=== PATIENT | female | born 1975 | race Two or more races ===

== ENCOUNTER 2020-04-17 10:38 | Outpatient (REF) | payer OTHER, SELFPAY ==
--- NOTE | ~2020-04-17 | XR_ITS ---
EXAMINATION: XR KNEE, LEFT CLINICAL INFORMATION: Left knee pain. COMPARISON: None TECHNIQUE: Four views of the left knee. FINDINGS: Mild medial femoral-tibial and patellofemoral degenerative joint changes are seen. There is no acute fracture, dislocation or joint effusion. The soft tissues are unremarkable. XR/XR knee LT 4V IMPRESSION: Mild osteoarthritis. No acute fracture.
== END 2020-04-17 10:39 | disposition home or self-care (01) ==
LOC: HO.HMGCX 10:38
PROVIDERS: Absent Provider Nurse Practitioner Family; PCP Nurse Practitioner Family; Visit Provider Nurse Practitioner Family
DX: M25.562 Pain in left knee (principal)
CPT/HCPCS: 73564

== ENCOUNTER 2020-06-08 09:00 | Outpatient (RCR) | payer OTHER, SELFPAY ==
--- NOTE | 2020-04-29 15:33 | MHC.PT.EP ---
[facility] [place] Office [place] Office [place] Office [address] [phone] F: [phone] F: [phone] F: [phone] F: [phone] Physical Therapy Plan of Care Date of Evaluation: 04/29/20 Date of Surgery: Diagnosis: L knee pain, L knee OA. Assessment: Pt is a 44 y/o female referred to PT for eval and treat of L knee pain who presents with signs and sx consistent with L knee dysfunction resulting in decreased tolerance and ability to perform ambulatory and standing tasks for duration, performing squatting activities and heavy HH chores secondary to decreased B hip and L knee strength, decreased L knee ROM as well as decreased LE posture, increased tissue tension, gait abnormality and pain. Pt is deemed an appropriate candidate to receive skilled PT in order to address her physical limitations to improve her functional ability. Frequency and Duration: The patient will be seen 2 x / wk x 5 wks. Short Term Goals: In 1 week: initiate HEP with evidence of compliance. In 3 weeks: improve baseline pain to < 6/10, initial 10/10 with activity. In 3 weeks:improve L knee flexion ROM to > 114 degrees; initial 100. Alf Goals: In 5 weeks: Pt will report able to walk 2 blocks with at most a little bit of difficulty; initial: quite a bit of difficulty (LEFI) In 5 weeks: Pt will achieve > 4+/5 L knee extension MMT: initial: 4-/5. Treatment Plan: Modalities to reduce pain, spasms and effusion. Manual therapy to restore motion and function. Therapeutic exercise to improve strength and flexibility. Neuromuscular re-education for posture and balance. Therapeutic activities to return to functional activities of daily living. Electronically signed by: Khris Ceballos PT. Please sign and return to therapist. Thank you for your referral.
--- NOTE | 2020-06-08 16:32 | MHC.PT.DC ---
[facility] [place] Office [place] Office [place] Office [address] [phone] F: [phone] F: [phone] F: [phone] F: [phone] Physical Therapy Discharge Report Diagnosis: L knee pain, L knee OA. Date of Surgery: Date of Evaluation: 04/29/20 Date of Discharge: Treatments to Date: 10 Cancellations to Date: 0 No Shows to Date: 0 Discharge Status: Achieved Goals Improved Function Independent with HEP Discharge Summary: Nimisha has been and active, and motivated participant in her therapy in and out of the clinic having improved her knee pain and function and met her realistic goals within the POC timeline. Pt continues to have pain with walking long distances and stairs are still a challenge though Pt is improved and is I with her home program and is motivated to continue on her own. Electronically signed by: Khris Ceballos PT. Please sign and return to therapist. Thank you for your referral.
== END 2020-06-08 16:33 | disposition home or self-care (01) ==
LOC: HO.PTCHIC 09:00
PROVIDERS: PCP Nurse Practitioner Family; Visit Provider Nurse Practitioner Family
DX: M25.562 Pain in left knee (principal)
CPT/HCPCS: 97110; 97162

== ENCOUNTER → 2020-06-16 12:13 | Outpatient (BNVA) | payer OTHER, SELFPAY | PROVIDERS: PCP Nurse Practitioner Family; Visit Provider Surgery | DX: Z01.818 Encounter for other preprocedural examination (principal); E66.01 Morbid (severe) obesity due to excess calories; R06.02 Shortness of breath; Z68.43 Body mass index [BMI] 50.0-59.9, adult | CPT/HCPCS: 99202 ==

== ENCOUNTER → 2020-07-03 08:13 | Outpatient (BNVA) | payer OTHER, SELFPAY | PROVIDERS: PCP Nurse Practitioner Family; Visit Provider Surgery | DX: E66.01 Morbid (severe) obesity due to excess calories (principal); Z68.43 Body mass index [BMI] 50.0-59.9, adult | CPT/HCPCS: 99212 ==

== ENCOUNTER → 2020-07-17 08:40 | Outpatient (BNVA) | payer OTHER, SELFPAY | PROVIDERS: PCP Nurse Practitioner Family; Visit Provider Dietitian, Registered | DX: E66.9 Obesity, unspecified (principal); Z68.43 Body mass index [BMI] 50.0-59.9, adult | CPT/HCPCS: 97802 ==

== ENCOUNTER 2020-08-04 13:52 | Outpatient (REF) | payer OTHER, SELFPAY ==
[2020-08-05 14:22] LABS: H Pylori Breath Test NOT DETECTED (NOT DETECTED)
== END 2020-08-04 13:53 | disposition home or self-care (01) ==
LOC: HO.LNP 13:52
PROVIDERS: PCP Nurse Practitioner Family; Referring Provider Nurse Practitioner Family; Visit Provider Physician Assistant
DX: Z01.818 Encounter for other preprocedural examination (principal); E66.01 Morbid (severe) obesity due to excess calories; E78.5 Hyperlipidemia, unspecified; E11.9 Type 2 diabetes mellitus without complications; K21.9 Gastro-esophageal reflux disease without esophagitis; F32.9 Major depressive disorder, single episode, unspecified; F41.8 Other specified anxiety disorders; F17.200 Nicotine dependence, unspecified, uncomplicated; Z68.43 Body mass index [BMI] 50.0-59.9, adult; Z88.8 Allergy status to other drugs, medicaments and biological substances; Z11.0 Encounter for screening for intestinal infectious diseases; Z71.3 Dietary counseling and surveillance
CPT/HCPCS: 83013; 99211; 99212

== ENCOUNTER 2020-08-11 08:16 | Outpatient (REF) | payer OTHER, SELFPAY ==
--- NOTE | ~2020-08-11 | XR_ITS ---
EXAMINATION: CHEST. Lumbar spine. CLINICAL INFORMATION: Redness of breath. Low back pain. COMPARISON: None TECHNIQUE: Chest 2 views. Lumbar spine 3 views. FINDINGS: Chest: The lungs are well-expanded and clear. The heart size and pulmonary vascularity is normal. No gross bony abnormality seen. Lumbar spine: There is normal lumbar lordosis. The vertebral heights, alignment and disc heights are normal. There is no visible acute fracture, dislocation or subluxation seen. Incidental finding of an IUD in the pelvis. XR/XR lumbar spine 2-3V IMPRESSION: Unremarkable chest exam. Unremarkable lumbar spine exam.
--- NOTE | ~2020-08-11 | XR_ITS ---
EXAMINATION: CHEST. Lumbar spine. CLINICAL INFORMATION: Redness of breath. Low back pain. COMPARISON: None TECHNIQUE: Chest 2 views. Lumbar spine 3 views. FINDINGS: Chest: The lungs are well-expanded and clear. The heart size and pulmonary vascularity is normal. No gross bony abnormality seen. Lumbar spine: There is normal lumbar lordosis. The vertebral heights, alignment and disc heights are normal. There is no visible acute fracture, dislocation or subluxation seen. Incidental finding of an IUD in the pelvis. XR/XR chest 2V IMPRESSION: Unremarkable chest exam. Unremarkable lumbar spine exam.
--- NOTE | 2020-08-11 13:13 | ECG_ITS ---
Test Reason : SOB Blood Pressure : / mmHG Vent. Rate : 082 BPM Atrial Rate : 082 BPM P-R Int : 156 ms QRS Dur : 090 ms QT Int : 376 ms P-R-T Axes : 060 022 049 degrees QTc Int : 439 ms Normal sinus rhythm Normal ECG When compared with ECG of 22-AUG-2017 11:19, No significant change was found Referred By: Danielle Rincon Electronically Signed By:Juancarlos Lr
[2020-08-11 14:50] LABS: Alanine Aminotransferase 18 U/L (0-31); Albumin Level 4.1 g/dL (3.5-5.0); Alkaline Phosphatase 89 U/L (39-117); Anion Gap 13 (12-20); Aspartate Amino Transferase 13 U/L (5-31); B Type Natriuretic Peptide < 10 pg/mL (<100); Bilirubin Total 0.6 mg/dL (0.0-1.0); Blood Urea Nitrogen 14 mg/dL (9-16); Calcium 9.7 mg/dL (8.4-10.2); Carbon Dioxide 28 mmol/L (22-29); Chloride 105 mmol/L (96-108); Estimated Glomerular Filt Rate > 60; Glucose Random 70 mg/dL (60-115); Potassium 3.9 mmol/L (3.3-5.1); Sodium 142 mmol/L (135-145); Total Protein 7.3 g/dL (6.5-8.0)
[2020-08-11 15:05] LABS: TSH reflex Free T4 3.13 uIU/mL (0.32-4.0)
== END 2020-08-11 08:17 | disposition home or self-care (01) ==
LOC: HO.XRAY 08:16
PROVIDERS: Absent Provider Surgery; PCP Nurse Practitioner Family; Referring Provider Nurse Practitioner Family; Visit Provider Physician Assistant
DX: M54.5 Low back pain (principal); R06.02 Shortness of breath; M79.89 Other specified soft tissue disorders; E66.01 Morbid (severe) obesity due to excess calories
CPT/HCPCS: 36415; 71046; 72100; 80053; 83880; 84443; 93005; Q3014

== ENCOUNTER 2020-08-18 14:02 | Outpatient (REF) | payer OTHER, SELFPAY ==
--- NOTE | ~2020-08-18 | MM_ITS ---
EXAMINATION: MM SCREENING DIGITAL BREAST TOMOSYNTHESIS, BILATERAL CLINICAL INFORMATION: Screening. Asymptomatic. The lifetime risk of breast cancer based on the Tyrer-Cuzick Model is 7%. COMPARISON: Mammography: 11/08/2018 TECHNIQUE: Digital breast tomosynthesis is performed in both the craniocaudal and mediolateral oblique views along with computer-aided detection (CAD). Synthesized 2D images are generated from the tomosynthesis. Additional views are provided: Right cleavage, bilateral MLO. FINDINGS: There are scattered areas of fibroglandular density (ACR BI-RADS breast composition Category b). Breast tissue composition borders on predominantly fatty. Background stromal and fibroglandular markings are stable. There is no developing density or interval mass or architectural abnormality. No abnormal calcifications. Skin contours are smooth. MM/MM tomosynthesis screening BI IMPRESSION: No mammographic evidence of malignancy. ASSESSMENT: BI-RADS 1: Negative RECOMMENDATION: Routine annual mammography screening. This patient's information was entered into a reminder system with a target due date for their next mammogram.
== END 2020-08-18 14:03 | disposition home or self-care (01) ==
LOC: HO.MAMMO 14:02
PROVIDERS: Visit Provider Nurse Practitioner Family
DX: Z12.31 Encounter for screening mammogram for malignant neoplasm of breast (principal)
CPT/HCPCS: 77063; 77067

== ENCOUNTER → 2020-08-19 14:06 | Outpatient (BNVA) | payer OTHER, SELFPAY | PROVIDERS: PCP Nurse Practitioner Family; Visit Provider Surgery | DX: E66.01 Morbid (severe) obesity due to excess calories (principal); Z68.44 Body mass index [BMI] 60.0-69.9, adult | CPT/HCPCS: 99212 ==

== ENCOUNTER 2020-08-21 08:33 | Outpatient (REF) | payer OTHER, SELFPAY ==
[2020-08-21 10:00] LABS: MANUAL DIFF FLAG NO
[2020-08-21 10:07] LABS: Basophils Percent Auto 0.2 % (0-2); Eosinophils Absolute Auto 0.3 X10*3/uL (0.0-0.4); Eosinophils Percent Auto 3.7 % (0-4); Hematocrit 34.9 % (37-47); Hemoglobin 11.4 g/dl (12.0-16.0); Imm Gran Abs Auto 0.04 X10*3/uL (0.00-0.03); Imm Gran Pct Auto 0.5 % (0.0-0.4); Lymphocytes Absolute Auto 3.4 X10*3/uL (1.2-4.9); Lymphocytes Percent Auto 37.8 % (20-40); Mean Corpuscular HGB Conc 32.7 g/dl (31.0-35.0); Mean Corpuscular Hemoglobin 29.9 pg (27.0-33.0); Mean Corpuscular Volume 91.6 fL (80-98); Mean Platelet Volume 10.7 fL (9.4-12.3); Monocytes Absolute Auto 0.6 X10*3/uL (0.1-1.2); Monocytes Percent Auto 6.9 % (2-11); Neutrophils Absolute Auto 4.5 X10*3/uL (2.0-8.3); Neutrophils Percent Auto 50.9 % (45-73); Platelet Count 241 X10*3/uL (160-400); Red Blood Count 3.81 X10*6/uL (4.20-5.50); Red Cell Distribution Width 13.9 % (11.0-16.0); White Blood Count 8.9 X10*3/uL (4.8-10.8)
[2020-08-21 10:27] LABS: Alanine Aminotransferase 14 U/L (0-31); Alkaline Phosphatase 86 U/L (39-117); Anion Gap 13 (12-20); Aspartate Amino Transferase 13 U/L (5-31); Bilirubin Total 0.5 mg/dL (0.0-1.0); Blood Urea Nitrogen 15 mg/dL (9-16); C Reactive Protein 0.36 mg/dL (< or = 0.50); Carbon Dioxide 26 mmol/L (22-29); Chloride 108 mmol/L (96-108); Cholesterol 124 mg/dL; Estimated Glomerular Filt Rate > 60; Glucose Fasting 107 mg/dL (60-99); HDL Cholesterol 41 mg/dL; Iron 64 mcg/dL (30-160); LDL Cholesterol Calculated 72 mg/dl; Percent Iron Saturation 21 % (15-50); Sodium 143 mmol/L (135-145); Total Iron Binding Capacity 301 mcg/dL (228-428); Total Protein 7.1 g/dL (6.5-8.0); Triglycerides 55 mg/dL; Unsaturated Iron Binding 237 ug/dL
[2020-08-21 10:39] LABS: Vitamin B12 221 pg/mL (200-900)
[2020-08-21 10:41] LABS: Estimated Average Glucose 183 mg/dL
[2020-08-21 10:49] LABS: Thyroid Stimulating Hormone 5.67 uIU/mL (0.32-4.0); Vitamin D 25-OH Total 30.1 ng/mL (>30)
[2020-08-25 02:46] LABS: Zinc 62 mcg/dL (60-130)
[2020-08-25 10:02] LABS: Calcium (PTHI) 9.4 mg/dL (8.6-10.2); PTHI 27 pg/mL (14-64)
[2020-08-26 16:22] LABS: Vitamin B1 9 nmol/L (8-30)
[2020-08-26 20:27] LABS: Vitamin A 50 mcg/dL (38-98)
== END 2020-08-21 08:34 | disposition home or self-care (01) ==
LOC: HO.LAB 08:33
PROVIDERS: PCP Nurse Practitioner Family; Visit Provider Surgery
DX: Z01.818 Encounter for other preprocedural examination (principal); K91.2 Postsurgical malabsorption, not elsewhere classified; Z90.3 Acquired absence of stomach [part of]
CPT/HCPCS: 36415; 80053; 80061; 82306; 82607; 83036; 83540; 83970; 84425; 84443; 84590; 84630; 85025; 86140

== ENCOUNTER → 2020-08-26 09:37 | Outpatient (BNVA) | payer OTHER, SELFPAY | PROVIDERS: PCP Nurse Practitioner Family; Visit Provider Obstetrics & Gynecology ==

== ENCOUNTER → 2020-09-07 11:15 | Outpatient (BNVA) | payer OTHER, SELFPAY | PROVIDERS: Visit Provider Obstetrics & Gynecology | CPT/HCPCS: Q3014 ==

== ENCOUNTER → 2020-09-08 14:29 | Outpatient (BNVA) | payer OTHER, SELFPAY | PROVIDERS: PCP Nurse Practitioner Family; Visit Provider Physician Assistant | DX: E66.01 Morbid (severe) obesity due to excess calories (principal); Z68.43 Body mass index [BMI] 50.0-59.9, adult | CPT/HCPCS: 99212 ==

== ENCOUNTER 2020-09-16 12:50 | Outpatient (REF) | payer OTHER, SELFPAY ==
[2020-09-16 14:30] LABS: Free T4 (Free Thyroxine) 0.85 ng/dL (0.71-1.85); HCG Quantitative < 2 mIU/mL
[2020-09-17 14:07] LABS: Triiodothyronine T3 Free 2.7 pg/mL (2.3-4.2)
[2020-09-17 17:47] LABS: Prolactin 45.4 ng/mL
== END 2020-09-16 12:51 | disposition home or self-care (01) ==
LOC: HO.LAB 12:50
PROVIDERS: PCP Nurse Practitioner Family; Visit Provider Obstetrics & Gynecology
DX: N91.2 Amenorrhea, unspecified (principal)
CPT/HCPCS: 36415; 84146; 84439; 84481; 84702

== ENCOUNTER 2020-09-18 13:36 | Outpatient (REF) | payer OTHER, SELFPAY ==
[2020-09-19 10:16] LABS: Prolactin 42.3 ng/mL
== END 2020-09-18 13:37 | disposition home or self-care (01) ==
LOC: HO.LAB 13:36
PROVIDERS: PCP Nurse Practitioner Family; Visit Provider Obstetrics & Gynecology
DX: N91.2 Amenorrhea, unspecified (principal)
CPT/HCPCS: 36415; 84146

== ENCOUNTER → 2020-09-22 15:00 | Outpatient (BNVA) | payer OTHER, SELFPAY | PROVIDERS: PCP Nurse Practitioner Family; Referring Provider Nurse Practitioner Family; Visit Provider Surgery | DX: E66.01 Morbid (severe) obesity due to excess calories (principal); Z68.43 Body mass index [BMI] 50.0-59.9, adult | CPT/HCPCS: 99212 ==

== ENCOUNTER 2020-09-24 13:27 | Outpatient (REF) | payer OTHER, SELFPAY ==
--- NOTE | ~2020-09-24 | US_ITS ---
EXAMINATION: ULTRASOUND PELVIS AND TRANSVAGINAL CLINICAL INFORMATION: Amenorrhea. COMPARISON: None TECHNIQUE: Transabdominal and transvaginal imaging of pelvis is performed. The exam is limited secondary to patient's body habitus. FINDINGS: The uterus is anteverted and anteflexed measuring 6.5 cm wide. The length could not be obtained. The endometrial thickness is not well visualized. The uterus is homogeneous otherwise. Both ovaries are not seen. There is no free fluid in the cul-de-sac. US/US pelvic and transvaginal IMPRESSION: Limited exam secondary to patient's body habitus. Unremarkable uterus. The ovaries are not seen. No free fluid in the cul-de-sac.
== END 2020-09-24 13:28 | disposition home or self-care (01) ==
LOC: HO.US 13:27
PROVIDERS: Visit Provider Obstetrics & Gynecology
DX: N91.2 Amenorrhea, unspecified (principal)
CPT/HCPCS: 76830; 76856

== ENCOUNTER → 2020-09-29 07:57 | Outpatient (BNVA) | payer OTHER, SELFPAY | PROVIDERS: Visit Provider Obstetrics & Gynecology | DX: Z30.432 Encounter for removal of intrauterine contraceptive device (principal); E22.1 Hyperprolactinemia | CPT/HCPCS: 58301; 99212 ==

== ENCOUNTER → 2020-10-20 13:12 | Outpatient (BNVA) | payer OTHER, SELFPAY | PROVIDERS: Visit Provider Surgery | DX: E66.01 Morbid (severe) obesity due to excess calories (principal); E78.5 Hyperlipidemia, unspecified; K21.9 Gastro-esophageal reflux disease without esophagitis; E11.65 Type 2 diabetes mellitus with hyperglycemia; I10 Essential (primary) hypertension; F17.200 Nicotine dependence, unspecified, uncomplicated; Z68.44 Body mass index [BMI] 60.0-69.9, adult; Z88.1 Allergy status to other antibiotic agents; Z88.8 Allergy status to other drugs, medicaments and biological substances; Z79.899 Other long term (current) drug therapy | CPT/HCPCS: 99212 ==

== ENCOUNTER → 2020-12-07 09:28 | Outpatient (REF) | payer OTHER, SELFPAY ==
--- NOTE | 2020-12-07 09:32 | CA_ITS ---
Transthoracic Echocardiogram Patient (Last, First, Middle): Nimisha Schultz C Gender: Female Date of : 1975 Age: 45 Procedure Date: 12/07/2020 Procedure Type: Transthoracic Echocardiogram Location: OP Height: 152.4 cm Weight: 136.08 kg BSA: 2.22 m2 Heart Rate: bpm BP: 130 / 70 mmHg Energy Management Specialist: VALERIE Referring MD: Nile Pruett OPHTHALMIC TECHNICIAN- Symptoms: M79.89 - Other specified soft tissue disorders Study Quality: Fair/Refused contrast ECG Rhythm: Sinus Conclusions: - The left ventricular systolic function is normal. The visually estimated ejection fraction is between 55-60%. - No obvious valvular pathology seen on this study. Findings Procedure Information The patient declines contrast. Left Ventricle Normal left ventricular cavity size. There is mildly increased left ventricular wall thickness. The left ventricular systolic function is normal. The visually estimated ejection fraction is between 55-60%. There is no evidence of regional wall motion abnormalities. Diastolic function is normal for age. Right Ventricle Normal right ventricular cavity size. There is low normal right ventricular systolic function. TAPSE 1.8cm. Atria Both atria are normal in size. Aortic Valve There is a normal trileaflet aortic valve. There is no aortic valve stenosis. The mean gradient is 7 mmHg. There is no aortic valve regurgitation. Mitral Valve There is mild mitral annular calcification. There is no mitral valve regurgitation. There is no mitral valve stenosis. Pulmonic Valve The pulmonic valve was not well visualized. Tricuspid Valve Normal tricuspid valve structure. There is trace tricuspid valve regurgitation. The pulmonary artery systolic pressure is normal. Great Vessels The asc aorta and aortic arch are normal in size. Venous The inferior vena cava is normal in size and collapses greater than 50% with inspiration. Pericardium/Pleural There is no evidence of pericardial effusion. Prior Study Comparison No prior study available for comparison. Recommendations, Care & Conclusions No obvious valvular pathology seen on this study. Measurements 2D Linear Measurements IVSd: 1.08 0.6-0.9/0.6-1.0 cm LVIDd: 5.40 3.9-5.3/4.2-5.9 cm LVIDd Index: 2.43 2.4-3.2/2.2-3.1 cm/m2 LVIDs: 3.93 2.0-3.6 cm LVPWd: 1.04 0.7-1.1 cm Ao Root: 2.50 2.1-3.5 cm LA Diam: 3.80 2.7-3.8/3.0-4.0 cm LAIDs Index: 1.71 1.5-2.3 cm/m2 LV Mass: 278.51 67-162/88-224 g LV Mass Index: 125.45 43-95/49-115 g/m2 LVOT Diam: 2.10 3.0+(-)1.3 cm Mitral Valve MV Pk E: 0.93 MV PK A: 0.76 MV Decel Time: 214.00 E/A: 1.20 E'Lateral: 6.42 E'Medial: 6.20 E/E' Med: 15.10 E/E' Lat: 14.50 PHT: 63.00 MVA PHT: 3.49 Decel [place]: 4.36 Aortic Valve AoV Pk Pedro: 1.89 AoV Mn Pedro: 1.29 AoV VTI: 0.41 AoV Pk Grad: 14.00 Aov Mn Grad: 7.00 DENNYS Cont.VTI: 1.69 LVOT LVOT Pk Pedro: 0.87 LVOT Mn Pedro: 0.60 LVOT VTI: 0.20 LVOT Pk Grad: 3.00 LVOT Mn Grad: 2.00 LVOT Diam: 2.10 LVOT Area: 3.46 Diastolic Function MV Pk E: 0.93 MV Pk A: 0.76 E/A: 1.20 E'Medial: 6.20 E/E' Med: 15.10 E' Laterial: 6.42 E/E' Lat: 14.50 Right Ventricle TAPSE (mm): 1.80 TVS' Pedro: 12.10 Tricuspid Valve TR Pk Pedro: 1.51 TR Pk Grad: 9.00 RA Press: 3.00 RVSP: 12.00 Great Vessels Aorta Ao Root-2D: 2.50 2.0-3.7 cm Ao Asc: 3.00 2.1-3.4 cm Ao Arch: 2.70 Updated in Other Vendor System with Status of Final Frankie Fountain MD electronically signed on 12/07/2020 3:38:12 PM with status of Final
== END ==
LOC: HO.CARD 09:28
PROVIDERS: PCP Nurse Practitioner Family; Visit Provider Nurse Practitioner Family
DX: R60.0 Localized edema (principal); M79.89 Other specified soft tissue disorders
CPT/HCPCS: 93306

== ENCOUNTER → 2020-12-08 14:01 | Outpatient (BNVA) | payer OTHER, SELFPAY | PROVIDERS: Referring Provider Nurse Practitioner Family; Visit Provider Surgery | DX: E66.01 Morbid (severe) obesity due to excess calories (principal); Z68.43 Body mass index [BMI] 50.0-59.9, adult | CPT/HCPCS: 99212 ==

== ENCOUNTER → 2020-12-31 12:58 | Outpatient (BNVA) | payer OTHER, SELFPAY | PROVIDERS: PCP Nurse Practitioner Family; Visit Provider Physician Assistant Surgical | DX: E66.01 Morbid (severe) obesity due to excess calories (principal); Z68.43 Body mass index [BMI] 50.0-59.9, adult | CPT/HCPCS: 99212 ==

== ENCOUNTER → 2021-02-01 14:48 | Outpatient (BNVA) | payer OTHER, SELFPAY | PROVIDERS: PCP Nurse Practitioner Family; Referring Provider Nurse Practitioner Family; Visit Provider Physician Assistant Surgical | DX: E66.01 Morbid (severe) obesity due to excess calories (principal); Z68.43 Body mass index [BMI] 50.0-59.9, adult | CPT/HCPCS: 99212 ==

== ENCOUNTER → 2021-02-17 08:05 | Outpatient (BNVA) | payer OTHER, SELFPAY | PROVIDERS: PCP Nurse Practitioner Family; Visit Provider Dietitian, Registered | DX: E66.01 Morbid (severe) obesity due to excess calories (principal); Z68.43 Body mass index [BMI] 50.0-59.9, adult | CPT/HCPCS: 97803 ==

== ENCOUNTER → 2021-03-19 08:08 | Outpatient (BNVA) | payer OTHER, SELFPAY | PROVIDERS: PCP Nurse Practitioner Family; Referring Provider Surgery; Visit Provider Dietitian, Registered | DX: E66.01 Morbid (severe) obesity due to excess calories (principal); Z68.43 Body mass index [BMI] 50.0-59.9, adult | CPT/HCPCS: 97803 ==

== ENCOUNTER → 2021-04-20 15:27 | Outpatient (BNVA) | payer OTHER, SELFPAY | PROVIDERS: PCP Nurse Practitioner Family; Referring Provider Nurse Practitioner Family; Visit Provider Physician Assistant Surgical | DX: E66.01 Morbid (severe) obesity due to excess calories (principal); Z68.43 Body mass index [BMI] 50.0-59.9, adult | CPT/HCPCS: 99212 ==

== ENCOUNTER → 2021-06-25 14:27 | Outpatient (BNVA) | payer OTHER, SELFPAY | PROVIDERS: PCP Nurse Practitioner Family; Referring Provider Nurse Practitioner Family; Visit Provider Physician Assistant Surgical | DX: E66.01 Morbid (severe) obesity due to excess calories (principal); Z68.43 Body mass index [BMI] 50.0-59.9, adult | CPT/HCPCS: 99212 ==

== ENCOUNTER 2021-07-19 13:15 | Emergency (ER) | payer OTHER, SELFPAY ==
[2021-07-19 13:35] VITALS: BP 124/48; PULSE 95; RESP 16; TEMP 36.1; O2SAT 98; BMI 58.6
[2021-07-19 13:58] LABS: MANUAL DIFF FLAG NO
[2021-07-19 14:04] LABS: Basophils Percent Auto 0.3 % (0-2); Eosinophils Absolute Auto 0.1 X10*3/uL (0.0-0.4); Eosinophils Percent Auto 1.1 % (0-4); Hematocrit 30.4 % (37.0-47.0); Hemoglobin 10.1 g/dl (12.0-16.0); Imm Gran Abs Auto 0.05 X10*3/uL (0.00-0.03); Imm Gran Pct Auto 0.5 % (0.0-0.4); Lymphocytes Absolute Auto 3.1 X10*3/uL (1.2-4.9); Lymphocytes Percent Auto 33.3 % (20-40); Mean Corpuscular HGB Conc 33.2 g/dl (31.0-35.0); Mean Corpuscular Hemoglobin 30.5 pg (27.0-33.0); Mean Corpuscular Volume 91.8 fL (80.0-98.0); Mean Platelet Volume 11.4 fL (9.4-12.3); Monocytes Absolute Auto 0.7 X10*3/uL (0.1-1.2); NRBC Pct Auto 0.2 /100WBC (0.0-0.2); Neutrophils Absolute Auto 5.4 x10*3/uL (2.0-8.3); Neutrophils Percent Auto 57.8 % (45-73); Platelet Count 246 X10*3/uL (160-400); Red Blood Count 3.31 X10*6/uL (4.20-5.50); Red Cell Distribution Width 13.3 % (11.0-16.0); White Blood Count 9.3 X10*3/uL (4.8-10.8)
[2021-07-19 14:15] LABS: Glucose, Whole Blood 585 mg/dL (60-115)
[2021-07-19 14:21] LABS: Anion Gap 21 (12-20); Blood Urea Nitrogen 56 mg/dL (9-16); Calcium 9.6 mg/dL (8.4-10.2); Carbon Dioxide 20 mmol/L (22-29); Chloride 91 mmol/L (96-108); Creatinine Clr Calc Pharmacy 26.9; Estimated Glomerular Filt Rate 15; Glucose Random 664 mg/dL (60-115); Potassium 5.7 mmol/L (3.3-5.1); Sodium 126 mmol/L (135-145)
[2021-07-19 14:44] VITALS: BP 111/50; PULSE 88; TEMP 36.9; O2SAT 97
--- NOTE | 2021-07-19 14:52 | ED.GENADULT ---
HPI - General Adult General Chief complaint: Recheck/Abnormal Lab/Rx Stated complaint: High blood sugar 500+ Time Seen by Provider: 07/19/21 14:42 Source: patient and family Mode of arrival: ambulatory Limitations: no limitations History of Present Illness MD complaint: elevated BS, weakness Onset (ago): week(s) (2) Severity: moderate Quality: constant Relieving factors: rest Exacerbating factors: movement Associated symptoms: loss of appetite, malaise, nausea/vomiting, syncope (near), weakness and other (elevated BS, depressed not taking her insulin the way she should but reports she is not suicidal ) Treatments prior to arrival: none Related Data Home Medications Medication Instructions Recorded Confirmed alprazolam 1 mg tablet 1 mg PO TID PRN 06/16/20 06/25/21 benztropine 0.5 mg tablet 0.5 mg PO BID 06/16/20 06/25/21 blood sugar diagnostic #10 ea 06/16/20 06/25/21 buspirone 30 mg tablet 30 mg PO BID 06/16/20 06/25/21 escitalopram oxalate 20 mg tablet 20 mg PO DAILY 06/16/20 06/25/21 insulin regular hum U-500 conc 125 unit SUBCUT TID ml 06/16/20 06/25/21 lancets 28 gauge #100 ea 06/16/20 06/25/21 mirtazapine 15 mg tablet 15 mg PO BEDTIME 06/16/20 06/25/21 pen needle, diabetic 31 gauge x #1200 ea 06/16/20 06/25/21 5/16 risperidone 3 mg tablet 3 mg PO BEDTIME 06/16/20 06/25/21 dulaglutide 3 mg/0.5 mL 1.5 mg SUBCUT QWEEK ml 04/20/21 06/25/21 subcutaneous pen injector (Trulicity) Previous Rx's Medication Instructions Recorded gabapentin 600 mg tablet 600 mg PO BID 90 Days #180 tab 02/02/21 lisinopril 40 mg tablet 40 mg PO DAILY 90 Days #90 tab 03/08/21 cholecalciferol (vitamin D3) 50 50 mcg PO DAILY 90 Days #90 cap 04/14/21 mcg (2,000 unit) capsule atorvastatin 40 mg tablet 40 mg PO DAILY #90 tab 06/09/21 pantoprazole 40 mg tablet,delayed 40 mg PO BID 90 Days #180 tab 06/09/21 release metoprolol succinate 25 mg 12.5 mg PO DAILY 30 Days #15 tab 06/22/21 tablet,extended release 24 hr furosemide 20 mg tablet 20 mg PO DAILY #30 tab 07/05/21 Allergies Allergy/AdvReac Type Severity Reaction Status Date / Time azithromycin Allergy Unknown (states Verified 07/17/21 12:56 she can take a Zpack) otherwise, throat closes erythromycin base Allergy Unknown THROAT Verified 07/17/21 12:56 [ERYTHROMYCIN BASE] CLOSES UP lamotrigine [From LAMICTAL] Allergy Unknown ANAPHYLAXIS Verified 07/17/21 12:56 Erythromycin Allergy Unknown anaphylaxis Uncoded 07/17/21 12:56 Review of Systems Review of Systems: Constitutional : No Weight loss, No Fever, No Chills, pos Fatigue, pos Malaise ENT/Mouth : No sore throat, No Rhinorrhea Eyes: No Eye Pain, No Swelling, No Redness Cardiovascular : No Chest Pain, No SOB, No Dyspnea on Exertion, No Orthopnea, No Edema, No Palpitations Respiratory : No Cough, No Sputum, No Wheezing Gastrointestinal : pos Nausea, No Vomiting, No Diarrhea, No Constipation, No abdominal Pain, No Hematochezia, No Melena Genitourinary : No Dysuria, No Urinary Frequency, No Hematuria, Musculoskeletal : No joint pain, No Myalgias, No Joint Swelling Skin : No Skin Lesions, No rash Neuro : pos Weakness, No Numbness, No Dizziness, No Headache Psych : No Anxiety/Panic, pos Depression Heme/Lymph: No Bruising, No Bleeding,No Lymphadenopathy Endocrine : pos Polyuria, pos Polydipsia All other systems reviewed and are negative ON LICENSE OF [facility] Past Medical History Attestation statement: The following information was validated with the patient. Medical History Anxiety Asthma Bipolar 1 disorder Dyslipidemia GERD (gastroesophageal reflux disease) HTN (hypertension) Insomnia Severe depression Uncontrolled diabetes mellitus Surgical History History of Hx of tubal ligation S/P cholecystectomy Family History Family History Father Hypertension Diabetes Mother No problems noted. Sister No problems noted. Son No problems noted. Son No problems noted. Daughter No problems noted. Social History Social History Housing: Apartment Alcohol intake: never Patient Tobacco Use Status: Former Tobacco user Quit Date: 09/13/2020 Years Smoked: quit 09/13/2020 e-Cigarette/Vaping Use: Never Used Second Hand Smoke Exposure: Yes service: No Current occupational status: disabled Physical Exam ED Vital Signs: Vital Signs - 24 hr 07/19/21 13:35 07/19/21 14:44 Temperature 97.0 F 98.5 F Pulse Rate 95 88 Respiratory Rate 16 Blood Pressure 124/48 L 111/50 L Pulse Oximetry 98 97 BMI result Body Mass Index 58.6 Appearance: Alert. Oriented X3. No acute distress. Anxious Eyes: Pupils equal, round and reactive to light. ENT: Pharynx very dry MM Neck: Normal inspection. Neck supple. CVS: Normal heart rate and rhythm. Pulses normal. Respiratory: No respiratory distress. Breath sounds normal. Abdomen: Soft and nontender. Skin: Skin warm and dry. Normal skin color. poor skin turgor. Extremities: No lower extremity edema. No calf ttp Neuro: Oriented X 3. No motor deficit. No sensory deficit. Medical Decision Making MDM Narrative Medical decision making narrative: 45 yo female with IDDM, HTN, obesity, bipolar disorder, reports she has not taken her insulin well in 2 weeks and has been feeling sick almost like she is passing out. At this time the patient was told she will need IVF, insulin, imaging, UA and likely admission to the hospital. When she heard this she stated she had to bring her teenage daughter home and will return. She is alert and oriented x 3. I spoke to the on the phone but he states they have no other way to get the child home. The patient was told this was life threatening and that she could but she still states that she needs to leave. Patient instructed to come back PATRICIO. She is leaving against medical advice at this time Lab Data Result diagrams: 07/19/21 13:53 07/19/21 13:53 Labs: Lab Results 07/19/21 07/19/21 07/19/21 Range/Units 13:37 13:53 13:53 WBC 9.3 (4.8-10.8) X10*3/uL RBC 3.31 L (4.20-5.50) X10*6/uL Hgb 10.1 L (12.0-16.0) g/dl Hct 30.4 L (37.0-47.0) % MCV 91.8 (80.0-98.0) fL MCH 30.5 (27.0-33.0) pg MCHC 33.2 (31.0-35.0) g/dl RDW 13.3 (11.0-16.0) % Plt Count 246 (160-400) X10*3/uL MPV 11.4 (9.4-12.3) fL Immature Gran % (Auto) 0.5 H (0.0-0.4) % Neut % (Auto) 57.8 (45-73) % Lymph % (Auto) 33.3 (20-40) % Bartholomew % (Auto) 7.0 (2-11) % Eos % (Auto) 1.1 (0-4) % Baso % (Auto) 0.3 (0-2) % Lymph # (Auto) 3.1 (1.2-4.9) X10*3/uL Bartholomew # (Auto) 0.7 (0.1-1.2) X10*3/uL Eos # (Auto) 0.1 (0.0-0.4) X10*3/uL Baso # (Auto) 0.0 (0.0-0.2) X10*3/uL Abs Immat Gran (auto) 0.05 H (0.00-0.03) X10*3/uL Absolute Neuts (auto) 5.4 (2.0-8.3) x10*3/uL Absolute Nucleated RBC 0.020 H (0.0-0.012) X10*3/uL Nucleated RBC % (auto) 0.2 (0.0-0.2) /100WBC Sodium 126 L (135-145) mmol/L Potassium 5.7 H D (3.3-5.1) mmol/L Chloride 91 L (96-108) mmol/L Carbon Dioxide 20 L (22-29) mmol/L Anion Gap 21 H (12-20) BUN 56 H (9-16) mg/dL Creatinine 3.32 H (0.5-1.4) mg/dL Estim Creat Clear Calc 26.9 Estimated GFR 15 POC Glucose 585 H* (60-115) mg/dL Random Glucose 664 H* D (60-115) mg/dL Calcium 9.6 D (8.4-10.2) mg/dL Discharge Plan Discharge Clinical Impression: Acute hyperglycemia Acute renal failure Qualifiers: Acute renal failure type: unspecified Qualified Code(s): N17.9 - Acute kidney failure, unspecified Patient Disposition: Left Against Medical Advice Additional Instructions: please come back to the emergency department. we do not advise you leaving. this is dangerous to your health. you will require significant workup in the ED including fluids, insulin, imaging of your kidneys Prescriptions: No Action gabapentin 600 mg tablet 600 mg PO BID 90 Days Qty: 180 1RF lisinopril 40 mg tablet 40 mg PO DAILY 90 Days Qty: 90 1RF cholecalciferol (vitamin D3) 50 mcg (2,000 unit) capsule 50 mcg PO DAILY 90 Days Qty: 90 1RF atorvastatin 40 mg tablet 40 mg PO DAILY Qty: 90 0RF pantoprazole 40 mg tablet,delayed release (DR/EC) 40 mg PO BID 90 Days Qty: 180 0RF metoprolol succinate 25 mg tablet extended release 24 hr 12.5 mg PO DAILY 30 Days Qty: 15 3RF furosemide 20 mg tablet 20 mg PO DAILY Qty: 30 3RF Trulicity 3 mg/0.5 mL pen injector 1.5 mg subcut QWEEK 0RF alprazolam 1 mg tablet 1 mg PO TID PRN0RF (DME) FreeStyle Lite Strips Strip See Rx Instructions strip Not Applicable TID Qty: 10 0RF Rx Instructions: As directed buspirone 30 mg tablet 30 mg PO BID 0RF escitalopram oxalate 20 mg tablet 20 mg PO DAILY 0RF mirtazapine 15 mg tablet 15 mg PO BEDTIME 0RF risperidone 3 mg tablet 3 mg PO BEDTIME 0RF benztropine 0.5 mg tablet 0.5 mg PO BID 0RF (DME) pen needle, diabetic 31 gauge x 5/16 needle See Rx Instructions ea subcut QID Qty: 1200 0RF Rx Instructions: As directed (DME) lancets 28 gauge misc See Rx Instructions ea topical TID Qty: 100 0RF Rx Instructions: As directed insulin regular hum U-500 conc 500 unit/mL (3 mL) insulin pen 125 unit subcut TID 0RF Interventions: ED Discharge Assessment Last Done: 07/19/21 14:54
== END 2021-07-19 15:20 | disposition left against medical advice (07) ==
LOC: HO.ED 15:09
PROVIDERS: Emergency Provider Emergency Medicine; PCP Nurse Practitioner Family
DX: E11.65 Type 2 diabetes mellitus with hyperglycemia (principal); N17.9 Acute kidney failure, unspecified; I10 Essential (primary) hypertension; J45.909 Unspecified asthma, uncomplicated; Z91.14 Patient's other noncompliance with medication regimen
CPT/HCPCS: 36415; 80048; 82947; 85025; 99283; 99284

== ENCOUNTER 2021-07-19 15:54 | Inpatient (IN) | payer OTHER, SELFPAY ==
[2021-07-19] VITALS (7 sets, daily range): BP systolic 96–124; BP diastolic 42–56; PULSE 75–92; RESP 16–18; TEMP 36.6–36.9; O2SAT 97–99; BMI 58.6
--- NOTE | ~2021-07-19 | US_ITS ---
EXAMINATION: US RETROPERITONEAL LIMITED (RENAL ONLY) CLINICAL INFORMATION: Acute renal failure. COMPARISON: Abdominal ultrasound on 09/27/2017 TECHNIQUE: Real-time imaging of the kidneys. FINDINGS: RIGHT KIDNEY: 10.5 x 4.7 x 4.8 cm (SAG x AP x TRV). The kidney is normal in size, contour, and echogenicity. Renal cortical thickness is normal. No calculi or focal parenchymal lesions. No hydronephrosis. LEFT KIDNEY: 11.4 x 4.1 x 6.0 cm (SAG x AP x TRV). The kidney is normal in size, contour, and echogenicity. Renal cortical thickness is normal. No calculi or focal parenchymal lesions. No hydronephrosis. US/US renal BI IMPRESSION: Unremarkable renal ultrasound.
--- NOTE | 2021-07-19 16:06 | ECG_ITS ---
Test Reason : HYPERGLYCIMA Blood Pressure : / mmHG Vent. Rate : 086 BPM Atrial Rate : 086 BPM P-R Int : 154 ms QRS Dur : 104 ms QT Int : 368 ms P-R-T Axes : 063 022 027 degrees QTc Int : 440 ms Normal sinus rhythm Nonspecific T wave abnormality Abnormal ECG When compared with ECG of 11-AUG-2020 13:28, No significant change was found Referred By: Marjorie Charles Electronically Signed By:SERGO CORONADO MD
--- NOTE | 2021-07-19 16:15 | ED_ITS ---
HPI - General Adult General Chief complaint: General Medical Stated complaint: Abnormal labs Time Seen by Provider: 07/19/21 16:05 Source: patient and old records reviewed Mode of arrival: ambulatory Limitations: no limitations History of Present Illness MD complaint: hyperglycemia not taking meds, depressed, dizziness Onset (ago): week(s) (2) Severity: moderate Quality: dull and constant Relieving factors: rest Exacerbating factors: eating and movement Associated symptoms: headaches, loss of appetite, malaise, nausea/vomiting and weakness Related Data Home Medications Medication Instructions Recorded Confirmed alprazolam 1 mg tablet 1 mg PO TID PRN 06/16/20 07/19/21 benztropine 0.5 mg tablet 0.5 mg PO BID 06/16/20 07/19/21 blood sugar diagnostic #10 ea 06/16/20 06/25/21 buspirone 30 mg tablet 30 mg PO BID 06/16/20 07/19/21 escitalopram oxalate 20 mg tablet 20 mg PO DAILY 06/16/20 07/19/21 insulin regular hum U-500 conc 150 - 190 unit SUBCUT TID ml 06/16/20 07/19/21 lancets 28 gauge #100 ea 06/16/20 06/25/21 mirtazapine 15 mg tablet 15 mg PO BEDTIME 06/16/20 07/19/21 pen needle, diabetic 31 gauge x #1200 ea 06/16/20 06/25/2107/26 risperidone 3 mg tablet 3 mg PO BEDTIME 06/16/20 07/19/21 atorvastatin 40 mg tablet 40 mg PO BEDTIME 07/19/21 07/19/21 dulaglutide 1.5 mg/0.5 mL 1.5 mg SUBCUT BALLARD 07/19/21 07/19/21 subcutaneous pen injector (Trulicity) ibuprofen 600 mg tablet 1 tab PO TID PRN 07/19/21 07/19/21 multivitamin 1 tab PO DAILY 07/19/21 07/19/21 Previous Rx's Medication Instructions Recorded gabapentin 600 mg tablet 600 mg PO BID 90 Days #180 tab 02/02/21 lisinopril 40 mg tablet 40 mg PO DAILY 90 Days #90 tab 03/08/21 cholecalciferol (vitamin D3) 50 50 mcg PO DAILY 90 Days #90 cap 04/14/21 mcg (2,000 unit) capsule pantoprazole 40 mg tablet,delayed 40 mg PO BID 90 Days #180 tab 06/09/21 release metoprolol succinate 25 mg 12.5 mg PO DAILY 30 Days #15 tab 06/22/21 tablet,extended release 24 hr furosemide 20 mg tablet 20 mg PO DAILY #30 tab 07/05/21 Allergies Allergy/AdvReac Type Severity Reaction Status Date / Time azithromycin Allergy Unknown (states Verified 07/17/21 12:56 she can take a Zpack) otherwise, throat closes erythromycin base Allergy Unknown THROAT Verified 07/17/21 12:56 [ERYTHROMYCIN BASE] CLOSES UP lamotrigine [From LAMICTAL] Allergy Unknown ANAPHYLAXIS Verified 07/17/21 12:56 Erythromycin Allergy Unknown anaphylaxis Uncoded 07/17/21 12:56 Review of Systems Review of Systems: Constitutional : No Weight loss, No Fever, No Chills, pos Fatigue, pos Malaise ENT/Mouth : No sore throat, No Rhinorrhea Eyes: No Eye Pain, No Swelling, No Redness Cardiovascular : No Chest Pain, No SOB, No Dyspnea on Exertion, No Orthopnea, No Edema, No Palpitations Respiratory : No Cough, No Sputum, No Wheezing Gastrointestinal : pos Nausea, No Vomiting, No Diarrhea, No Constipation, No abdominal Pain, No Hematochezia, No Melena Genitourinary : No Dysuria, No Urinary Frequency, No Hematuria, Musculoskeletal : No joint pain, No Myalgias, No Joint Swelling Skin : No Skin Lesions, No rash Neuro : pos Weakness, No Numbness, pos Dizziness, No Headache Psych : No Anxiety/Panic, pos Depression Heme/Lymph: No Bruising, No Bleeding,No Lymphadenopathy Endocrine : pos Polyuria, pos Polydipsia All other systems reviewed and are negative [facility] Past Medical History Attestation statement: The following information was validated with the patient. Source: old records reviewed Medical History Anxiety Asthma Bipolar 1 disorder Dyslipidemia GERD (gastroesophageal reflux disease) HTN (hypertension) Insomnia Severe depression Uncontrolled diabetes mellitus Surgical History History of Hx of tubal ligation S/P cholecystectomy Family History Family History Father Hypertension Diabetes Mother No problems noted. Sister No problems noted. Son No problems noted. Son No problems noted. Daughter No problems noted. Social History Social History Housing: Apartment Alcohol intake: never Patient Tobacco Use Status: Former Tobacco user Quit Date: 09/13/2020 Years Smoked: quit 09/13/2020 e-Cigarette/Vaping Use: Never Used Second Hand Smoke Exposure: Yes Advance Directives: No Advance Directives Information Provided: No Patient : No service: No Current occupational status: disabled Physical Exam ED Vital Signs: Vital Signs - 24 hr 07/19/21 16:02 07/19/21 16:56 07/19/21 18:00 Temperature 98.5 F 98.4 F 98.4 F Pulse Rate 92 86 80 Respiratory Rate 18 16 16 Blood Pressure 100/49 L 102/42 L 96/44 L Pulse Oximetry 97 97 99 07/19/21 18:45 Temperature Pulse Rate Respiratory Rate Blood Pressure 104/44 L Pulse Oximetry BMI result Body Mass Index 58.6 Appearance: Alert. Oriented X3. Mild acute distress. Eyes: Pupils equal, round and reactive to light. ENT: Pharynx dry MM Neck: Normal inspection. Neck supple. CVS: Normal heart rate and rhythm. Pulses normal. Respiratory: No respiratory distress. Breath sounds normal. Abdomen: Soft and non-tender. Skin: Skin warm and dry. pale skin color. poor skin turgor. Extremities: No lower extremity edema. No calf ttp Neuro: Oriented X 3. No motor deficit. No sensory deficit. Course Course Course Narrative: patient is obese IBW is 45kg based off her height IVF bolus for lactic acidosis would be 1350 fluids - 3L NS were ordered lactic acidosis likely due to dehydration and not infection or severe sepsis HCO3 normal and no AG no DKA at this time - negative acetone lactic acid clearing Medical Decision Making MDM Narrative Medical decision making narrative: 45 yo female with hx of obesity, HTN, bipolar disorder here with c/o feeling depressed and not taking care of herself. She admits to occasionally taking her insulin, feeling very thirsty, she feels like she might pass out at times. Was seen earlier and had to leave due to childcare issues - at this time will need IVF x 2L, IV insulin, UA, renal US, merrill or strict I/Os if the patient can get up to the commode. Alfred admit. Lab Data Result diagrams: 07/19/21 16:51 07/19/21 16:51 Labs: Lab Results 07/19/21 07/19/21 07/19/21 Range/Units 16:25 16:31 16:35 WBC (4.8-10.8) X10*3/uL RBC (4.20-5.50) X10*6/uL Hgb (12.0-16.0) g/dl Hct (37.0-47.0) % MCV (80.0-98.0) fL MCH (27.0-33.0) pg MCHC (31.0-35.0) g/dl RDW (11.0-16.0) % Plt Count (160-400) X10*3/uL MPV (9.4-12.3) fL Immature Gran % (Auto) (0.0-0.4) % Neut % (Auto) (45-73) % Lymph % (Auto) (20-40) % [place] % (Auto) (2-11) % Eos % (Auto) (0-4) % Baso % (Auto) (0-2) % Lymph # (Auto) (1.2-4.9) X10*3/uL [place] # (Auto) (0.1-1.2) X10*3/uL Eos # (Auto) (0.0-0.4) X10*3/uL Baso # (Auto) (0.0-0.2) X10*3/uL Abs Immat Gran (auto) (0.00-0.03) X10*3/uL Absolute Neuts (auto) (2.0-8.3) x10*3/uL Absolute Nucleated RBC (0.0-0.012) X10*3/uL Nucleated RBC % (auto) (0.0-0.2) /100WBC PT (9.9-13.0) SEC INR (0.9-1.1) APTT (24.1-38.0) SEC VBG pH (7.32-7.43) VBG pCO2 mmHg VBG pO2 mmHg VBG HCO3 (22-26) mmol/L VBG O2 Saturation % VBG Base Excess mmol/L Sodium (135-145) mmol/L Potassium (3.3-5.1) mmol/L Chloride (96-108) mmol/L Carbon Dioxide (22-29) mmol/L Anion Gap (12-20) BUN (9-16) mg/dL Creatinine (0.5-1.4) mg/dL Estim Creat Clear Calc Estimated GFR POC Glucose > 600 H* > 600 H* (60-115) mg/dL Random Glucose (60-115) mg/dL Lactic Acid (0.5-2.0) mmol/L Lactic Acid F/U @ 2Hr (0.5-2.0) mmol/L Calcium (8.4-10.2) mg/dL Magnesium (1.6-2.6) mg/dL Total Bilirubin (0.0-1.0) mg/dL Direct Bilirubin (0.0-0.5) mg/dL AST (5-31) U/L ALT (0-31) U/L Alkaline Phosphatase (39-117) U/L Total Creatine Kinase (26-140) U/L Troponin I High Sens (<3.5-17.0) ng/L Total Protein (6.5-8.0) g/dL Albumin (3.5-5.0) g/dL Lipase (8-78) U/L Acetone, Qual (Negative) COVID-19 (NUZHAT) Negative (Negative) COVID-19 Clin Com See Note 07/19/21 07/19/21 07/19/21 Range/Units 16:51 16:51 16:51 WBC 9.3 (4.8-10.8) X10*3/uL RBC 3.15 L (4.20-5.50) X10*6/uL Hgb 9.3 L (12.0-16.0) g/dl Hct 29.2 L (37.0-47.0) % MCV 92.7 (80.0-98.0) fL MCH 29.5 (27.0-33.0) pg MCHC 31.8 (31.0-35.0) g/dl RDW 13.4 (11.0-16.0) % Plt Count 234 (160-400) X10*3/uL MPV 11.2 (9.4-12.3) fL Immature Gran % (Auto) 0.4 (0.0-0.4) % Neut % (Auto) 52.3 (45-73) % Lymph % (Auto) 38.9 (20-40) % [place] % (Auto) 7.2 (2-11) % Eos % (Auto) 1.0 (0-4) % Baso % (Auto) 0.2 (0-2) % Lymph # (Auto) 3.6 (1.2-4.9) X10*3/uL [place] # (Auto) 0.7 (0.1-1.2) X10*3/uL Eos # (Auto) 0.1 (0.0-0.4) X10*3/uL Baso # (Auto) 0.0 (0.0-0.2) X10*3/uL Abs Immat Gran (auto) 0.04 H (0.00-0.03) X10*3/uL Absolute Neuts (auto) 4.9 (2.0-8.3) x10*3/uL Absolute Nucleated RBC 0.000 (0.0-0.012) X10*3/uL Nucleated RBC % (auto) 0.0 (0.0-0.2) /100WBC PT (9.9-13.0) SEC INR (0.9-1.1) APTT (24.1-38.0) SEC VBG pH (7.32-7.43) VBG pCO2 mmHg VBG pO2 mmHg VBG HCO3 (22-26) mmol/L VBG O2 Saturation % VBG Base Excess mmol/L Sodium 127 L (135-145) mmol/L Potassium 5.8 H (3.3-5.1) mmol/L Chloride 90 L (96-108) mmol/L Carbon Dioxide 23 (22-29) mmol/L Anion Gap 20 (12-20) BUN 52 H (9-16) mg/dL Creatinine 3.03 H (0.5-1.4) mg/dL Estim Creat Clear Calc 29.6 Estimated GFR 17 POC Glucose (60-115) mg/dL Random Glucose 672 H* (60-115) mg/dL Lactic Acid 4.5 H* (0.5-2.0) mmol/L Lactic Acid F/U @ 2Hr (0.5-2.0) mmol/L Calcium 9.4 (8.4-10.2) mg/dL Magnesium 2.2 (1.6-2.6) mg/dL Total Bilirubin 0.6 (0.0-1.0) mg/dL Direct Bilirubin 0.3 (0.0-0.5) mg/dL AST 20 D (5-31) U/L ALT 17 (0-31) U/L Alkaline Phosphatase 110 D (39-117) U/L Total Creatine Kinase 764 H (26-140) U/L Troponin I High Sens (<3.5-17.0) ng/L Total Protein 7.4 (6.5-8.0) g/dL Albumin 3.6 (3.5-5.0) g/dL Lipase 42 (8-78) U/L Acetone, Qual Negative (Negative) COVID-19 (NUZHAT) (Negative) COVID-19 Clin Com 07/19/21 07/19/21 07/19/21 Range/Units 16:51 16:51 18:13 WBC (4.8-10.8) X10*3/uL RBC (4.20-5.50) X10*6/uL Hgb (12.0-16.0) g/dl Hct (37.0-47.0) % MCV (80.0-98.0) fL MCH (27.0-33.0) pg MCHC (31.0-35.0) g/dl RDW (11.0-16.0) % Plt Count (160-400) X10*3/uL MPV (9.4-12.3) fL Immature Gran % (Auto) (0.0-0.4) % Neut % (Auto) (45-73) % Lymph % (Auto) (20-40) % [place] % (Auto) (2-11) % Eos % (Auto) (0-4) % Baso % (Auto) (0-2) % Lymph # (Auto) (1.2-4.9) X10*3/uL [place] # (Auto) (0.1-1.2) X10*3/uL Eos # (Auto) (0.0-0.4) X10*3/uL Baso # (Auto) (0.0-0.2) X10*3/uL Abs Immat Gran (auto) (0.00-0.03) X10*3/uL Absolute Neuts (auto) (2.0-8.3) x10*3/uL Absolute Nucleated RBC (0.0-0.012) X10*3/uL Nucleated RBC % (auto) (0.0-0.2) /100WBC PT (9.9-13.0) SEC INR (0.9-1.1) APTT (24.1-38.0) SEC VBG pH 7.33 (7.32-7.43) VBG pCO2 36 mmHg VBG pO2 50 mmHg VBG HCO3 19 L (22-26) mmol/L VBG O2 Saturation 77.0 % VBG Base Excess -5.3 mmol/L Sodium (135-145) mmol/L Potassium (3.3-5.1) mmol/L Chloride (96-108) mmol/L Carbon Dioxide (22-29) mmol/L Anion Gap (12-20) BUN (9-16) mg/dL Creatinine (0.5-1.4) mg/dL Estim Creat Clear Calc Estimated GFR POC Glucose > 600 H* (60-115) mg/dL Random Glucose (60-115) mg/dL Lactic Acid (0.5-2.0) mmol/L Lactic Acid F/U @ 2Hr (0.5-2.0) mmol/L Calcium (8.4-10.2) mg/dL Magnesium (1.6-2.6) mg/dL Total Bilirubin (0.0-1.0) mg/dL Direct Bilirubin (0.0-0.5) mg/dL AST (5-31) U/L ALT (0-31) U/L Alkaline Phosphatase (39-117) U/L Total Creatine Kinase (26-140) U/L Troponin I High Sens < 3.5 (<3.5-17.0) ng/L Total Protein (6.5-8.0) g/dL Albumin (3.5-5.0) g/dL Lipase (8-78) U/L Acetone, Qual (Negative) COVID-19 (NUZHAT) (Negative) COVID-19 Clin Com 07/19/21 07/19/21 07/19/21 Range/Units 18:17 18:21 19:06 WBC (4.8-10.8) X10*3/uL RBC (4.20-5.50) X10*6/uL Hgb (12.0-16.0) g/dl Hct (37.0-47.0) % MCV (80.0-98.0) fL MCH (27.0-33.0) pg MCHC (31.0-35.0) g/dl RDW (11.0-16.0) % Plt Count (160-400) X10*3/uL MPV (9.4-12.3) fL Immature Gran % (Auto) (0.0-0.4) % Neut % (Auto) (45-73) % Lymph % (Auto) (20-40) % [place] % (Auto) (2-11) % Eos % (Auto) (0-4) % Baso % (Auto) (0-2) % Lymph # (Auto) (1.2-4.9) X10*3/uL [place] # (Auto) (0.1-1.2) X10*3/uL Eos # (Auto) (0.0-0.4) X10*3/uL Baso # (Auto) (0.0-0.2) X10*3/uL Abs Immat Gran (auto) (0.00-0.03) X10*3/uL Absolute Neuts (auto) (2.0-8.3) x10*3/uL Absolute Nucleated RBC (0.0-0.012) X10*3/uL Nucleated RBC % (auto) (0.0-0.2) /100WBC PT 11.9 (9.9-13.0) SEC INR 1.0 (0.9-1.1) APTT 34.6 (24.1-38.0) SEC VBG pH (7.32-7.43) VBG pCO2 mmHg VBG pO2 mmHg VBG HCO3 (22-26) mmol/L VBG O2 Saturation % VBG Base Excess mmol/L Sodium (135-145) mmol/L Potassium (3.3-5.1) mmol/L Chloride (96-108) mmol/L Carbon Dioxide (22-29) mmol/L Anion Gap (12-20) BUN (9-16) mg/dL Creatinine (0.5-1.4) mg/dL Estim Creat Clear Calc Estimated GFR POC Glucose 499 H* 472 H* (60-115) mg/dL Random Glucose (60-115) mg/dL Lactic Acid (0.5-2.0) mmol/L Lactic Acid F/U @ 2Hr (0.5-2.0) mmol/L Calcium (8.4-10.2) mg/dL Magnesium (1.6-2.6) mg/dL Total Bilirubin (0.0-1.0) mg/dL Direct Bilirubin (0.0-0.5) mg/dL AST (5-31) U/L ALT (0-31) U/L Alkaline Phosphatase (39-117) U/L Total Creatine Kinase (26-140) U/L Troponin I High Sens (<3.5-17.0) ng/L Total Protein (6.5-8.0) g/dL Albumin (3.5-5.0) g/dL Lipase (8-78) U/L Acetone, Qual (Negative) COVID-19 (NUZHAT) (Negative) COVID-19 Clin Com 07/19/21 Range/Units 19:20 WBC (4.8-10.8) X10*3/uL RBC (4.20-5.50) X10*6/uL Hgb (12.0-16.0) g/dl Hct (37.0-47.0) % MCV (80.0-98.0) fL MCH (27.0-33.0) pg MCHC (31.0-35.0) g/dl RDW (11.0-16.0) % Plt Count (160-400) X10*3/uL MPV (9.4-12.3) fL Immature Gran % (Auto) (0.0-0.4) % Neut % (Auto) (45-73) % Lymph % (Auto) (20-40) % [place] % (Auto) (2-11) % Eos % (Auto) (0-4) % Baso % (Auto) (0-2) % Lymph # (Auto) (1.2-4.9) X10*3/uL [place] # (Auto) (0.1-1.2) X10*3/uL Eos # (Auto) (0.0-0.4) X10*3/uL Baso # (Auto) (0.0-0.2) X10*3/uL Abs Immat Gran (auto) (0.00-0.03) X10*3/uL Absolute Neuts (auto) (2.0-8.3) x10*3/uL Absolute Nucleated RBC (0.0-0.012) X10*3/uL Nucleated RBC % (auto) (0.0-0.2) /100WBC PT (9.9-13.0) SEC INR (0.9-1.1) APTT (24.1-38.0) SEC VBG pH (7.32-7.43) VBG pCO2 mmHg VBG pO2 mmHg VBG HCO3 (22-26) mmol/L VBG O2 Saturation % VBG Base Excess mmol/L Sodium (135-145) mmol/L Potassium (3.3-5.1) mmol/L Chloride (96-108) mmol/L Carbon Dioxide (22-29) mmol/L Anion Gap (12-20) BUN (9-16) mg/dL Creatinine (0.5-1.4) mg/dL Estim Creat Clear Calc Estimated GFR POC Glucose (60-115) mg/dL Random Glucose (60-115) mg/dL Lactic Acid (0.5-2.0) mmol/L Lactic Acid F/U @ 2Hr 2.7 H* (0.5-2.0) mmol/L Calcium (8.4-10.2) mg/dL Magnesium (1.6-2.6) mg/dL Total Bilirubin (0.0-1.0) mg/dL Direct Bilirubin (0.0-0.5) mg/dL AST (5-31) U/L ALT (0-31) U/L Alkaline Phosphatase (39-117) U/L Total Creatine Kinase (26-140) U/L Troponin I High Sens (<3.5-17.0) ng/L Total Protein (6.5-8.0) g/dL Albumin (3.5-5.0) g/dL Lipase (8-78) U/L Acetone, Qual (Negative) COVID-19 (NUZHAT) (Negative) COVID-19 Clin Com ECG Data Attestation: I personally reviewed and interpreted this ECG as follows: Interpretation: Rate: 86 Rhythm: NSR [place]: mpr,a; Normal P waves. Normal CHAPITO. Normal QRS complex. ST T wave : no IGNACIO nonspecific qTC: normal prior studies: no acute ischemia The study has been interpreted contemporaneously by me. . Critical Care Time Critical Care Time Critical Care Time: Yes Total Critical Care Time: 45 Attestation: repeat IV insulin, IVF x 3L NS, repeat blood tests I attest to this time spent taking care of the patient Discharge Plan Discharge Clinical Impression: Acute hyperglycemia, Acidosis, lactic Acute renal failure Qualifiers: Acute renal failure type: unspecified Qualified Code(s): N17.9 - Acute kidney failure, unspecified Patient Disposition: Admitted As Inpatient
[2021-07-19 16:43] LABS: Glucose, Whole Blood > 600 mg/dL (60-115)
[2021-07-19 16:43] LABS: Glucose, Whole Blood > 600 mg/dL (60-115)
[2021-07-19] MEDS: Insulin Regular, Human 100 UNIT/ML 3 ML VIAL 10 UNIT IVPUSH (16:49)
[2021-07-19] MEDS: 0.9 % Sodium Chloride 1,000 ML 999 ML IV (16:50)
[2021-07-19] MEDS: 0.9 % Sodium Chloride 1,000 ML 999 ML IVCONT ×2 (16:50→19:51)
[2021-07-19 16:58] LABS: MANUAL DIFF FLAG NO
[2021-07-19 16:59] LABS: Venous Blood Gas Refer to POC result
[2021-07-19 17:00] LABS: Basophils Percent Auto 0.2 % (0-2); Eosinophils Absolute Auto 0.1 X10*3/uL (0.0-0.4); Hematocrit 29.2 % (37.0-47.0); Hemoglobin 9.3 g/dl (12.0-16.0); Imm Gran Abs Auto 0.04 X10*3/uL (0.00-0.03); Imm Gran Pct Auto 0.4 % (0.0-0.4); Lymphocytes Absolute Auto 3.6 X10*3/uL (1.2-4.9); Lymphocytes Percent Auto 38.9 % (20-40); Mean Corpuscular HGB Conc 31.8 g/dl (31.0-35.0); Mean Corpuscular Hemoglobin 29.5 pg (27.0-33.0); Mean Corpuscular Volume 92.7 fL (80.0-98.0); Mean Platelet Volume 11.2 fL (9.4-12.3); Monocytes Absolute Auto 0.7 X10*3/uL (0.1-1.2); Monocytes Percent Auto 7.2 % (2-11); Neutrophils Absolute Auto 4.9 x10*3/uL (2.0-8.3); Neutrophils Percent Auto 52.3 % (45-73); Platelet Count 234 X10*3/uL (160-400); Red Blood Count 3.15 X10*6/uL (4.20-5.50); Red Cell Distribution Width 13.4 % (11.0-16.0); VBG Base Excess -5.3 mmol/L; VBG HCO3 19 mmol/L (22-26); VBG pCO2 36 mmHg; VBG pH 7.33 (7.32-7.43); VBG pO2 50 mmHg; White Blood Count 9.3 X10*3/uL (4.8-10.8)
[2021-07-19 17:15] LABS: COVID-19 Test Negative (Negative); IDNOW Serial# 16C4AD1C
[2021-07-19 17:30] LABS: Troponin-I High Sensitivity < 3.5 ng/L (<3.5-17.0)
[2021-07-19 18:01] LABS: Alanine Aminotransferase 17 U/L (0-31); Albumin Level 3.6 g/dL (3.5-5.0); Alkaline Phosphatase 110 U/L (39-117); Anion Gap 20 (12-20); Aspartate Amino Transferase 20 U/L (5-31); Bilirubin Direct 0.3 mg/dL (0.0-0.5); Bilirubin Total 0.6 mg/dL (0.0-1.0); Blood Urea Nitrogen 52 mg/dL (9-16); Calcium 9.4 mg/dL (8.4-10.2); Carbon Dioxide 23 mmol/L (22-29); Chloride 90 mmol/L (96-108); Creatinine Clr Calc Pharmacy 29.6; Estimated Glomerular Filt Rate 17; Glucose Random 672 mg/dL (60-115); Lipase 42 U/L (8-78); Magnesium 2.2 mg/dL (1.6-2.6); Potassium 5.8 mmol/L (3.3-5.1); Sodium 127 mmol/L (135-145); Total Protein 7.4 g/dL (6.5-8.0)
[2021-07-19 18:02] LABS: Lactic Acid 4.5 mmol/L (0.5-2.0)
[2021-07-19 18:06] LABS: Acetone, serum QL Negative (Negative)
[2021-07-19 18:20] LABS: Glucose, Whole Blood > 600 mg/dL (60-115)
[2021-07-19 18:20] LABS: Glucose, Whole Blood 499 mg/dL (60-115)
--- NOTE | 2021-07-19 18:25 | PHA.MEDREC ---
Pharmacy Consult ? Medication Reconciliation Pharmacy has completed the medication reconciliation. No remarkable issues.
[2021-07-19] MEDS: Insulin Regular, Human 100 UNIT/ML 3 ML VIAL IVPUSH ×2 (18:29→19:47)
[2021-07-19 18:47] LABS: Partial Thromboplastin Time 34.6 SEC (24.1-38.0)
[2021-07-19 18:55] LABS: Reflex Lactate? Lactic Acid Added
[2021-07-19 18:57] LABS: Prothrombin Time 11.9 SEC (9.9-13.0)
[2021-07-19 19:10] LABS: Glucose, Whole Blood 472 mg/dL (60-115)
[2021-07-19 19:45] LABS: ~Lactic Acid-LAB USE ONLY 2.7 mmol/L (0.5-2.0)
--- NOTE | 2021-07-19 20:36 | PC.NURSE ---
PATIENT WAS ASSISTED TO BED SIDE COMMODE BY THIS PCT .
[2021-07-19 20:38] LABS: Appearance Urine CLEAR; Color Urine STRAW; Glucose Urine UA >=1000 MG/DL (NEG); Leukocyte Esterase Urine 1+ (NEG); Nitrite Urine NEG (NEG); PH 5.5 (5.0-8.0); Specific Gravity - Urine <= 1.005 (1.005-1.025); UACC Culture Trigger YES; Urine Blood NEG (NEG); Urine Ketones NEG (NEG); Urine Protein NEG (NEG-TRACE)
[2021-07-19 20:49] LABS: RBC Urine 0 /HPF (0); Squamous Epithelial Cell Urine 2+ /LPF
[2021-07-19 20:50] LABS: Bacteria Urine 1+ /LPF
[2021-07-19 20:54] LABS: Amphetamine Screen Urine Not Detected (Not Detect); Barbiturates, Urine Not Detected (Not Detect); Benzodiazepines Screen Urine POSITIVE (Not Detect); Cannabinoid Screen Urine Not Detected (Not Detect); Cocaine Screen Urine Not Detected (Not Detect); Fentanyl, urine Not Detected (Not Detect); Opiate Screen Urine Not Detected (Not Detect); Phencyclidine Screen Urine Not Detected (Not Detect)
[2021-07-19 20:58] LABS: Anion Gap 16 (12-20); Blood Urea Nitrogen 48 mg/dL (9-16); Calcium 9.2 mg/dL (8.4-10.2); Carbon Dioxide 25 mmol/L (22-29); Chloride 97 mmol/L (96-108); Creatinine Clr Calc Pharmacy 35.1; Estimated Glomerular Filt Rate 20; Glucose Random 425 mg/dL (60-115); Potassium 4.6 mmol/L (3.3-5.1); Sodium 133 mmol/L (135-145)
--- NOTE | 2021-07-19 20:59 | PC.NURSE ---
critical labs reported to ALFRED Ashford
--- NOTE | 2021-07-19 21:19 | PC.NURSE ---
Patient refusing merrill catheter, using bedside commode instead. aware.
[2021-07-19 21:23] LABS: Reflex Lactate? 2 Y
[2021-07-19 22:45] LABS: ~Lactic Acid-LAB USE ONLY 0.9 mmol/L (0.5-2.0)
[2021-07-19 23:04] LABS: Glucose, Whole Blood 330 mg/dL (60-115)
--- NOTE | 2021-07-19 23:40 | P.HPHOSP_ITS ---
History of Present Illness Date of Service: 07/19/21 Chief Complaint: Gen weakness; polyuria 45-year-old female with a past medical history of hypertension, hyperlipidemia, anxiety, depression, diabetes, GERD, obesity, insomnia, asthma presented to the hospital with a chief complaint of hyperglycemia. Patient reports that over the past 2 weeks has been feeling depressed; has not been complaint with her home insulin. Patient reports that she takes U 500 insulin 3 times a day; Mentions that she has been complaint with rest of her home medications. She has been not feeling well and generalized weakness; also has polyuria; presented to the ER few days ago has waited for 8 hours and left home; went to the urgent care couple days ago and was noted to have hyperglycemia; patient was recommended to follow-up with the PCP. Patient mentioned that over the past 2 days she tried to start taking her insulins again. But still not feeling well; and decided to come to the ER for further evaluation. Denies any fever chills cough. Denies any abdominal pain. Denies any chest pain or palpitations. Review of all other systems is negative except mentioned above ER course: Per ER team patient noted to have severe hypoglycemia with fingerstick glucose greater than 600; not in DKA; patient was given regular insulin IV push, IV fluids; also noted to have EMANUEL. Admitted to the hospital for further management. [facility], [facility] Medical History Anxiety Asthma Bipolar 1 disorder Dyslipidemia GERD (gastroesophageal reflux disease) HTN (hypertension) Insomnia Severe depression Uncontrolled diabetes mellitus Family History Father Hypertension Diabetes Mother No problems noted. Sister No problems noted. Son No problems noted. Son No problems noted. Daughter No problems noted. Surgical History History of Hx of tubal ligation S/P cholecystectomy Social History Housing: Apartment Alcohol intake: never Patient Tobacco Use Status: Former Tobacco user Quit Date: 09/13/2020 Years Smoked: quit 09/13/2020 e-Cigarette/Vaping Use: Never Used Second Hand Smoke Exposure: Yes Advance Directives: No Advance Directives Information Provided: No Patient : No service: No Current occupational status: disabled Meds Allergies Allergy/AdvReac Type Severity Reaction Status Date / Time azithromycin Allergy Unknown (states Verified 07/17/21 12:56 she can take a Zpack) otherwise, throat closes erythromycin base Allergy Unknown THROAT Verified 07/17/21 12:56 [ERYTHROMYCIN BASE] CLOSES UP lamotrigine [From LAMICTAL] Allergy Unknown ANAPHYLAXIS Verified 07/17/21 12:56 Erythromycin Allergy Unknown anaphylaxis Uncoded 07/17/21 12:56 Active Medications: Current Medications Acetaminophen (Acetaminophen 325 Mg Tablet) 650 mg PO Q6H PRN PRN Reason: Pain, Mild (Pain Scale 1-3) Heparin Sodium (Porcine) (Heparin Sodium,Porcine 5,000 Unit/Ml Vial) 5,000 unit SUBCUT Q8H [facility] Melatonin (Melatonin 3 Mg Tablet) 6 mg PO BEDTIME PRN PRN Reason: Insomnia Pharmacy Consult (Consult Rx Perform Med Rec) 1 each MISCELLANE ONCE PRN PRN Reason: Consult order Senna (Sennosides 8.6 Mg Tablet) 17.2 mg PO BEDTIME PRN PRN Reason: Constipation Sodium Chloride (0.9 % Sodium Chloride Flush 3 Ml Syringe) 3 ml IVFLUSH QSHIFT [facility] Home Medications Medication Instructions Recorded Confirmed Last Taken Type alprazolam 1 mg tablet 1 mg PO TID PRN 06/16/20 07/19/21 Unknown History benztropine 0.5 mg tablet 0.5 mg PO BID 06/16/20 07/19/21 07/19/21 History blood sugar diagnostic #10 ea 06/16/20 06/25/21 Unknown History buspirone 30 mg tablet 30 mg PO BID 06/16/20 07/19/21 07/19/21 History escitalopram oxalate 20 mg tablet 20 mg PO DAILY 06/16/20 07/19/21 07/19/21 H istory insulin regular hum U-500 conc 150 - 190 unit SUBCUT TID ml 06/16/20 07/19/21 07/19/21 History lancets 28 gauge #100 ea 06/16/20 06/25/21 Unknown History mirtazapine 15 mg tablet 15 mg PO BEDTIME 06/16/20 07/19/21 07/18/21 History pen needle, diabetic 31 gauge x #1200 ea 06/16/20 06/25/21 Unknown History 5/16 risperidone 3 mg tablet 3 mg PO BEDTIME 06/16/20 07/19/21 07/18/21 History atorvastatin 40 mg tablet 40 mg PO BEDTIME 07/19/21 07/19/21 07/18/21 History dulaglutide 1.5 mg/0.5 mL 1.5 mg SUBCUT BALLARD 07/19/21 07/19/21 07/11/21 History subcutaneous pen injector (Trulicity) ibuprofen 600 mg tablet 1 tab PO TID PRN 07/19/21 07/19/21 Unknown History multivitamin 1 tab PO DAILY 07/19/21 07/19/21 07/19/21 History Physical Exam Vital Signs and Narrative: Vital Signs: Last Vital Signs Temp 98.4 F 07/19/21 22:29 Pulse 76 07/19/21 22:29 Resp 16 07/19/21 22:29 BP 124/56 L 07/19/21 22:29 Pulse Ox 97 07/19/21 22:29 BMI result Body Mass Index 58.6 Gen: Appears be in no acute distress ; obese HEENT: NCAT, Moist mucosa. Pulmonary: Vesicular breath sounds, fair air entry CVS: Normal S1-S2 Abdomen: BS+, Soft, Nontender Extremities: Warm well perfused Neuro: Alert and awake. Results Labs CBC and Chem 7: 07/20/21 04:48 07/20/21 04:48 Labs: Laboratory Results - last 24 hr 07/19/21 07/19/21 07/19/21 16:25 16:31 16:35 MCV MCH MCHC RDW Plt Count MPV Immature Gran % (Auto) Neut % (Auto) Lymph % (Auto) [place] % (Auto) Eos % (Auto) Baso % (Auto) Lymph # (Auto) [place] # (Auto) Eos # (Auto) Baso # (Auto) Abs Immat Gran (auto) Absolute Neuts (auto) Absolute Nucleated RBC Nucleated RBC % (auto) PT INR APTT VBG pH VBG pCO2 VBG pO2 VBG HCO3 VBG O2 Saturation VBG Base Excess Anion Gap Estim Creat Clear Calc Estimated GFR POC Glucose > 600 H* > 600 H* Random Glucose Lactic Acid Lactic Acid F/U @ 2Hr Lactic Acid F/U @ 4Hr Calcium Magnesium Total Bilirubin Direct Bilirubin AST ALT Alkaline Phosphatase Total Creatine Kinase Troponin I High Sens Total Protein Albumin Lipase Urine Color Urine Appearance Urine pH Ur Specific [place] Urine Protein Urine Glucose (UA) Urine Ketones Urine Blood Urine Nitrite Ur Leukocyte Esterase Urine RBC Urine WBC Ur Squamous Epith Cells Urine Bacteria Urine Opiates Screen Urine Fentanyl Screen Ur Barbiturates Screen Ur Phencyclidine Scrn Ur Amphetamines Screen U Benzodiazepines Scrn Urine Cocaine Screen U Marijuana (THC) Screen Acetone, Qual COVID-19 (NUZHAT) Negative COVID-19 Clin Com See Note 07/19/21 07/19/21 07/19/21 16:51 16:51 16:51 MCV 92.7 MCH 29.5 MCHC 31.8 RDW 13.4 Plt Count 234 MPV 11.2 Immature Gran % (Auto) 0.4 Neut % (Auto) 52.3 Lymph % (Auto) 38.9 [place] % (Auto) 7.2 Eos % (Auto) 1.0 Baso % (Auto) 0.2 Lymph # (Auto) 3.6 [place] # (Auto) 0.7 Eos # (Auto) 0.1 Baso # (Auto) 0.0 Abs Immat Gran (auto) 0.04 H Absolute Neuts (auto) 4.9 Absolute Nucleated RBC 0.000 Nucleated RBC % (auto) 0.0 PT INR APTT VBG pH VBG pCO2 VBG pO2 VBG HCO3 VBG O2 Saturation VBG Base Excess Anion Gap 20 Estim Creat Clear Calc 29.6 Estimated GFR 17 POC Glucose Random Glucose 672 H* Lactic Acid 4.5 H* Lactic Acid F/U @ 2Hr Lactic Acid F/U @ 4Hr Calcium 9.4 Magnesium 2.2 Total Bilirubin 0.6 Direct Bilirubin 0.3 AST 20 D ALT 17 Alkaline Phosphatase 110 D Total Creatine Kinase 764 H Troponin I High Sens Total Protein 7.4 Albumin 3.6 Lipase 42 Urine Color Urine Appearance Urine pH Ur Specific [place] Urine Protein Urine Glucose (UA) Urine Ketones Urine Blood Urine Nitrite Ur Leukocyte Esterase Urine RBC Urine WBC Ur Squamous Epith Cells Urine Bacteria Urine Opiates Screen Urine Fentanyl Screen Ur Barbiturates Screen Ur Phencyclidine Scrn Ur Amphetamines Screen U Benzodiazepines Scrn Urine Cocaine Screen U Marijuana (THC) Screen Acetone, Qual Negative COVID-19 (NUZHAT) COVID-19 Clin Com 07/19/21 07/19/21 07/19/21 16:51 16:51 18:13 MCV MCH MCHC RDW Plt Count MPV Immature Gran % (Auto) Neut % (Auto) Lymph % (Auto) [place] % (Auto) Eos % (Auto) Baso % (Auto) Lymph # (Auto) [place] # (Auto) Eos # (Auto) Baso # (Auto) Abs Immat Gran (auto) Absolute Neuts (auto) Absolute Nucleated RBC Nucleated RBC % (auto) PT INR APTT VBG pH 7.33 VBG pCO2 36 VBG pO2 50 VBG HCO3 19 L VBG O2 Saturation 77.0 VBG Base Excess -5.3 Anion Gap Estim Creat Clear Calc Estimated GFR POC Glucose > 600 H* Random Glucose Lactic Acid Lactic Acid F/U @ 2Hr Lactic Acid F/U @ 4Hr Calcium Magnesium Total Bilirubin Direct Bilirubin AST ALT Alkaline Phosphatase Total Creatine Kinase Troponin I High Sens < 3.5 Total Protein Albumin Lipase Urine Color Urine Appearance Urine pH Ur Specific [place] Urine Protein Urine Glucose (UA) Urine Ketones Urine Blood Urine Nitrite Ur Leukocyte Esterase Urine RBC Urine WBC Ur Squamous Epith Cells Urine Bacteria Urine Opiates Screen Urine Fentanyl Screen Ur Barbiturates Screen Ur Phencyclidine Scrn Ur Amphetamines Screen U Benzodiazepines Scrn Urine Cocaine Screen U Marijuana (THC) Screen Acetone, Qual COVID-19 (NUZHAT) COVID-19 Clin Com 07/19/21 07/19/21 07/19/21 18:17 18:21 19:06 MCV MCH MCHC RDW Plt Count MPV Immature Gran % (Auto) Neut % (Auto) Lymph % (Auto) [place] % (Auto) Eos % (Auto) Baso % (Auto) Lymph # (Auto) [place] # (Auto) Eos # (Auto) Baso # (Auto) Abs Immat Gran (auto) Absolute Neuts (auto) Absolute Nucleated RBC Nucleated RBC % (auto) PT 11.9 INR 1.0 APTT 34.6 VBG pH VBG pCO2 VBG pO2 VBG HCO3 VBG O2 Saturation VBG Base Excess Anion Gap Estim Creat Clear Calc Estimated GFR POC Glucose 499 H* 472 H* Random Glucose Lactic Acid Lactic Acid F/U @ 2Hr Lactic Acid F/U @ 4Hr Calcium Magnesium Total Bilirubin Direct Bilirubin AST ALT Alkaline Phosphatase Total Creatine Kinase Troponin I High Sens Total Protein Albumin Lipase Urine Color Urine Appearance Urine pH Ur Specific [place] Urine Protein Urine Glucose (UA) Urine Ketones Urine Blood Urine Nitrite Ur Leukocyte Esterase Urine RBC Urine WBC Ur Squamous Epith Cells Urine Bacteria Urine Opiates Screen Urine Fentanyl Screen Ur Barbiturates Screen Ur Phencyclidine Scrn Ur Amphetamines Screen U Benzodiazepines Scrn Urine Cocaine Screen U Marijuana (THC) Screen Acetone, Qual COVID-19 (NUZHAT) COVID-19 [employer] 07/19/21 07/19/21 07/19/21 19:20 20:32 20:32 MCV MCH MCHC RDW Plt Count MPV Immature Gran % (Auto) Neut % (Auto) Lymph % (Auto) [place] % (Auto) Eos % (Auto) Baso % (Auto) Lymph # (Auto) [place] # (Auto) Eos # (Auto) Baso # (Auto) Abs Immat Gran (auto) Absolute Neuts (auto) Absolute Nucleated RBC Nucleated RBC % (auto) PT INR APTT VBG pH VBG pCO2 VBG pO2 VBG HCO3 VBG O2 Saturation VBG Base Excess Anion Gap Estim Creat Clear Calc Estimated GFR POC Glucose Random Glucose Lactic Acid Lactic Acid F/U @ 2Hr 2.7 H* Lactic Acid F/U @ 4Hr Calcium Magnesium Total Bilirubin Direct Bilirubin AST ALT Alkaline Phosphatase Total Creatine Kinase Troponin I High Sens Total Protein Albumin Lipase Urine Color STRAW Urine Appearance CLEAR Urine pH 5.5 Ur Specific [place] <= 1.005 Urine Protein NEG Urine Glucose (UA) >=1000 H Urine Ketones NEG Urine Blood NEG Urine Nitrite NEG Ur Leukocyte Esterase 1+ H Urine RBC 0 Urine WBC 15-29 H Ur Squamous Epith Cells 2+ Urine Bacteria 1+ Urine Opiates Screen Not Detected Urine Fentanyl Screen Not Detected Ur Barbiturates Screen Not Detected Ur Phencyclidine Scrn Not Detected Ur Amphetamines Screen Not Detected U Benzodiazepines Scrn POSITIVE H Urine Cocaine Screen Not Detected U Marijuana (THC) Screen Not Detected Acetone, Qual COVID-19 (NUZHAT) COVID-[employer] 07/19/21 07/19/21 07/19/21 20:32 22:27 22:59 MCV MCH MCHC RDW Plt Count MPV Immature Gran % (Auto) Neut % (Auto) Lymph % (Auto) [place] % (Auto) Eos % (Auto) Baso % (Auto) Lymph # (Auto) [place] # (Auto) Eos # (Auto) Baso # (Auto) Abs Immat Gran (auto) Absolute Neuts (auto) Absolute Nucleated RBC Nucleated RBC % (auto) PT INR APTT VBG pH VBG pCO2 VBG pO2 VBG HCO3 VBG O2 Saturation VBG Base Excess Anion Gap 16 Estim Creat Clear Calc 35.1 Estimated GFR 20 POC Glucose 330 H Random Glucose 425 H* Lactic Acid Lactic Acid F/U @ 2Hr Lactic Acid F/U @ 4Hr 0.9 Calcium 9.2 Magnesium Total Bilirubin Direct Bilirubin AST ALT Alkaline Phosphatase Total Creatine Kinase Troponin I High Sens Total Protein Albumin Lipase Urine Color Urine Appearance Urine pH Ur Specific [place] Urine Protein Urine Glucose (UA) Urine Ketones Urine Blood Urine Nitrite Ur Leukocyte Esterase Urine RBC Urine WBC Ur Squamous Epith Cells Urine Bacteria Urine Opiates Screen Urine Fentanyl Screen Ur Barbiturates Screen Ur Phencyclidine Scrn Ur Amphetamines Screen U Benzodiazepines Scrn Urine Cocaine Screen U Marijuana (THC) Screen Acetone, Qual COVID-19 (NUZHAT) COVID-19 Clin Com Imaging Radiologist's Impressions: Impressions Renal Ultrasound 07/19/21 17:02 IMPRESSION: Unremarkable renal ultrasound. Assessment and Plan (1) Acute hyperglycemia: Status: Inactive (2) Acute renal failure: Qualifiers: Acute renal failure type: unspecified Qualified Code(s): N17.9 - Acute kidney failure, unspecified Status: Inactive Plan 45-year-old female with a past medical history of hypertension, hyperlipidemia, anxiety, depression, diabetes, GERD, obesity, insomnia, asthma presented to the hospital with a chief complaint of hyperglycemia. Diabetes/hyperglycemia: Not in DKA Patient received 3 L of IV fluids; regular insulin IV push 20 units-fingerstick glucose improving. Will give the patient on Lantus 40 units and insulin sliding scale Hold home insulin regimen for now. Monitor fingerstick glucose and adjust as needed. EMANUEL: Likely prerenal. Avoid nephrotoxins. Hold home ILSA inhibitors and Lasix. Baseline creatinine 0.8. Creatinine on presentation was 3.3. Improved to 2.5 after 3 L of IV fluids. Gentle IV fluids Nephrology consult Renal ultrasound-unremarkable. Hyponatremia: Likely pseudo hyponatremia in setting of hyperglycemia. Improving with improvement in glucose levels. For All other chronic conditions, home medications will be continued history of anxiety / depression: Continue home escitalopram, mirtazapine, r isperidone, alprazolam. DVT prophylaxis: Subcu heparin Code status: Full code Quality Stroke Does the patient have a stroke diagnosis?: No VTE Prior VTE?: No VTE Risk Level:: Medical - moderate - high VTE Device Contraindication: Treatment Not Indicated VTE Drug Contraindication: N/A - Med Ordered
[2021-07-20] VITALS (8 sets, daily range): BP systolic 103–126; BP diastolic 42–63; PULSE 75–89; RESP 16–20; TEMP 35.9–36.8; O2SAT 95–99
[2021-07-20] MEDS: Heparin Sodium,Porcine 5,000 UNIT/ML VIAL 5000 UNIT SUBCUT ×3 (00:48→18:40)
[2021-07-20] MEDS: ALPRAZolam 0.5 MG TABLET 1 MG PO (00:49)
[2021-07-20] MEDS: 0.9 % Sodium Chloride Flush 3 ML SYRINGE IVFLUSH ×3 (00:54→18:41)
[2021-07-20 01:04] LABS: Glucose, Whole Blood 328 mg/dL (60-115)
[2021-07-20 02:59] LABS: Glucose, Whole Blood 341 mg/dL (60-115)
[2021-07-20 05:05] LABS: Glucose, Whole Blood 359 mg/dL (60-115)
[2021-07-20 05:06] LABS: MANUAL DIFF FLAG NO
[2021-07-20 05:07] LABS: Basophils Percent Auto 0.4 % (0-2); Eosinophils Absolute Auto 0.1 X10*3/uL (0.0-0.4); Eosinophils Percent Auto 1.7 % (0-4); Hematocrit 28.8 % (37.0-47.0); Hemoglobin 9.3 g/dl (12.0-16.0); Imm Gran Abs Auto 0.05 X10*3/uL (0.00-0.03); Imm Gran Pct Auto 0.6 % (0.0-0.4); Lymphocytes Absolute Auto 4.1 X10*3/uL (1.2-4.9); Lymphocytes Percent Auto 51.1 % (20-40); Mean Corpuscular HGB Conc 32.3 g/dl (31.0-35.0); Mean Corpuscular Hemoglobin 29.7 pg (27.0-33.0); Mean Platelet Volume 11.2 fL (9.4-12.3); Monocytes Absolute Auto 0.5 X10*3/uL (0.1-1.2); Monocytes Percent Auto 5.9 % (2-11); Neutrophils Absolute Auto 3.2 x10*3/uL (2.0-8.3); Neutrophils Percent Auto 40.3 % (45-73); Platelet Count 242 X10*3/uL (160-400); Red Blood Count 3.13 X10*6/uL (4.20-5.50); Red Cell Distribution Width 13.3 % (11.0-16.0)
[2021-07-20 05:32] LABS: Magnesium 2.1 mg/dL (1.6-2.6)
[2021-07-20 05:33] LABS: Anion Gap 15 (12-20); Blood Urea Nitrogen 41 mg/dL (9-16); Calcium 9.3 mg/dL (8.4-10.2); Carbon Dioxide 22 mmol/L (22-29); Chloride 101 mmol/L (96-108); Creatinine Clr Calc Pharmacy 47.4; Estimated Glomerular Filt Rate 29; Glucose Random 375 mg/dL (60-115); Potassium 5.2 mmol/L (3.3-5.1); Sodium 133 mmol/L (135-145)
[2021-07-20] MEDS: Insulin Lispro 100 UNIT/ML 3 ML VIAL SUBCUT ×6 (05:59→21:14)
--- NOTE | 2021-07-20 06:00 | PC.NURSE ---
POC 375 and then 359 this am, Dr Hurtado notified and verbal order to given morning dose of sliding scale insulin now. 10 units given per MD order, see MAR. Patient resting, NAD noted. Will monitor closely.
[2021-07-20 07:09] LABS: Glucose, Whole Blood 303 mg/dL (60-115)
[2021-07-20] MEDS: busPIRone HCl 10 MG TABLET 30 MG PO ×2 (08:32→21:17)
[2021-07-20] MEDS: Gabapentin 600 MG TABLET 300 MG PO ×2 (08:33→21:17)
[2021-07-20] MEDS: Cholecalciferol (Vitamin D3) 25 MCG TABLET 50 MCG PO (08:33)
[2021-07-20] MEDS: Omeprazole 20 MG CAPSULE.DR PO ×2 (08:33→21:18)
[2021-07-20] MEDS: Multivitamin TABLET 1 TAB PO (08:33)
[2021-07-20] MEDS: Metoprolol Succinate ER 12.5 MG HALFTAB.ER.24H PO (08:34)
[2021-07-20] MEDS: Escitalopram Oxalate 20 MG TABLET PO (08:34)
[2021-07-20] MEDS: Benztropine Mesylate 0.5 MG TABLET PO ×2 (08:34→21:17)
--- NOTE | 2021-07-20 10:46 | MHC.CM.PN ---
Met with patient in regards to discharge planning. Patient lives with her , children and mother in law. Patient uses a cane for mobility and had no services prior to coming to the hospital. PCP verified. Patient received 3 Pfizer vaccines. Patient denies having a HCP. Information provided. Patient not interested in completing one at this time. IMM explained and signed. Patient's will transport her home when medically stable. Noticed patient has significant tremor in right hand. Patient states this is new. May need PT/OT eval for home safety prior to d/c. Continue to monitor for d/c needs.
[2021-07-20 11:32] LABS: Glucose, Whole Blood 306 mg/dL (60-115)
--- NOTE | 2021-07-20 12:02 | P.PNIM_ITS ---
Subjective Subjective Date of Service: 07/21/21 Interval History: f ollow-up on hyperglycemia/ uncontrolled diabetes, EMANUEL. Interval history: She is feeling better today. , she tells me that she has not been taking her diabetes medication as recommended Or does not take it at all Review of Systems no polyuria or polydipsia, no fever or chill, no shortness of breath no c Physical Exam Vital Signs: Vital Signs: Last Vital Signs Temp 97.7 F 07/20/21 10:47 Pulse 81 07/20/21 10:47 Resp 18 07/20/21 10:47 BP 104/50 L 07/20/21 10:47 Pulse Ox 96 07/20/21 10:47 BMI result Body Mass Index 58.6 Const: Other: General: AO X 3, no acute distress, obesse Resp: CTA bilateral CVS: S1,S2,RRR GI: +BS, NT, no distention Skin: No rash Neuro: motor grossly intact Psych: appropriate affect Objective Data Active Medications Acetaminophen (Acetaminophen 325 Mg Tablet) 650 mg PO Q6H PRN PRN Reason: Pain, Mild (Pain Scale 1-3) Alprazolam (Alprazolam 0.5 Mg Tablet) 1 mg PO TID PRN PRN Reason: Anxiety Last Admin: 07/20/21 00:49 Dose: 1 mg Documented by: JATIN Atorvastatin Calcium (Atorvastatin Calcium 40 Mg Tablet) 40 mg PO BEDTIME [facility] Benztropine Mesylate (Benztropine Mesylate 0.5 Mg Tablet) 0.5 mg PO BID [facility] Last Admin: 07/20/21 08:34 Dose: 0.5 mg Documented by: HILDA Buspirone HCl (Buspirone Hcl 10 Mg Tablet) 30 mg PO BID [facility] Last Admin: 07/20/21 08:32 Dose: 30 mg Documented by: HILDA Dextrose (Dextrose 50 % 25 Gm/50 Ml Syringe) 25 gm IVPUSH Q15M PRN; Protocol PRN Reason: per Hypoglycemia Standing Ord. Escitalopram Oxalate (Escitalopram Oxalate 20 Mg Tablet) 20 mg PO DAILY [facility] Last Admin: 07/20/21 08:34 Dose: 20 mg Documented by: HILDA Gabapentin (Gabapentin 600 Mg Tablet) 300 mg PO BID [facility] Last Admin: 07/20/21 08:33 Dose: 300 mg Documented by: HILDA Glucose (Glucose Gel 15 Gm Gel..Gram.) 15 gm PO Q15M PRN; Protocol PRN Reason: per Hypoglycemia Standing Ord. Heparin Sodium (Porcine) (Heparin Sodium,Porcine 5,000 Unit/Ml Vial) 5,000 unit SUBCUT Q8H [facility] Last Admin: 07/20/21 08:32 Dose: 5,000 unit Documented by: HILDA Insulin Glargine (Insulin Glargine,Hum.Rec.Anlog 100 Unit/Ml 10 Ml Vial) 40 unit SUBCUT BEDTIME [facility] Insulin Human Lispro (Insulin Lispro 100 Unit/Ml 3 Ml Vial) 0 unit SUBCUT QIDACHS [facility]; Protocol Last Admin: 07/20/21 05:59 Dose: 10 unit Documented by: JATIN Comments: Given per Dr Hurtado Melatonin (Melatonin 3 Mg Tablet) 6 mg PO BEDTIME PRN PRN Reason: Insomnia Metoprolol Succinate (Metoprolol Succinate Er 12.5 Mg Halftab.Er.24h) 12.5 mg PO DAILY [facility]; Protocol Last Admin: 07/20/21 08:34 Dose: 12.5 mg Documented by: HILDA Mirtazapine (Mirtazapine 15 Mg Tablet) 15 mg PO BEDTIME [facility] Multivitamins/Vitamin C (Multivitamin Tablet) 1 tab PO DAILY [facility] Last Admin: 07/20/21 08:33 Dose: 1 tab Documented by: HILDA Omeprazole (Omeprazole 20 Mg Capsule.) 20 mg PO BID [facility] Last Admin: 07/20/21 08:33 Dose: 20 mg Documented by: HILDA Pharmacy Consult (Consult Rx Perform Med Rec) 1 each MISCELLANE ONCE PRN PRN Reason: Consult order Risperidone (Risperidone 3 Mg Tablet) 3 mg PO BEDTIME [facility] Senna (Sennosides 8.6 Mg Tablet) 17.2 mg PO BEDTIME PRN PRN Reason: Constipation Sodium Chloride (0.9 % Sodium Chloride Flush 3 Ml Syringe) 3 ml IVFLUSH QSHIFT [facility] Last Admin: 07/20/21 09:22 Dose: 3 ml Documented by: HILDA Vitamin D (Cholecalciferol (Vitamin D3) 25 Mcg Tablet) 50 mcg PO DAILY [facility] Last Admin: 07/20/21 08:33 Dose: 50 mcg Documented by: HILDA Labs CBC & Chem 7: 07/20/21 04:48 07/21/21 07:26 Labs: Laboratory Results - last 24 hr 07/19/21 07/19/21 07/19/21 16:25 16:31 16:35 MCV MCH MCHC RDW Plt Count MPV Immature Gran % (Auto) Neut % (Auto) Lymph % (Auto) [place] % (Auto) Eos % (Auto) Baso % (Auto) Lymph # (Auto) [place] # (Auto) Eos # (Auto) Baso # (Auto) Abs Immat Gran (auto) Absolute Neuts (auto) Absolute Nucleated RBC Nucleated RBC % (auto) PT INR APTT VBG pH VBG pCO2 VBG pO2 VBG HCO3 VBG O2 Saturation VBG Base Excess Anion Gap Estim Creat Clear Calc Estimated GFR POC Glucose > 600 H* > 600 H* Random Glucose Lactic Acid Lactic Acid F/U @ 2Hr Lactic Acid F/U @ 4Hr Calcium Magnesium Total Bilirubin Direct Bilirubin AST ALT Alkaline Phosphatase Total Creatine Kinase Troponin I High Sens Total Protein Albumin Lipase Urine Color Urine Appearance Urine pH Ur Specific [place] Urine Protein Urine Glucose (UA) Urine Ketones Urine Blood Urine Nitrite Ur Leukocyte Esterase Urine RBC Urine WBC Ur Squamous Epith Cells Urine Bacteria Urine Opiates Screen Urine Fentanyl Screen Ur Barbiturates Screen Ur Phencyclidine Scrn Ur Amphetamines Screen U Benzodiazepines Scrn Urine Cocaine Screen U Marijuana (THC) Screen Acetone, Qual COVID-19 (NUZHAT) Negative COVID-19 Clin Com See Note 07/19/21 07/19/21 07/19/21 16:51 16:51 16:51 MCV 92.7 MCH 29.5 MCHC 31.8 RDW 13.4 Plt Count 234 MPV 11.2 Immature Gran % (Auto) 0.4 Neut % (Auto) 52.3 Lymph % (Auto) 38.9 [place] % (Auto) 7.2 Eos % (Auto) 1.0 Baso % (Auto) 0.2 Lymph # (Auto) 3.6 [place] # (Auto) 0.7 Eos # (Auto) 0.1 Baso # (Auto) 0.0 Abs Immat Gran (auto) 0.04 H Absolute Neuts (auto) 4.9 Absolute Nucleated RBC 0.000 Nucleated RBC % (auto) 0.0 PT INR APTT VBG pH VBG pCO2 VBG pO2 VBG HCO3 VBG O2 Saturation VBG Base Excess Anion Gap 20 Estim Creat Clear Calc 29.6 Estimated GFR 17 POC Glucose Random Glucose 672 H* Lactic Acid 4.5 H* Lactic Acid F/U @ 2Hr Lactic Acid F/U @ 4Hr Calcium 9.4 Magnesium 2.2 Total Bilirubin 0.6 Direct Bilirubin 0.3 AST 20 D ALT 17 Alkaline Phosphatase 110 D Total Creatine Kinase 764 H Troponin I High Sens Total Protein 7.4 Albumin 3.6 Lipase 42 Urine Color Urine Appearance Urine pH Ur Specific [place] Urine Protein Urine Glucose (UA) Urine Ketones Urine Blood Urine Nitrite Ur Leukocyte Esterase Urine RBC Urine WBC Ur Squamous Epith Cells Urine Bacteria Urine Opiates Screen Urine Fentanyl Screen Ur Barbiturates Screen Ur Phencyclidine Scrn Ur Amphetamines Screen U Benzodiazepines Scrn Urine Cocaine Screen U Marijuana (THC) Screen Acetone, Qual Negative COVID-19 (NUZHAT) COVIDOriense 07/19/21 07/19/21 07/19/21 16:51 16:51 18:13 MCV MCH MCHC RDW Plt Count MPV Immature Gran % (Auto) Neut % (Auto) Lymph % (Auto) [place] % (Auto) Eos % (Auto) Baso % (Auto) Lymph # (Auto) [place] # (Auto) Eos # (Auto) Baso # (Auto) Abs Immat Gran (auto) Absolute Neuts (auto) Absolute Nucleated RBC Nucleated RBC % (auto) PT INR APTT VBG pH 7.33 VBG pCO2 36 VBG pO2 50 VBG HCO3 19 L VBG O2 Saturation 77.0 VBG Base Excess -5.3 Anion Gap Estim Creat Clear Calc Estimated GFR POC Glucose > 600 H* Random Glucose Lactic Acid Lactic Acid F/U @ 2Hr Lactic Acid F/U @ 4Hr Calcium Magnesium Total Bilirubin Direct Bilirubin AST ALT Alkaline Phosphatase Total Creatine Kinase Troponin I High Sens < 3.5 Total Protein Albumin Lipase Urine Color Urine Appearance Urine pH Ur Specific [place] Urine Protein Urine Glucose (UA) Urine Ketones Urine Blood Urine Nitrite Ur Leukocyte Esterase Urine RBC Urine WBC Ur Squamous Epith Cells Urine Bacteria Urine Opiates Screen Urine Fentanyl Screen Ur Barbiturates Screen Ur Phencyclidine Scrn Ur Amphetamines Screen U Benzodiazepines Scrn Urine Cocaine Screen U Marijuana (THC) Screen Acetone, Qual COVID-19 (NUZHAT) COVIDOriense 07/19/21 07/19/21 07/19/21 18:17 18:21 19:06 MCV MCH MCHC RDW Plt Count MPV Immature Gran % (Auto) Neut % (Auto) Lymph % (Auto) [place] % (Auto) Eos % (Auto) Baso % (Auto) Lymph # (Auto) [place] # (Auto) Eos # (Auto) Baso # (Auto) Abs Immat Gran (auto) Absolute Neuts (auto) Absolute Nucleated RBC Nucleated RBC % (auto) PT 11.9 INR 1.0 APTT 34.6 VBG pH VBG pCO2 VBG pO2 VBG HCO3 VBG O2 Saturation VBG Base Excess Anion Gap Estim Creat Clear Calc Estimated GFR POC Glucose 499 H* 472 H* Random Glucose Lactic Acid Lactic Acid F/U @ 2Hr Lactic Acid F/U @ 4Hr Calcium Magnesium Total Bilirubin Direct Bilirubin AST ALT Alkaline Phosphatase Total Creatine Kinase Troponin I High Sens Total Protein Albumin Lipase Urine Color Urine Appearance Urine pH Ur Specific [place] Urine Protein Urine Glucose (UA) Urine Ketones Urine Blood Urine Nitrite Ur Leukocyte Esterase Urine RBC Urine WBC Ur Squamous Epith Cells Urine Bacteria Urine Opiates Screen Urine Fentanyl Screen Ur Barbiturates Screen Ur Phencyclidine Scrn Ur Amphetamines Screen U Benzodiazepines Scrn Urine Cocaine Screen U Marijuana (THC) Screen Acetone, Qual COVID-19 (NUZHAT) COVID-19 Clin Com 07/19/21 07/19/21 07/19/21 19:20 20:32 20:32 MCV MCH MCHC RDW Plt Count MPV Immature Gran % (Auto) Neut % (Auto) Lymph % (Auto) [place] % (Auto) Eos % (Auto) Baso % (Auto) Lymph # (Auto) [place] # (Auto) Eos # (Auto) Baso # (Auto) Abs Immat Gran (auto) Absolute Neuts (auto) Absolute Nucleated RBC Nucleated RBC % (auto) PT INR APTT VBG pH VBG pCO2 VBG pO2 VBG HCO3 VBG O2 Saturation VBG Base Excess Anion Gap Estim Creat Clear Calc Estimated GFR POC Glucose Random Glucose Lactic Acid Lactic Acid F/U @ 2Hr 2.7 H* Lactic Acid F/U @ 4Hr Calcium Magnesium Total Bilirubin Direct Bilirubin AST ALT Alkaline Phosphatase Total Creatine Kinase Troponin I High Sens Total Protein Albumin Lipase Urine Color STRAW Urine Appearance CLEAR Urine pH 5.5 Ur Specific [place] <= 1.005 Urine Protein NEG Urine Glucose (UA) >=1000 H Urine Ketones NEG Urine Blood NEG Urine Nitrite NEG Ur Leukocyte Esterase 1+ H Urine RBC 0 Urine WBC 15-29 H Ur Squamous Epith Cells 2+ Urine Bacteria 1+ Urine Opiates Screen Not Detected Urine Fentanyl Screen Not Detected Ur Barbiturates Screen Not Detected Ur Phencyclidine Scrn Not Detected Ur Amphetamines Screen Not Detected U Benzodiazepines Scrn POSITIVE H Urine Cocaine Screen Not Detected U Marijuana (THC) Screen Not Detected Acetone, Qual COVID-19 (NUZHAT) COVID-19 [facility] 07/19/21 07/19/21 07/19/21 20:32 22:27 22:59 MCV MCH MCHC RDW Plt Count MPV Immature Gran % (Auto) Neut % (Auto) Lymph % (Auto) [place] % (Auto) Eos % (Auto) Baso % (Auto) Lymph # (Auto) [place] # (Auto) Eos # (Auto) Baso # (Auto) Abs Immat Gran (auto) Absolute Neuts (auto) Absolute Nucleated RBC Nucleated RBC % (auto) PT INR APTT VBG pH VBG pCO2 VBG pO2 VBG HCO3 VBG O2 Saturation VBG Base Excess Anion Gap 16 Estim Creat Clear Calc 35.1 Estimated GFR 20 POC Glucose 330 H Random Glucose 425 H* Lactic Acid Lactic Acid F/U @ 2Hr Lactic Acid F/U @ 4Hr 0.9 Calcium 9.2 Magnesium Total Bilirubin Direct Bilirubin AST ALT Alkaline Phosphatase Total Creatine Kinase Troponin I High Sens Total Protein Albumin Lipase Urine Color Urine Appearance Urine pH Ur Specific [place] Urine Protein Urine Glucose (UA) Urine Ketones Urine Blood Urine Nitrite Ur Leukocyte Esterase Urine RBC Urine WBC Ur Squamous Epith Cells Urine Bacteria Urine Opiates Screen Urine Fentanyl Screen Ur Barbiturates Screen Ur Phencyclidine Scrn Ur Amphetamines Screen U Benzodiazepines Scrn Urine Cocaine Screen U Marijuana (THC) Screen Acetone, Qual COVID-19 (NUZHAT) COVID-19 [facility] 07/20/21 07/20/21 07/20/21 01:00 02:55 04:48 MCV 92.0 MCH 29.7 MCHC 32.3 RDW 13.3 Plt Count 242 MPV 11.2 Immature Gran % (Auto) 0.6 H Neut % (Auto) 40.3 L Lymph % (Auto) 51.1 H [place] % (Auto) 5.9 Eos % (Auto) 1.7 Baso % (Auto) 0.4 Lymph # (Auto) 4.1 [place] # (Auto) 0.5 Eos # (Auto) 0.1 Baso # (Auto) 0.0 Abs Immat Gran (auto) 0.05 H Absolute Neuts (auto) 3.2 Absolute Nucleated RBC 0.000 Nucleated RBC % (auto) 0.0 PT INR APTT VBG pH VBG pCO2 VBG pO2 VBG HCO3 VBG O2 Saturation VBG Base Excess Anion Gap Estim Creat Clear Calc Estimated GFR POC Glucose 328 H 341 H Random Glucose Lactic Acid Lactic Acid F/U @ 2Hr Lactic Acid F/U @ 4Hr Calcium Magnesium Total Bilirubin Direct Bilirubin AST ALT Alkaline Phosphatase Total Creatine Kinase Troponin I High Sens Total Protein Albumin Lipase Urine Color Urine Appearance Urine pH Ur Specific [place] Urine Protein Urine Glucose (UA) Urine Ketones Urine Blood Urine Nitrite Ur Leukocyte Esterase Urine RBC Urine WBC Ur Squamous Epith Cells Urine Bacteria Urine Opiates Screen Urine Fentanyl Screen Ur Barbiturates Screen Ur Phencyclidine Scrn Ur Amphetamines Screen U Benzodiazepines Scrn Urine Cocaine Screen U Marijuana (THC) Screen Acetone, Qual COVID-19 (NUZHAT) COVID-19 Clin Com 07/20/21 07/20/21 07/20/21 04:48 04:48 05:00 MCV MCH MCHC RDW Plt Count MPV Immature Gran % (Auto) Neut % (Auto) Lymph % (Auto) [place] % (Auto) Eos % (Auto) Baso % (Auto) Lymph # (Auto) [place] # (Auto) Eos # (Auto) Baso # (Auto) Abs Immat Gran (auto) Absolute Neuts (auto) Absolute Nucleated RBC Nucleated RBC % (auto) PT INR APTT VBG pH VBG pCO2 VBG pO2 VBG HCO3 VBG O2 Saturation VBG Base Excess Anion Gap 15 Estim Creat Clear Calc 47.4 Estimated GFR 29 POC Glucose 359 H* Random Glucose 375 H* Lactic Acid Lactic Acid F/U @ 2Hr Lactic Acid F/U @ 4Hr Calcium 9.3 Magnesium 2.1 Total Bilirubin Direct Bilirubin AST ALT Alkaline Phosphatase Total Creatine Kinase Troponin I High Sens Total Protein Albumin Lipase Urine Color Urine Appearance Urine pH Ur Specific [place] Urine Protein Urine Glucose (UA) Urine Ketones Urine Blood Urine Nitrite Ur Leukocyte Esterase Urine RBC Urine WBC Ur Squamous Epith Cells Urine Bacteria Urine Opiates Screen Urine Fentanyl Screen Ur Barbiturates Screen Ur Phencyclidine Scrn Ur Amphetamines Screen U Benzodiazepines Scrn Urine Cocaine Screen U Marijuana (THC) Screen Acetone, Qual COVID-19 (NUZHAT) COVID-19 Spotzer 07/20/21 07/20/21 06:55 11:24 MCV MCH MCHC RDW Plt Count MPV Immature Gran % (Auto) Neut % (Auto) Lymph % (Auto) [place] % (Auto) Eos % (Auto) Baso % (Auto) Lymph # (Auto) [place] # (Auto) Eos # (Auto) Baso # (Auto) Abs Immat Gran (auto) Absolute Neuts (auto) Absolute Nucleated RBC Nucleated RBC % (auto) PT INR APTT VBG pH VBG pCO2 VBG pO2 VBG HCO3 VBG O2 Saturation VBG Base Excess Anion Gap Estim Creat Clear Calc Estimated GFR POC Glucose 303 H 306 H Random Glucose Lactic Acid Lactic Acid F/U @ 2Hr Lactic Acid F/U @ 4Hr Calcium Magnesium Total Bilirubin Direct Bilirubin AST ALT Alkaline Phosphatase Total Creatine Kinase Troponin I High Sens Total Protein Albumin Lipase Urine Color Urine Appearance Urine pH Ur Specific [place] Urine Protein Urine Glucose (UA) Urine Ketones Urine Blood Urine Nitrite Ur Leukocyte Esterase Urine RBC Urine WBC Ur Squamous Epith Cells Urine Bacteria Urine Opiates Screen Urine Fentanyl Screen Ur Barbiturates Screen Ur Phencyclidine Scrn Ur Amphetamines Screen U Benzodiazepines Scrn Urine Cocaine Screen U Marijuana (THC) Screen Acetone, Qual COVID-19 (NUZHAT) COVID-19 Spot[facility] Assessment and Plan (1) Acute renal failure: Status: Acute (2) Acute hyperglycemia: Status: Acute Plan 45-year-old female with a past medical history of hypertension, hyperlipidemia, anxiety, depression, diabetes, GERD, obesity, insomnia, asthma presented to the hospital with a chief complaint of hyperglycemia. Diabetes/hyperglycemia, no DKA or HONK, she is non compliant with meds -IVF -Blood sugars still high but better -continue Lantus, SSI, and pre meal insulin, check A1C EMANUEL:d/t pre renal azotemia and improving with IVF. Hold ILSA Hyponatremia: Likely pseudo hyponatremia in setting of hyperglycemia.? Improving with improvement in glucose levels. HTN--BP on lowe side, hold lisinopril Morbid obesity: weight loss adivsie, aware of health risks and aware of her opt ion including watching diet and bariatric surgery as last resort ?For? All other chronic conditions, home medications will be continued ?history of anxiety / depression:? Continue home escitalopram, mirtazapine, risperidone, alprazolam. Inpatient need; due to EMANUEL that need IVF and closer monitiong of Cre, hyperglycemia that is requiring IVF and frequent sugar check and med adjstment Quality Stroke Does the patient have a stroke diagnosis?: No VTE Prior VTE?: No VTE Risk Level:: Medical - moderate - high VTE Device Contraindication: Treatment Not Indicated VTE Drug Contraindication: N/A - Med Ordered
[2021-07-20 12:49] LABS: Hemoglobin A1c % > 14.0 %
--- NOTE | 2021-07-20 13:02 | P.CONNP_ITS ---
History of Present Illness Reason for Consult Consult date: 07/20/21 Reason for consult: EMANUEL Chief Complaint Chief complaint: EMANUEL History of Present Illness Narrative: 45-year-old female with past medical history of hypertension, hyperlipidemia, anxiety, BPD I, depression, diabetes, GERD, obesity, insomnia, asthma presented to the hospital with a chief complaint of generalized weakness and polyuria. She has not been compliant with home insulin. In ED, she was noted to have severe hyperglycemia with fingerstick glucose greater than 600; not in DKA; patient was given regular insulin IV push, IV fluids; also noted to have EMANUEL with S-Cr = 3.32 mg/dL with no prior history of CKD. Repeat renal panel today reveals improvement in S-Cr to 1.89 mg/dL. UA from 07/19 showed extensive glucosuria with urine glucose > 1000. GIven her EMANUEL, renal US was performed but was unremarkable with no evidence of calculi or hydr onephrosis. renal cortical thickness was normal with no evidence of medical renal disease. ROS otherwise negative. Review of Systems Review of Systems Yes all other systems are reviewed and are negative [facility] Past Medical History Medical History Anxiety Asthma Bipolar 1 disorder Dyslipidemia GERD (gastroesophageal reflux disease) HTN (hypertension) Insomnia Severe depression Uncontrolled diabetes mellitus Family History Family History Father Hypertension Diabetes Mother No problems noted. Sister No problems noted. Son No problems noted. Son No problems noted. Daughter No problems noted. Surgical History Surgical History History of Hx of tubal ligation S/P cholecystectomy Social History Social History Housing: Apartment Alcohol intake: never Patient Tobacco Use Status: Former Tobacco user Quit Date: 09/13/2020 Years Smoked: quit 09/13/2020 e-Cigarette/Vaping Use: Never Used Second Hand Smoke Exposure: Yes Advance Directives: No Advance Directives Information Provided: No Patient : No service: No Current occupational status: disabled Meds Allergies Allergy/AdvReac Type Severity Reaction Status Date / Time azithromycin Allergy Unknown (states Verified 07/17/21 12:56 she can take a Zpack) otherwise, throat closes erythromycin base Allergy Unknown THROAT Verified 07/17/21 12:56 [ERYTHROMYCIN BASE] CLOSES UP lamotrigine [From LAMICTAL] Allergy Unknown ANAPHYLAXIS Verified 07/17/21 12:56 Erythromycin Allergy Unknown anaphylaxis Uncoded 07/17/21 12:56 Active Medications: Current Medications Acetaminophen (Acetaminophen 325 Mg Tablet) 650 mg PO Q6H PRN PRN Reason: Pain, Mild (Pain Scale 1-3) Alprazolam (Alprazolam 0.5 Mg Tablet) 1 mg PO TID PRN PRN Reason: Anxiety Last Admin: 07/20/21 00:49 Dose: 1 mg Documented by: Atorvastatin Calcium (Atorvastatin Calcium 40 Mg Tablet) 40 mg PO BEDTIME [facility] Benztropine Mesylate (Benztropine Mesylate 0.5 Mg Tablet) 0.5 mg PO BID [facility] Last Admin: 07/20/21 08:34 Dose: 0.5 mg Documented by: Buspirone HCl (Buspirone Hcl 10 Mg Tablet) 30 mg PO BID [facility] Last Admin: 07/20/21 08:32 Dose: 30 mg Documented by: Dextrose (Dextrose 50 % 25 Gm/50 Ml Syringe) 25 gm IVPUSH Q15M PRN; Protocol PRN Reason: per Hypoglycemia Standing Ord. Escitalopram Oxalate (Escitalopram Oxalate 20 Mg Tablet) 20 mg PO DAILY [facility] Last Admin: 07/20/21 08:34 Dose: 20 mg Documented by: Gabapentin (Gabapentin 600 Mg Tablet) 300 mg PO BID [facility] Last Admin: 07/20/21 08:33 Dose: 300 mg Documented by: Glucose (Glucose Gel 15 Gm Gel..Gram.) 15 gm PO Q15M PRN; Protocol PRN Reason: per Hypoglycemia Standing Ord. Heparin Sodium (Porcine) (Heparin Sodium,Porcine 5,000 Unit/Ml Vial) 5,000 unit SUBCUT Q8H [facility] Last Admin: 07/20/21 08:32 Dose: 5,000 unit Documented by: Insulin Glargine (Insulin Glargine,Hum.Rec.Anlog 100 Unit/Ml 10 Ml Vial) 40 unit SUBCUT BEDTIME [facility] Insulin Human Lispro (Insulin Lispro 100 Unit/Ml 3 Ml Vial) 0 unit SUBCUT QIDACHS [facility]; Protocol Last Admin: 07/20/21 05:59 Dose: 10 unit Documented by: Insulin Human Lispro (Insulin Lispro 100 Unit/Ml 3 Ml Vial) 5 unit SUBCUT QI [facility] Melatonin (Melatonin 3 Mg Tablet) 6 mg PO BEDTIME PRN PRN Reason: Insomnia Metoprolol Succinate (Metoprolol Succinate Er 12.5 Mg Halftab.Er.24h) 12.5 mg PO DAILY [facility]; Protocol Last Admin: 07/20/21 08:34 Dose: 12.5 mg Documented by: Mirtazapine (Mirtazapine 15 Mg Tablet) 15 mg PO BEDTIME [facility] Multivitamins/Vitamin C (Multivitamin Tablet) 1 tab PO DAILY [facility] Last Admin: 07/20/21 08:33 Dose: 1 tab Documented by: Omeprazole (Omeprazole 20 Mg Capsule.Dr) 20 mg PO BID [facility] Last Admin: 07/20/21 08:33 Dose: 20 mg Documented by: Pharmacy Consult (Consult Rx Perform Med Rec) 1 each MISCELLANE ONCE PRN PRN Reason: Consult order Risperidone (Risperidone 3 Mg Tablet) 3 mg PO BEDTIME [facility] Senna (Sennosides 8.6 Mg Tablet) 17.2 mg PO BEDTIME PRN PRN Reason: Constipation Sodium Chloride (0.9 % Sodium Chloride Flush 3 Ml Syringe) 3 ml IVFLUSH QSHIFT [facility] Last Admin: 07/20/21 09:22 Dose: 3 ml Documented by: Vitamin D (Cholecalciferol (Vitamin D3) 25 Mcg Tablet) 50 mcg PO DAILY [facility] Last Admin: 07/20/21 08:33 Dose: 50 mcg Documented by: Home Medications Medication Instructions Recorded Confirmed Last Taken Type alprazolam 1 mg tablet 1 mg PO TID PRN 06/16/20 07/19/21 Unknown History benztropine 0.5 mg tablet 0.5 mg PO BID 06/16/20 07/19/21 07/19/21 History blood sugar diagnostic #10 ea 06/16/20 06/25/21 Unknown History buspirone 30 mg tablet 30 mg PO BID 06/16/20 07/19/21 07/19/21 History escitalopram oxalate 20 mg tablet 20 mg PO DAILY 06/16/20 07/19/21 07/19/21 History insulin regular hum U-500 conc 150 - 190 unit SUBCUT TID ml 06/16/20 07/19/21 07/19/21 History lancets 28 gauge #100 ea 06/16/20 06/25/21 Unknown History mirtazapine 15 mg tablet 15 mg PO BEDTIME 06/16/20 07/19/21 07/18/21 History pen needle, diabetic 31 gauge x #1200 ea 06/16/20 06/25/21 Unknown History 5/16 risperidone 3 mg tablet 3 mg PO BEDTIME 06/16/20 07/19/21 07/18/21 History atorvastatin 40 mg tablet 40 mg PO BEDTIME 07/19/21 07/19/21 07/18/21 History dulaglutide 1.5 mg/0.5 mL 1.5 mg SUBCUT BALLARD 07/19/21 07/19/21 07/11/21 History subcutaneous pen injector (Trulicity) ibuprofen 600 mg tablet 1 tab PO TID PRN 07/19/21 07/19/21 Unknown History multivitamin 1 tab PO DAILY 07/19/21 07/19/21 07/19/21 History Physical Exam Vital Signs: Last Vital Signs Temp 97.7 F 07/20/21 10:47 Pulse 81 07/20/21 10:47 Resp 18 07/20/21 10:47 BP 104/50 L 07/20/21 10:47 Pulse Ox 96 07/20/21 10:47 BMI result Body Mass Index 58.6 Const General: cooperative, comfortable and no acute distress Orientation/consciousness: patient oriented x3 HEENT Head: Yes normocephalic and Yes atraumatic Neck Neck: Yes no JVD Resp Auscultation: clear to auscultation bilaterally Cardio Jugular venous distension: no JVD Rate: regular rate Rhythm: regular rhythm Heart sounds: S1 normal heart sound present and S2 normal heart sound present GI Auscultation: normal bowel sounds Neuro General: patient oriented x3 and no focal motor deficits Extrem General: Yes no clubbing, cyanosis or edema Results Lab Results Result Diagrams: 07/20/21 04:48 07/20/21 04:48 Lab results: Chemistry 07/19/21 07/19/21 07/20/21 16:51 20:32 04:48 Sodium 127 L 133 L 133 L Potassium 5.8 H 4.6 D 5.2 H Carbon Dioxide 23 25 22 BUN 52 H 48 H 41 H Creatinine 3.03 H 2.55 H 1.89 H Calcium 9.4 9.2 9.3 Hematology 07/19/21 07/20/21 16:51 04:48 WBC 9.3 8.0 Hgb 9.3 L 9.3 L Plt Count 234 242 Urinalysis 07/19/21 20:32 Urine Color STRAW Urine Appearance CLEAR Urine pH 5.5 Ur Specific [place] <= 1.005 Urine Protein NEG Urine Glucose (UA) >=1000 H Urine Ketones NEG Urine Blood NEG Urine Nitrite NEG Ur Leukocyte Esterase 1+ H Urine RBC 0 Urine WBC 15-29 H Ur Squamous Epith Cells 2+ Assessment and Plan (1) Acute renal failure: Qualifiers: Acute renal failure type: unspecified Qualified Code(s): N17.9 - Acute kidney failure, unspecified Status: Acute Plan #) EMANUEL, non-oliguric No underlying CKD noted The patient presents with hyperglycemia and glucosuria > 1000 on UA from 07/19. Her EMANUEL is consistent with pre-renal inury from volume depletion induced by osmotic diuresis from poorly controlled BS's MOnitor I/O's Continue maintenance IVF's with daily assessment of Mg, K, Phos for replacement. Sterile pyuria noted on UA as well. will hold on further workup and monitor S-Cr trend. glucose control per primary team. #Hyperkalemia: Continues to have elevated K. - consistent with volume depletion. continue with NS ivf's for distal delivery of Na. lokelma 10 G daily prn K> 5.0 #)Anemia: noted anemia check iron panel, b12, folate for am. Procedures Date of Service Date of Service: 07/20/21
[2021-07-20 17:05] LABS: Glucose, Whole Blood 346 mg/dL (60-115)
[2021-07-20 19:43] LABS: Glucose, Whole Blood 364 mg/dL (60-115)
[2021-07-20] MEDS: Insulin Glargine,Hum.rec.anlog 100 UNIT/ML 10 ML VIAL 40 UNIT SUBCUT (21:16)
[2021-07-20] MEDS: risperiDONE 3 MG TABLET PO (21:18)
[2021-07-20] MEDS: Mirtazapine 15 MG TABLET PO (21:19)
[2021-07-20] MEDS: Atorvastatin Calcium 40 MG TABLET PO (21:19)
[2021-07-20 21:24] LABS: Glucose, Whole Blood 396 mg/dL (60-115)
[2021-07-20 22:42] LABS: Glucose, Whole Blood 326 mg/dL (60-115)
[2021-07-21] MEDS: Heparin Sodium,Porcine 5,000 UNIT/ML VIAL 5000 UNIT SUBCUT ×2 (00:48→07:39)
[2021-07-21] MEDS: 0.9 % Sodium Chloride Flush 3 ML SYRINGE IVFLUSH ×2 (00:48→07:38)
[2021-07-21 03:40] VITALS: BP 129/68; PULSE 74; RESP 16; TEMP 36.8; O2SAT 96
[2021-07-21 07:15] LABS: Glucose, Whole Blood 291 mg/dL (60-115)
[2021-07-21] MEDS: Benztropine Mesylate 0.5 MG TABLET PO (07:36)
[2021-07-21] MEDS: Multivitamin TABLET 1 TAB PO (07:36)
[2021-07-21] MEDS: Insulin Lispro 100 UNIT/ML 3 ML VIAL SUBCUT ×4 (07:36→13:37)
[2021-07-21] MEDS: Gabapentin 600 MG TABLET 300 MG PO (07:36)
[2021-07-21] MEDS: Omeprazole 20 MG CAPSULE.DR PO (07:37)
[2021-07-21] MEDS: Metoprolol Succinate ER 12.5 MG HALFTAB.ER.24H PO (07:37)
[2021-07-21] MEDS: Escitalopram Oxalate 20 MG TABLET PO (07:37)
[2021-07-21] MEDS: Cholecalciferol (Vitamin D3) 25 MCG TABLET 50 MCG PO (07:37)
[2021-07-21 07:40] VITALS: BP 106/52; PULSE 82; RESP 15; TEMP 36.8; O2SAT 97
[2021-07-21 08:02] LABS: Anion Gap 14 (12-20); Blood Urea Nitrogen 22 mg/dL (9-16); Calcium 9.9 mg/dL (8.4-10.2); Carbon Dioxide 26 mmol/L (22-29); Chloride 103 mmol/L (96-108); Creatinine Clr Calc Pharmacy 71.1; Estimated Glomerular Filt Rate 46; Glucose Random 312 mg/dL (60-115); Potassium 4.9 mmol/L (3.3-5.1); Sodium 138 mmol/L (135-145)
[2021-07-21] MEDS: busPIRone HCl 10 MG TABLET 30 MG PO (09:12)
--- NOTE | 2021-07-21 09:52 | PC.NURSE ---
Patient alert and oriented x3, VSS. Patient denies pain dizziness, nausea. POC this AM 291, given insulin per EMAR. Lung sounds clear throughout, +bowel sounds. OOB to bathroom independely. All needs met at this time.
[2021-07-21 11:24] VITALS: BP 91/52; PULSE 77; RESP 18; TEMP 36.4; O2SAT 98
[2021-07-21 11:44] LABS: Glucose, Whole Blood 276 mg/dL (60-115)
--- NOTE | 2021-07-21 12:21 | PM.DS ---
DS: Providers Provider Date of Service: 07/21/21 Date of admission: 07/19/21 23:37 Primary care physician: DAT Ansari Consults: 07/19/21 23:42 Consult to Nephrology Routine Consulting Provider: Domenic Krishnamurthy Reason for consultation: emanuel DS: Diagnosis Discharge Diagnosis (1) Acute renal failure: Status: Resolved (2) Acute hyperglycemia: Status: Resolved DS: Summary Hospital Course Hospital Course: Chief Complaint: Gen weakness; polyuria ?45-year-old female with a past medical history of hypertension, hyperlipidemia, anxiety, depression, diabetes, GERD, obesity, insomnia, asthma presented to the hospital with a chief complaint of hyperglycemia. Patient reports that over the past 2 weeks has been feeling depressed; has not been complaint with her home insulin.? Patient reports that she takes U 500 insulin 3 times a day; Mentions that she has been complaint with rest of her home medications.? She has been not feeling well and generalized weakness; also has polyuria; presented to the ER few days ago has waited for 8 hours and left home; went to the urgent care couple days ago and was noted to have hyperglycemia; patient was recommended to follow-up with the PCP.? Patient mentioned that over the past 2 days she tried to start taking her insulins again.? But still not feeling well; and decided to come to the ER for further evaluation.? Denies any fever chills cough.? Denies any abdominal pain.? Denies any chest pain or palpitations.? Review of all other systems is negative except mentioned above ER course: Per ER team patient noted to have severe hypoglycemia with fingerstick glucose greater than 600; not in DKA; patient was given regular insulin IV push, IV fluids; also noted to have EMANUEL.? Admitted to the hospital for further management. Hospital course Diabetes/hyperglycemia, no DKA or HONK, she is admit to non compliant with meds. Management consisted of IVF, insulin and close monitoring of her sugars. She knows that is very important to take her insulin and other medication EMANUEL:resolved with IVF and holding of ILSA Hyponatremia: Likely pseudo hyponatremia due to hyperglycemia, sodium is normal now HTN--BP on lowe side, hold lisinopril Morbid obesity: weight loss adivsie, aware of health risks and aware of her option including watching diet and bariatric surgery as last resort ?For? All other chronic conditions, home medications will be continued ?history of anxiety / depression:? Continue home escitalopram, mirtazapine, risperidone, alprazolam. I Time Spent with Patient Time attestation: Total time spent providing and/or coordinating discharge services: Discharge coordination time: Greater than 30 minutes Quality: Safe Use of Opioids Does Pt have an Active Cancer Diagnosis on the Problem List?: No Quality: Stroke Does the patient have a stroke diagnosis?: No Physical Exam Vital Signs: Vital Signs: Last Vital Signs Temp 97.6 F 07/21/21 11:24 Pulse 77 07/21/21 11:24 Resp 18 07/21/21 11:24 BP 91/52 L 07/21/21 11:24 Pulse Ox 98 07/21/21 11:24 BMI result Body Mass Index 58.6 DS: Data Data Completed and Pending Labs on day of discharge: Laboratory Results - last 24 hr 07/20/21 07/20/21 07/20/21 04:48 17:01 19:40 Sodium Potassium Chloride Carbon Dioxide Anion Gap BUN Creatinine Estim Creat Clear Calc Estimated GFR POC Glucose 346 H 364 H* Random Glucose Estimat Average Glucose TNP Hemoglobin A1c % > 14.0 Calcium 07/20/21 07/20/21 07/21/21 21:12 22:38 07:11 Sodium Potassium Chloride Carbon Dioxide Anion Gap BUN Creatinine Estim Creat Clear Calc Estimated GFR POC Glucose 396 H* 326 H 291 H Random Glucose Estimat Average Glucose Hemoglobin A1c % Calcium 07/21/21 07/21/21 07:26 11:20 Sodium 138 Potassium 4.9 Chloride 103 Carbon Dioxide 26 Anion Gap 14 BUN 22 H Creatinine 1.26 Estim Creat Clear Calc 71.1 Estimated GFR 46 POC Glucose 276 H Random Glucose 312 H Estimat Average Glucose Hemoglobin A1c % Calcium 9.9 D Preliminary micro results at discharge 07/19/21 16:51 Blood Culture - Preliminary Blood - Venous No growth after 24 hours. 07/19/21 16:31 Blood Culture - Preliminary Blood - Venous No growth after 24 hours. Discharge Plan Discharge Anticipated Discharge Date/Time: 07/21/21 14:44 Patient Disposition: Home, Self-Care Discharge Diagnosis: Hyperglycemia Referrals: Nile Pruett, [facility] [Primary Care Provider] - 1 Week Discharge Medications: Continued gabapentin 600 mg tablet 600 mg PO BID 90 Days Qty: 180 1RF cholecalciferol (vitamin D3) 50 mcg (2,000 unit) capsule 50 mcg PO DAILY 90 Days Qty: 90 1RF pantoprazole 40 mg tablet,delayed release (DR/EC) 40 mg PO BID 90 Days Qty: 180 0RF metoprolol succinate 25 mg tablet extended release 24 hr 12.5 mg PO DAILY 30 Days Qty: 15 3RF Trulicity 1.5 mg/0.5 mL pen injector 1.5 mg subcut BALLARD multivitamin Tablet 1 tab PO DAILY atorvastatin 40 mg tablet 40 mg PO BEDTIME alprazolam 1 mg tablet 1 mg PO TID PRN (Reason: Anxiety) (DME) blood sugar diagnostic Strip See Rx Instructions Not Applicable TID Qty: 10 Rx Instructions: As directed buspirone 30 mg tablet 30 mg PO BID escitalopram oxalate 20 mg tablet 20 mg PO DAILY mirtazapine 15 mg tablet 15 mg PO BEDTIME risperidone 3 mg tablet 3 mg PO BEDTIME benztropine 0.5 mg tablet 0.5 mg PO BID (DME) pen needle, diabetic 31 gauge x 5/16 needle See Rx Instructions subcut QID Qty: 1200 Rx Instructions: As directed (DME) lancets 28 gauge misc See Rx Instructions topical TID Qty: 100 Rx Instructions: As directed insulin regular hum U-500 conc 500 unit/mL (3 mL) insulin pen 150 - 190 unit subcut TID Rx Instructions: sliding scale Discontinued lisinopril 40 mg tablet 40 mg PO DAILY 90 Days Qty: 90 1RF furosemide 20 mg tablet 20 mg PO DAILY Qty: 30 3RF ibuprofen 600 mg tablet 1 tab PO TID PRN (Reason: pain) No Action (DME) blood pressure test kit-large Kit See Rx Instructions .Route Qty: 1 0RF Rx Instructions: for HTN, daily Discharge Orders: Discharge Order (Routine); Ordered 07/21/21 Ordered By: Deshawn Rutledge Activity on Discharge: As tolerated Stand Alone Forms: Patient Portal Discharge page Care Plan Goals: prevent rehospitalization for hyperglycemia Health Concerns: Uncontrolled diabetes, non compliance Plan of Treatment: Take your insulin and all other medication as before, follow up with your Doctor in a week Do no take Motring, stop Lisinopril and Lasix and follow up with your Doctor in a week, call for appointment Assessment: As above Discharge Date/Time: 07/22/21 17:00
[2021-07-21 13:05] VITALS: BP 130/72
[2021-07-21 13:31] LABS: Glucose, Whole Blood 279 mg/dL (60-115)
== END 2021-07-22 17:00 | disposition home or self-care (01) | DRG 638 ==
LOC: HO.ED 18:12 → HO.EDOVER 23:41
PROVIDERS: Admitting Provider Hospitalist; Emergency Provider Emergency Medicine; PCP Nurse Practitioner Family; Visit Provider Internal Medicine
DX: E11.65 Type 2 diabetes mellitus with hyperglycemia (principal); N17.9 Acute kidney failure, unspecified; E87.2 Acidosis; Z68.43 Body mass index [BMI] 50.0-59.9, adult; T38.3X6A Underdosing of insulin and oral hypoglycemic [antidiabetic] drugs, initial encounter; K21.9 Gastro-esophageal reflux disease without esophagitis; E86.0 Dehydration; F31.9 Bipolar disorder, unspecified; E78.5 Hyperlipidemia, unspecified; F41.9 Anxiety disorder, unspecified; I10 Essential (primary) hypertension; D64.9 Anemia, unspecified; E66.01 Morbid (severe) obesity due to excess calories; Z20.822 Contact with and (suspected) exposure to COVID-19; Z98.51 Tubal ligation status; Z90.49 Acquired absence of other specified parts of digestive tract; Z87.891 Personal history of nicotine dependence; Z88.1 Allergy status to other antibiotic agents; Z79.4 Long term (current) use of insulin; Z79.899 Other long term (current) drug therapy
CPT/HCPCS: 36415; 76775; 80048; 80076; 80307; 81001; 82009; 82550; 82803; 82947; 83036; 83605; 83690; 83735; 84484; 85025; 85610; 85730; 87040; 87086; 87147; 87635; 93005; 96361; 96376; 99285; 99291

== ENCOUNTER → 2021-07-30 07:58 | Outpatient (BNVA) | payer OTHER, SELFPAY | PROVIDERS: PCP Nurse Practitioner Family; Visit Provider Dietitian, Registered | DX: E66.01 Morbid (severe) obesity due to excess calories (principal); Z68.43 Body mass index [BMI] 50.0-59.9, adult | CPT/HCPCS: 97803 ==

== ENCOUNTER 2021-08-20 15:19 | Outpatient (REF) | payer OTHER, SELFPAY ==
[2021-08-20 15:37] LABS: MANUAL DIFF FLAG NO
[2021-08-20 15:42] LABS: Basophils Percent Auto 0.3 % (0-2); Eosinophils Absolute Auto 0.1 X10*3/uL (0.0-0.4); Eosinophils Percent Auto 1.5 % (0-4); Hematocrit 34.4 % (37.0-47.0); Hemoglobin 11.2 g/dl (12.0-16.0); Imm Gran Abs Auto 0.02 X10*3/uL (0.00-0.03); Imm Gran Pct Auto 0.2 % (0.0-0.4); Lymphocytes Absolute Auto 4.1 X10*3/uL (1.2-4.9); Lymphocytes Percent Auto 46.4 % (20-40); Mean Corpuscular HGB Conc 32.6 g/dl (31.0-35.0); Mean Corpuscular Hemoglobin 29.7 pg (27.0-33.0); Mean Corpuscular Volume 91.2 fL (80.0-98.0); Mean Platelet Volume 10.4 fL (9.4-12.3); Monocytes Absolute Auto 0.4 X10*3/uL (0.1-1.2); Neutrophils Absolute Auto 4.1 x10*3/uL (2.0-8.3); Neutrophils Percent Auto 46.6 % (45-73); Platelet Count 264 X10*3/uL (160-400); Red Blood Count 3.77 X10*6/uL (4.20-5.50); Red Cell Distribution Width 13.2 % (11.0-16.0); White Blood Count 8.9 X10*3/uL (4.8-10.8)
[2021-08-20 15:58] LABS: Anion Gap 18 (12-20); Blood Urea Nitrogen 11 mg/dL (9-16); Calcium 9.4 mg/dL (8.4-10.2); Carbon Dioxide 22 mmol/L (22-29); Chloride 104 mmol/L (96-108); Estimated Glomerular Filt Rate 50; Iron 97 mcg/dL (30-160); Percent Iron Saturation 35 % (15-50); Potassium 4.7 mmol/L (3.3-5.1); Sodium 139 mmol/L (135-145); Total Iron Binding Capacity 275 mcg/dL (228-428); Unsaturated Iron Binding 178 ug/dL
[2021-08-20 16:07] LABS: Appearance Urine CLOUDY; Color Urine YELLOW; Glucose Urine UA NEG (NEG); Leukocyte Esterase Urine 2+ (NEG); Nitrite Urine NEG (NEG); PH 5.5 (5.0-8.0); Specific Gravity - Urine 1.025 (1.005-1.025); Urine Blood 2+ (NEG); Urine Ketones NEG (NEG); Urine Protein NEG (NEG-TRACE)
[2021-08-20 16:10] LABS: UACC Culture Trigger YES
[2021-08-20 16:20] LABS: Ferritin 325 ng/mL (10-250)
[2021-08-20 16:24] LABS: Bacteria Urine 3+ /LPF; Mucus Urine 2+ /LPF; Squamous Epithelial Cell Urine 3+ /LPF
[2021-08-20 16:30] LABS: Creatinine Urine 88.08 mg/dL; Microalbum/Creatinine Ratio Ur 14.7 ug/mg cr; Total Protein Urine Random < 7 mg/dL (<12)
== END 2021-08-20 15:20 | disposition home or self-care (01) ==
LOC: HO.LAB 15:19
PROVIDERS: PCP Nurse Practitioner Family; Visit Provider Internal Medicine Nephrology
DX: R80.9 Proteinuria, unspecified (principal); N18.31 Chronic kidney disease, stage 3a; E11.22 Type 2 diabetes mellitus with diabetic chronic kidney disease
CPT/HCPCS: 36415; 80051; 81001; 82043; 82310; 82565; 82728; 83540; 84156; 84520; 85025; 87086

== ENCOUNTER → 2021-08-23 11:00 | Outpatient (BNVA) | payer OTHER, SELFPAY | PROVIDERS: PCP Nurse Practitioner Family; Visit Provider Counselor Mental Health | DX: F31.9 Bipolar disorder, unspecified (principal) | CPT/HCPCS: 90791 ==

== ENCOUNTER 2021-09-02 15:05 | Outpatient (REF) | payer OTHER, SELFPAY ==
[2021-09-02 16:41] LABS: MANUAL DIFF FLAG NO
[2021-09-02 16:46] LABS: Appearance Urine CLEAR; Color Urine YELLOW; Glucose Urine UA 250 MG/DL (NEG); Leukocyte Esterase Urine NEG (NEG); Nitrite Urine NEG (NEG); PH 5.5 (5.0-8.0); Specific Gravity - Urine >= 1.030 (1.005-1.025); Urine Blood NEG (NEG); Urine Ketones NEG (NEG); Urine Protein NEG (NEG-TRACE)
[2021-09-02 16:50] LABS: Basophils Percent Auto 0.3 % (0-2); Eosinophils Absolute Auto 0.1 X10*3/uL (0.0-0.4); Eosinophils Percent Auto 1.5 % (0-4); Hematocrit 34.7 % (37.0-47.0); Hemoglobin 11.7 g/dl (12.0-16.0); Imm Gran Abs Auto 0.02 X10*3/uL (0.00-0.03); Imm Gran Pct Auto 0.2 % (0.0-0.4); Lymphocytes Absolute Auto 4.3 X10*3/uL (1.2-4.9); Lymphocytes Percent Auto 49.4 % (20-40); Mean Corpuscular HGB Conc 33.7 g/dl (31.0-35.0); Mean Corpuscular Hemoglobin 29.9 pg (27.0-33.0); Mean Corpuscular Volume 88.7 fL (80.0-98.0); Monocytes Absolute Auto 0.4 X10*3/uL (0.1-1.2); Monocytes Percent Auto 4.4 % (2-11); Neutrophils Absolute Auto 3.8 x10*3/uL (2.0-8.3); Neutrophils Percent Auto 44.2 % (45-73); Platelet Count 241 X10*3/uL (160-400); Red Blood Count 3.91 X10*6/uL (4.20-5.50); Red Cell Distribution Width 13.2 % (11.0-16.0); White Blood Count 8.7 X10*3/uL (4.8-10.8)
[2021-09-02 16:59] LABS: Alanine Aminotransferase 30 U/L (0-31); Albumin Level 4.2 g/dL (3.5-5.0); Alkaline Phosphatase 108 U/L (39-117); Anion Gap 13 (12-20); Aspartate Amino Transferase 21 U/L (5-31); Bilirubin Total 0.6 mg/dL (0.0-1.0); Blood Urea Nitrogen 11 mg/dL (9-16); Calcium 9.6 mg/dL (8.4-10.2); Carbon Dioxide 26 mmol/L (22-29); Chloride 103 mmol/L (96-108); Cholesterol 135 mg/dL; Estimated Glomerular Filt Rate > 60; Glucose Fasting 236 mg/dL (60-99); HDL Cholesterol 43 mg/dL; LDL Cholesterol Calculated 78 mg/dl; Potassium 4.2 mmol/L (3.3-5.1); Sodium 138 mmol/L (135-145); Triglycerides 71 mg/dL
[2021-09-02 17:19] LABS: TSH reflex Free T4 2.15 uIU/mL (0.32-4.0)
== END 2021-09-02 15:06 | disposition home or self-care (01) ==
LOC: HO.HMGCLDS 15:05
PROVIDERS: PCP Nurse Practitioner Family; Visit Provider Nurse Practitioner Family
DX: E11.65 Type 2 diabetes mellitus with hyperglycemia (principal)
CPT/HCPCS: 36415; 80053; 80061; 81003; 84443; 85025

== ENCOUNTER → 2021-10-29 08:21 | Outpatient (REF) | payer OTHER, SELFPAY ==
--- NOTE | ~2021-10-29 | NM_ITS ---
EXAMINATION: RADIONUCLIDE SOLID FOOD GASTRIC EMPTYING 4-HOUR STUDY CLINICAL INFORMATION: Gastroparesis. COMPARISON: No previous gastric emptying study is available for comparison. TECHNIQUE: A standard meal consisting of 4 oz of Egg Beaters brand equivalent tagged with 950 microcuries Tc-99m Sulfur Colloid, 8 oz water and 2 slices of toast with jelly was administered orally to the patient. Images were obtained using a dual head gamma camera in the anterior and posterior projections over of the stomach immediately post ingestion and at hourly intervals up to 4 hours post ingestion. The anterior and posterior counts at each time interval were averaged using the geometric mean and expressed as percentage of the immediate post ingestion counts. FINDINGS: There is good visualization of activity in the stomach immediately post ingestion. As the study progresses, there is significantly delayed clearance of activity from the stomach and visualization of progressively increasing small bowel activity. At the end of the study there is moderate to marked retention of activity in the stomach, although diffuse small bowel activity is well visualized. Retention in the stomach at each time interval was: 1 hour 87% (normal 37%-90%) 2 hours 68% (normal 30%-60%) 3 hours 54% 4 hours 46% (normal 0%-10%) NM/NM gastric emptying study IMPRESSION: Abnormal study. There is moderate to marked abnormal retention of solid food in the stomach at 4 hours.
== END ==
LOC: HO.NUCMED 08:21
PROVIDERS: Visit Provider Nurse Practitioner Family
DX: K31.84 Gastroparesis (principal)
CPT/HCPCS: 78264; A9541

== ENCOUNTER 2022-04-23 12:42 | Emergency (ER) | payer OTHER, SELFPAY | END 2022-04-23 13:48 | disposition left against medical advice (07) | PROVIDERS: Emergency Provider Emergency Medicine; PCP Nurse Practitioner Family | DX: M79.672 Pain in left foot (principal); M79.605 Pain in left leg ==

== ENCOUNTER 2022-04-26 13:31 | Outpatient (REF) | payer OTHER, SELFPAY ==
--- NOTE | ~2022-04-26 | XR_ITS ---
EXAMINATION: XR FOOT, LEFT CLINICAL INFORMATION: Contusion left foot. COMPARISON: None TECHNIQUE: AP, lateral, and oblique views of the left foot. FINDINGS: The bones and soft tissues appear unremarkable. No fracture identified. Alignment is anatomic. Joint spaces are maintained. XR/XR foot LT min 3V IMPRESSION: Normal plain film examination of the left foot.
== END 2022-04-26 13:32 | disposition home or self-care (01) ==
LOC: HO.HMGCX 13:31
PROVIDERS: PCP Nurse Practitioner Family; Visit Provider Internal Medicine
DX: S90.32XA Contusion of left foot, initial encounter (principal)
CPT/HCPCS: 73630

== ENCOUNTER → 2022-06-14 11:54 | Outpatient (BNVA) | payer OTHER, SELFPAY | PROVIDERS: PCP Nurse Practitioner Family; Visit Provider Physician Assistant | DX: K21.9 Gastro-esophageal reflux disease without esophagitis (principal); E11.43 Type 2 diabetes mellitus with diabetic autonomic (poly)neuropathy; E11.65 Type 2 diabetes mellitus with hyperglycemia; K31.84 Gastroparesis; E66.01 Morbid (severe) obesity due to excess calories; Z68.43 Body mass index [BMI] 50.0-59.9, adult; Z90.49 Acquired absence of other specified parts of digestive tract; Z79.4 Long term (current) use of insulin | CPT/HCPCS: 99202 ==

== ENCOUNTER 2022-08-05 14:09 | Outpatient (REF) | payer OTHER, SELFPAY ==
--- NOTE | ~2022-08-05 | MM_ITS ---
EXAMINATION: MM SCREENING DIGITAL BREAST TOMOSYNTHESIS, BILATERAL CLINICAL INFORMATION: Screening. Asymptomatic. The lifetime risk of breast cancer based on the Tyrer-Cuzick Model is 12%. COMPARISON: Mammography: 08/18/2020, 11/08/2018 TECHNIQUE: Digital breast tomosynthesis is performed in both the craniocaudal and mediolateral oblique views along with computer-aided detection (CAD). Synthesized 2D images are generated from the tomosynthesis. Additional bilateral CC and left MLO views are provided. FINDINGS: There are scattered areas of fibroglandular density (ACR BI-RADS breast composition Category b). Right breast is unremarkable. No developing density or interval mass or architectural abnormality. Neither breast shows abnormal calcifications. The bilateral axilla and skin contours are unremarkable. Left breast has equal attenuation small nodular asymmetry central outer breast on CC views. Patient will be recalled for additional imaging. MM/MM tomosynthesis screening BI IMPRESSION: Left: -Nodular asymmetric density central outer breast on CC views. Right: -No mammographic evidence of malignancy. ASSESSMENT: BI-RADS 0: Incomplete - Need Additional Imaging Evaluation RECOMMENDATION: 1. Additional views left breast (spot CC, spot MLO). 2. Targeted ultrasound if warranted after review of the additional views. 3. Radiology department staff will contact the patient for additional imaging. This patient's information was entered into a reminder system with a target due date for their next mammogram.
== END 2022-08-05 14:10 | disposition home or self-care (01) ==
LOC: HO.MAMMO 14:09
PROVIDERS: PCP Nurse Practitioner Family; Visit Provider Nurse Practitioner Family
DX: Z12.31 Encounter for screening mammogram for malignant neoplasm of breast (principal)
CPT/HCPCS: 77063; 77067

== ENCOUNTER 2022-08-19 14:47 | Outpatient (REF) | payer OTHER, SELFPAY ==
--- NOTE | ~2022-08-19 | MM_ITS ---
EXAMINATION: MM DIAGNOSTIC DIGITAL BREAST TOMOSYNTHESIS, LEFT CLINICAL INFORMATION: Recall from screening for question of equal attenuation small nodular asymmetry central outer left breast on CC view. COMPARISON: Mammography: 08/05/2022, 08/18/2020, 11/08/2018 TECHNIQUE: Digital breast tomosynthesis is performed. 2D images are generated from the tomosynthesis. The following views are obtained: Spot CC x2, spot MLO. FINDINGS: There are scattered areas of fibroglandular density (ACR BI-RADS breast composition Category b). The additional views show fibroglandular tissue similar to prior studies. There is no developing density or interval mass or architectural abnormality. No significant changes. Results are provided to the patient at time of visit by the technologist. MM/MM tomosynthesis added views L IMPRESSION: No mammographic evidence of malignancy. ASSESSMENT: BI-RADS 1: Negative RECOMMENDATION: Routine annual mammography screening. This patient's information was entered into a reminder system with a target due date for their next mammogram.
== END 2022-08-19 14:48 | disposition home or self-care (01) ==
LOC: HO.MAMMO 14:47
PROVIDERS: PCP Nurse Practitioner Family; Visit Provider Nurse Practitioner Family
DX: N64.89 Other specified disorders of breast (principal)
CPT/HCPCS: 77061; 77065

== ENCOUNTER 2022-08-25 09:34 | Outpatient (REF) | payer OTHER, SELFPAY ==
[2022-08-30 22:13] LABS: HPV mRNA E6/E7 rflx Not Detected (Not Detected)
== END 2022-08-25 09:35 | disposition home or self-care (01) ==
LOC: HO.LNP 09:34
PROVIDERS: Visit Provider Obstetrics & Gynecology
DX: Z01.419 Encounter for gynecological examination (general) (routine) without abnormal findings (principal); Z11.51 Encounter for screening for human papillomavirus (HPV)
CPT/HCPCS: 87624; 88142

== ENCOUNTER → 2022-08-25 14:11 | Outpatient (BNVA) | payer OTHER, SELFPAY | PROVIDERS: PCP Nurse Practitioner Family; Visit Provider Obstetrics & Gynecology ==

== ENCOUNTER 2022-09-07 13:19 | Outpatient (REF) | payer OTHER, SELFPAY ==
[2022-09-08 02:03] LABS: CT PCR NOT DETECTED (Not Detect.); NG PCR NOT DETECTED (Not Detect.)
[2022-09-08 12:53] LABS: BV Int Neg Control Negative (Negative); BV Int Pos Control Positive (Positive)
== END 2022-09-07 13:20 | disposition home or self-care (01) ==
LOC: HO.LNP 13:19
PROVIDERS: PCP Nurse Practitioner Family; Visit Provider Obstetrics & Gynecology
DX: B37.31 Acute candidiasis of vulva and vagina (principal)
CPT/HCPCS: 0353U; 87480; 87510; 87660; 99212

== ENCOUNTER 2023-04-06 14:28 | Outpatient (AMB) | payer OTHER, SELFPAY ==
[2023-04-06 15:48] VITALS: BP 132/76; PULSE 71; O2SAT 100; BMI 52.2
--- NOTE | 2023-04-06 15:48 | MHC.PC.OV ---
Vital Signs 04/06/23 15:48 Height 5 ft Weight 267 lb 2 oz BMI 52.2 BP 132/76 Blood Pressure Location Rt brachial Position Sitting Pulse 71 Pulse Source Pulse Oximeter Pulse Oximetry (%) 100 Oxygen Delivery Method Room Air Intake Visit Reasons: 6 month follow up Intake Note: Pt is here for her DM will not see [facility] Endo again until the end of September pt last saw them in 02/02 and this was not done then Allergies azithromycin Allergy (Unknown, Verified 04/06/23 15:55) (states she can take a Zpack) otherwise, throat closes erythromycin base [ERYTHROMYCIN BASE] Allergy (Unknown, Verified 04/06/23 15:55) THROAT CLOSES UP lamotrigine [From LAMICTAL] Allergy (Unknown, Verified 04/06/23 15:55) ANAPHYLAXIS Erythromycin Allergy (Unknown, Uncoded 04/06/23 15:55) anaphylaxis Tobacco use date assessed: 04/06/23 Dental Screening Dental Screen Date: 04/06/23 Did you have a dental visit in the last 12 months?: No Did you have a dental problem in the last 6 months where you did not have access to dental care?: No Was dental information given to patient?: Patient has dentist HPI 6 month follow up HPI Details Pt is a diabetic, on an ILSA and a statin. A1C in office today is 10.1 (pt reports she was previously at 16). Due for microalbumin. Denies polyuria, polydipsia, does report neuropathy. Pt denies any signs and symptoms of hypoglycemia and does know how to correct it. Will increase mounjaro from 5mg to 7.5mg. Pt is also taking 50 units tid of insulin, will increase to 55 units tid. Pt will be seeing endo in September. Due for eye exam, will refer. Instructed pt to obtain her prevnar vaccine from her pharmacy. [facility] Medical History Asthma Anxiety HTN (hypertension) Dyslipidemia Uncontrolled diabetes mellitus Severe depression Insomnia Bipolar 1 disorder GERD (gastroesophageal reflux disease) Surgical History Hx of tubal ligation S/P cholecystectomy History of Family History Father Hypertension Diabetes Mother Mental health disorder Ovarian cancer Sister Mental health disorder Son No problems noted. Son No problems noted. Daughter No problems noted. Social History Housing: Apartment Alcohol intake: never Patient Tobacco Use Status: Current everyday Tobacco user Cigarettes Per Day: 10 Years Smoked: quit 09/13/2020 e-Cigarette/Vaping Use: Never Used Second Hand Smoke Exposure: Yes service: No Current occupational status: disabled Cognitive needs: No Hearing needs: No Vision needs: No Female Reproductive History Menstrual Age of Menarche: 10 Questionnaire PHQ-9 Over the last 2 weeks, how often have you been bothered by any of the following problems? 1. Little interest or pleasure in doing things: nearly every day 2. Feeling down, depressed, or hopeless: nearly every day 3. Trouble falling or staying asleep, or sleeping too much: nearly every day 4. Feeling tired or having little energy: nearly every day 5. Poor appetite or overeating: nearly every day 6. Feeling bad about yourself - or that you are a failure or have let yourself or your family down: nearly every day 7. Trouble concentrating on things, such as reading the newspaper or watching television: nearly every day 8. Moving or speaking so slowly that other people could have noticed. Or the opposite - being so fidgety or restless that you have been moving around a lot more than usual: nearly every day 9. Thoughts that you would be better off or of hurting yourself in some way: nearly every day Total score: 27 Source: Developed by Drs. Adis Stern, Kelsi Alegre, Casey Swenson and colleagues, with an educational micky from [employer]. Thrive Questionnaire Date Thrive assessed: 04/06/23 I am a: Patient What is your living situation today?: I have a place to live, but I am worried about losing it in the future Within the past 12 months, did the food you bought not last and you didn't have the money to get more?: Never true Within the past 12 months, did you worry whether your food would run out before you got money to buy more?: Never true Do you have trouble paying for medicines?: No Do you have trouble getting transportation to medical appointments?: No Do you have trouble paying your heating and electricity bill?: No Do you have trouble taking care of your child, family member or friend?: No Do you have trouble with day-to-day activities such as bathing, preparing meals, shopping, managing finances, etc.?: Yes Are you currently unemployed and looking for a job?: Yes Are you interested in more education?: No Please select the resources that you would like help with: Housing/Fpc THRIVE Score: 1 AUDIT C Alcohol Use Questionnaire (AUDIT-C) 1. How often do you have a drink containing alcohol?: Never 2. How many drinks containing alcohol do you have on a typical day when you are drinking?: 1 or 2 3. How often do you have six or more drinks on one occasion?: Never Total Score: 0 NANDA-7 AMB Questionnaire NANDA-7 Date NANDA - 7 assessed: 04/06/23 Feeling nervous, anxious, or on edge: 3 = Nearly every day Not being able to stop or control worryin = Nearly every day Worrying too much about different things: 3 = Nearly every day Trouble relaxin = Nearly every day Being so restless that it is hard to sit still: 3 = Nearly every day Becoming easily annoyed or irritable: 3 = Nearly every day Feeling afraid as if something awful might happen: 3 = Nearly every day Total NANDA-7 score (0-4 normal; 5-9 mild; 10-14 moderate; 15-21 severe): 21 Source: Developed by Drs. Adis Stern, Kelsi Alegre, Casey Swenson and colleagues, with an educational micky from [employer]. Review of Systems Const Reports as per HPI Physical exam (Primary Care) Vital Signs: Last Vital Signs Pulse 71 04/06/23 15:48 BP 132/76 04/06/23 15:48 Pulse Ox 100 04/06/23 15:48 Oxygen Delivery Method Room Air 04/06/23 15:48 BMI result Body Mass Index 52.2 Tobacco/Smoking Status: Tobacco use Status Tobacco use date assessed 04/06/23 04/06/23 15:59 Patient Tobacco Use Status Current everyday Tobacco 04/06/23 15:59 e-Cigarette/Vaping Use Never Used 04/06/23 15:48 PHQ-9: PHQ-9 Score PHQ-9: Total score 27 04/06/23 16:34 Thrive Assessment: Date of Thrive Assessment Date Thrive assessed 04/06/23 04/06/23 16:12 Const General: cooperative Orientation/consciousness: patient oriented x3 Resp Effort & Inspection: normal respiratory effort Auscultation: clear to auscultation bilaterally Cardio Rate: regular rate Rhythm: regular rhythm Heart sounds: S1 normal heart sound present and S2 normal heart sound present Neuro General: patient oriented x3 Extrem Other: bilat feet: + sensation with use of monofilament Psych Appearance: grossly normal Mental Status: mental status grossly normal Speech and movement: Normal speech and movement present Affect: normal affect Attitude: cooperative Thought process: Normal thought process present Thought content: Normal thought content present Insight: Good insight present (Psych) Judgement: Good judgement present (Psych) Results AMB Hemoglobin A1c AMB Hemoglobin A1c 10.1 % Last Edit by Alana Aragon CMA on 04/06/23 16:17 Results Reviewed Results Reviewed: Laboratory Last Values Hgb A1c (Clinic) 10.1 % (4.0-6.0) H 04/06/23 16:08 Assessment and Plan Assessment & Plan (1) Diabetes: Code(s): E11.9 - Type 2 diabetes mellitus without complications Plan: Labs ordered, increasing mounjaro and insulin, referred for eye exam Plan The patient agreed to the use of a medical transport specialist for this encounter. Scribed for KSENIA Retana by Kaylee Galdamez medical transport specialist, on 04/06/2023 at 16:25 EST. Orders: Orders Complete Blood Count Auto Diff Today E11.9 - Type 2 diabetes mellitus without complications Comprehensive [place]. Panel Fast Today E11.9 - Type 2 diabetes mellitus without complications TSH reflex Free T4 Today E11.9 - Type 2 diabetes mellitus without complications AMB Hemoglobin A1c Today E11.9 - Type 2 diabetes mellitus without complications UA CC w/rflx Micro + Cult Today E11.9 - Type 2 diabetes mellitus without complications Lipid Panel Today E11.9 - Type 2 diabetes mellitus without complications Microalbumin, Random (w Creat) Today E11.9 - Type 2 diabetes mellitus without complications Referrals Ophthalmology Referral E11.9 - Type 2 diabetes mellitus without complications Medications: New tirzepatide 7.5 mg (0.5 mL) subcut QWEEK 2 mL 0RF Coding Level of Care Code Est Pt Level 3 (72419) Diagnoses Diabetes E11.9
== END 2023-04-06 16:44 | disposition home or self-care (01) ==
PROVIDERS: Visit Provider Nurse Practitioner Family
DX: E11.9 Type 2 diabetes mellitus without complications (principal)
CPT/HCPCS: 83036; 99213

== ENCOUNTER 2023-05-15 11:31 | Emergency (ER) | payer OTHER, SELFPAY ==
--- NOTE | ~2023-05-15 | US_ITS ---
EXAMINATION: US ABDOMEN COMPLETE CLINICAL INFORMATION: Left upper quadrant pain. COMPARISON: Renal ultrasound July 19, 2021 TECHNIQUE: Real-time imaging of the abdominal viscera. Color Doppler exam utilized. FINDINGS: PANCREAS: Obscured by bowel gas ABDOMINAL AORTA: The proximal, mid, and distal segments are normal in caliber. INFERIOR VENA CAVA: Visualized portions are normal. LIVER: Diffuse increased echogenicity of the parenchyma of liver consistent with fatty change. No focal hepatic lesion. There is no intrahepatic biliary duct dilatation seen. GALLBLADDER: Status post cholecystectomy COMMON BILE DUCT: Normal in caliber measuring 0.4 cm in diameter. RIGHT KIDNEY: Normal. No hydronephrosis. No renal calculi or focal parenchymal lesions. The kidney measures 11.5 cm in maximum dimension. LEFT KIDNEY: Normal. No hydronephrosis. No renal calculi or focal parenchymal lesions. The kidney measures 11.4 cm in maximum dimension. SPLEEN: Normal. The spleen measures 11.6 cm in maximum dimension. FREE FLUID: None. US/US abdomen complete IMPRESSION: 1. No acute abnormality. Status post cholecystectomy. No bile duct dilatation. 2. Diffuse fatty change of liver.
[2023-05-15 11:58] VITALS: BP 185/89; PULSE 84; RESP 18; TEMP 36.6; O2SAT 98; BMI 53.5
--- NOTE | 2023-05-15 12:02 | ED.ABDPAIN ---
HPI - Abdominal Pain General Chief Complaint: Abdominal Pain Stated Complaint: upper L side pain/ vomiting Time Seen by Provider: 05/15/23 18:57 Source: patient and family Mode of arrival: ambulatory Limitations: no limitations History of Present Illness HPI narrative: Patient with vomiting, diarrhea and abdominal pain for the past few day. She is feeling weak MD elicited complaint: abdominal pain Onset (ago): day(s) Pain Consistency: intermittent Associated symptoms: vomiting and diarrhea Related Data Home Medications ?Medication ?Instructions ?Recorded ?Confirmed alprazolam 1 mg tablet 1 mg PO TID PRN Anxiety 06/16/20 08/02/23 blood sugar diagnostic #10 ea 06/16/20 08/02/23 buspirone 30 mg tablet 30 mg PO BID 06/16/20 08/02/23 escitalopram oxalate 20 mg tablet 20 mg PO DAILY 06/16/20 08/02/23 lancets 28 gauge #100 ea 06/16/20 08/02/23 mirtazapine 15 mg tablet 15 mg PO BEDTIME 06/16/20 08/02/23 pen needle, diabetic 31 gauge x #1,200 ea 06/16/20 08/02/23 5/16 risperidone 3 mg tablet 3 mg PO BEDTIME 06/16/20 08/02/23 multivitamin 1 tab PO DAILY 07/19/21 08/02/23 glucagon 3 mg/actuation nasal mg intranasal 07/27/22 08/02/23 spray (Baqsimi) insulin regular hum U-500 conc 500 75 unit subcut TID 08/02/23 08/02/23 unit/mL(3 mL) subcut pen Previous Rx's ?Medication ?Instructions ?Recorded blood pressure test kit-large #1 ea 08/23/21 terconazole 0.8 % vaginal cream 1 appful vaginal BEDTIME 3 days 09/07/22 #20 grams lisinopril 10 mg tablet 10 mg PO DAILY #90 tabs 01/05/23 tirzepatide 7.5 mg/0.5 mL 7.5 mg (0.5 mL) subcut QWEEK #6 mL 05/08/23 subcutaneous pen injector ondansetron 4 mg disintegrating 4 mg PO Q8H 4 days #12 tabs 05/15/23 tablet pantoprazole 40 mg tablet,delayed 40 mg PO BID 90 days #180 tabs 06/22/23 release atorvastatin 40 mg tablet 40 mg PO BEDTIME #90 tabs 07/08/23 betamethasone valerate 0.1 % 1 appl topical BID PRN skin 08/02/23 topical cream irritation #45 grams clotrimazole-betamethasone 1 1 appl topical BID 5 days #45 grams 08/29/23 %-0.05 % topical cream terconazole 0.8 % vaginal cream 1 appful vaginal BEDTIME 3 days 08/29/23 #20 grams cholecalciferol (vitamin D3) 50 50 mcg PO DAILY 90 days #90 caps 11/13/23 mcg (2,000 unit) capsule betamethasone dipropionate 0.05 % 1 appl topical DAILY PRN skin 11/30/23 topical cream irritation 30 days #45 grams gabapentin 600 mg tablet 600 mg PO BID 90 days #180 tabs 01/01/24 insulin degludec 100 unit/mL (3 10 unit (0.1 mL) subcut DAILY #15 01/01/24 mL) subcutaneous pen (Tresiba mL FlexTouch U-100 insulin) Allergies Allergy/AdvReac Type Severity Reaction Status Date / Time azithromycin Allergy Unknown (states Verified 12/04/23 08:24 she can take a Zpack) otherwise, throat closes erythromycin base Allergy Unknown THROAT Verified 12/04/23 08:24 [ERYTHROMYCIN BASE] CLOSES UP lamotrigine [From LAMICTAL] Allergy Unknown ANAPHYLAXIS Verified 12/04/23 08:24 Erythromycin Allergy Unknown anaphylaxis Uncoded 12/04/23 08:24 Review of Systems Review of Systems Yes all other systems are reviewed and are negative Denies Sensory deficit (Neuro) PMFSH Past Medical History Medical History Asthma Anxiety HTN (hypertension) Dyslipidemia Uncontrolled diabetes mellitus Severe depression Insomnia Bipolar 1 disorder GERD (gastroesophageal reflux disease) Surgical History Hx of tubal ligation S/P cholecystectomy History of Family History Family History Father Hypertension Diabetes Mother Mental health disorder Ovarian cancer Sister Mental health disorder Son No problems noted. Son No problems noted. Daughter No problems noted. Social History Social History Housing: Apartment Alcohol intake: never Patient Tobacco Use Status: Current everyday Tobacco user Cigarettes Per Day: 10 Years Smoked: quit 09/13/2020 e-Cigarette/Vaping Use: Never Used Second Hand Smoke Exposure: Yes service: No Current occupational status: disabled Cognitive needs: No Hearing needs: No Vision needs: No Physical Exam ED Vital Signs: Vital Signs - 24 hr 05/15/23 11:58 05/15/23 15:29 05/15/23 19:59 Temperature 98 F 96.4 F L 97.9 F Pulse Rate 84 78 75 Respiratory Rate 18 18 20 Blood Pressure 185/89 H 176/83 H 166/63 H Pulse Oximetry 98 96 96 Oxygen Delivery Method Room Air Room Air Room Air BMI result Body Mass Index 53.5 Const Other: obese female looking older than stated age in no acute distress Orientation/consciousness: oriented to person and patient oriented x3 Limitations: no limitations HENMT Head: Yes normal to inspection Ears: external ears normal General nose exam: Normal external nose present Mouth: Normal oral and palatal mucosa present and oropharynx normal Throat: Yes posterior oropharynx normal Eyes General: appearance normal, both eyes and all related structures Neck Neck: Yes normal visual inspection Chest Chest palpation & inspection: normal inspection of the chest Resp Auscultation: clear to auscultation bilaterally Cardio Jugular venous distension: no JVD Rate: regular rate Rhythm: regular rhythm Heart sounds: S1 normal heart sound present and S2 normal heart sound present GI Inspection: Yes normal to inspection Palpation (GI): Soft to palpation, nontender and No hepatosplenomegaly present Auscultation: normal bowel sounds General: Yes no CVA tenderness Back/Spine/Pelvis Back: no CVA tenderness Skin General skin exam: no rashes or lesions noted Neuro General: oriented to person and patient oriented x3 Cranial nerves: Yes CN's II-XII intact bilaterally Motor exam (neuro): 5/5 motor strength present throughout Sensory Exam: No Sensory deficit (Neuro) Extrem General: Yes normal to inspection Psych Appearance: grossly normal Course Course Course Narrative: BARBI Alvarado Noon - 47-year-old presenting to the ER with complaints of left upper quadrant abdominal pain for the past week with associated nausea/vomiting/diarrhea. She reports she has had intermittent episodes of black stool. Has a history of a cholecystectomy. Otherwise denies any other symptoms including fevers, chills, chest pain or shortness of breath, dysuria hematuria or any other symptoms complaints or concerns. Plan: Will obtain labs, abdominal ultrasound, UA patient will be sent back to the waiting room to be evaluated in the ED. Reevaluation(s) Reevaluation #1: will hydrate, bring down sugar and replete magnesium and DC home with covid and dehydation Time: 20:13 Medical Decision Making Differential Diagnosis Differential Diagnoses: The differential diagnosis associated with the presentation includes (vomiting, diarrhea, covid, influenza, rsv, dehydration, pancreatitis, hepatitis were all considered) Admission/Observation Consideration of admission/observation: Escalation of care including admission/observation considered (upon arrival patient was considered for admission) Lab Data 05/15/23 13:12 05/15/23 13:12 Labs: Lab Results 05/15/23 Range/Units 13:12 WBC 7.7 (4.8-10.8) X10*3/uL RBC 4.55 (4.20-5.50) X10*6/uL Hgb 13.2 (12.0-16.0) g/dl Hct 38.5 (37.0-47.0) % MCV 84.6 (80.0-98.0) fL MCH 29.0 (27.0-33.0) pg MCHC 34.3 (31.0-35.0) g/dl RDW 13.2 (11.0-16.0) % Plt Count 229 (160-400) X10*3/uL MPV 10.1 (9.4-12.3) fL Immature Gran % (Auto) 0.3 (0.0-0.4) % Neut % (Auto) 37.5 L (45-73) % Lymph % (Auto) 53.9 H (20-40) % [place] % (Auto) 6.0 (2-11) % Eos % (Auto) 1.8 (0-4) % Baso % (Auto) 0.5 (0-2) % Lymph # (Auto) 4.1 (1.2-4.9) X10*3/uL [place] # (Auto) 0.5 (0.1-1.2) X10*3/uL Eos # (Auto) 0.1 (0.0-0.4) X10*3/uL Baso # (Auto) 0.0 (0.0-0.2) X10*3/uL Abs Immat Gran (auto) 0.02 (0.00-0.03) X10*3/uL Absolute Neuts (auto) 2.9 (2.0-8.3) x10*3/uL Absolute Nucleated RBC 0.000 (0.0-0.012) X10*3/uL Nucleated RBC % (auto) 0.0 (0.0-0.2) /100WBC Sodium 138 (135-145) mmol/L Potassium 3.8 (3.3-5.1) mmol/L Chloride 106 (96-108) mmol/L Carbon Dioxide 25 (22-29) mmol/L Anion Gap 11 L (12-20) BUN 9 (9-16) mg/dL Creatinine 0.83 (0.5-1.4) mg/dL Estim Creat Clear Calc 95.7 Estimated GFR > 60 Random Glucose 263 H (60-115) mg/dL Calcium 9.5 (8.4-10.2) mg/dL Magnesium 1.3 L* (1.6-2.6) mg/dL Total Bilirubin 0.4 (0.0-1.0) mg/dL Direct Bilirubin 0.2 (0.0-0.5) mg/dL AST 12 (5-31) U/L ALT 12 (0-31) U/L Alkaline Phosphatase 84 (39-117) U/L Total Protein 7.7 (6.5-8.0) g/dL Albumin 3.9 (3.5-5.0) g/dL Lipase 18 (8-78) U/L Urine Color Dark Yellow Urine Appearance Turbid Urine pH 5.5 (5.0-9.0) Ur Specific [place] >= 1.030 H (1.005-1.025) Urine Protein >=1000 (4+) H (Neg-Trace) mg/dL Urine Glucose (UA) >=1000 H (Negative) mg/dL Urine Ketones Trace (Negative) mg/dL Urine Blood Small (1+) H (Negative) Urine Nitrite Negative (Negative) Ur Leukocyte Esterase Negative (Negative) Urine RBC 3-5 H (0-2) /HPF Urine WBC 6-10 (0-5) /HPF Ur Squamous Epith Cells 11-20 (0-2) /HPF Urine Bacteria 1+ (None Seen) Hyaline Casts 0-2 (0-2) /LPF Influenza Type A (PCR) NEGATIVE (Negative) Influenza Type B (PCR) NEGATIVE (Negative) RSV RNA Qual (PCR) NEGATIVE (Negative) SARS-CoV-2 RNA (RT-PCR) POSITIVE A (Negative) Radiology Impression Discussion of test interpretation with radiology: I have reviewed the radiologist's reading. (of the [place] and agree) Independent Historian Clinical information obtained from an independent historian. History obtained from or confirmed by: Other (daughter) External Record Review External record reviewed: Prior outpatient labs Prescription Management I considered prescription management with: Antibiotic (no uti seen) Chronic Conditions Patient?s care impacted by: Diabetes, Hypertension and Other (obesity) Social Determinants Patient?s care significantly limited by Social Determinants of Health including: Low income Medications Administered Discontinued Medications Generic Name Dose Route Start Last Admin Trade Name Freq PRN Reason Stop Dose Admin Magnesium Sulfate 2 gm in 50 mls @ 25 mls/hr 05/15/23 19:04 05/15/23 20:25 Magnesium Sulfate/H2o IV 05/15/23 21:03 25 mls/hr ONCE ONE Administration Sodium Chloride 500 mls @ 999 mls/hr 05/15/23 19:15 05/15/23 20:27 Ns IV 05/15/23 19:45 999 mls/hr .Q31M JARETT Administration Insulin Human Lispro 5 unit 05/15/23 19:05 05/15/23 20:26 Insulin Lispro 100 Unit/Ml 3 Ml Vial SUBCUT 05/15/23 19:06 5 unit ONCE ONE Administration Ondansetron HCl 4 mg 05/15/23 15:28 05/15/23 15:32 Ondansetron Odt 4 Mg Tab.Rapdis TRANSLINGU 05/15/23 15:29 4 mg ONCE ONE Administration Discharge Plan Discharge Clinical Impression: COVID-19, Uncontrolled diabetes mellitus, Acute dehydration Patient Disposition: Home, Self-Care Instructions: Dehydration (ED), COVID-19 (Coronavirus Disease 2019) (ED) Prescriptions: New ondansetron 4 mg tablet,disintegrating 4 mg PO Q8H 4 Days Qty: 12 0RF No Action (DME) blood pressure test kit-large Kit See Rx Instructions .Route Qty: 1 0RF Rx Instructions: for HTN, daily lisinopril 10 mg tablet 10 mg PO DAILY Qty: 90 1RF tirzepatide 7.5 mg/0.5 mL pen injector 7.5 mg subcut QWEEK Qty: 6 1RF pantoprazole 40 mg tablet,delayed release (DR/EC) 40 mg PO BID 90 Days Qty: 180 1RF atorvastatin 40 mg tablet 40 mg PO BEDTIME Qty: 90 0RF cholecalciferol (vitamin D3) 50 mcg (2,000 unit) capsule 50 mcg PO DAILY 90 Days Qty: 90 1RF betamethasone dipropionate 0.05 % cream 1 appl topical DAILY PRN (Reason: skin irritation) 30 Days Qty: 45 0RF insulin degludec [Tresiba FlexTouch U-100] 100 unit/mL (3 mL) insulin pen 10 unit subcut DAILY Qty: 15 0RF gabapentin 600 mg tablet 600 mg PO BID 90 Days Qty: 180 1RF multivitamin Tablet 1 tab PO DAILY Baqsimi 3 mg/actuation spray,non-aerosol intranasal insulin regular hum U-500 conc 500 unit/mL (3 mL) insulin pen 75 unit subcut TID Rx Instructions: sliding scale pt reports 20 units betamethasone valerate 0.1 % cream 1 appl topical BID PRN (Reason: skin irritation) Qty: 45 0RF alprazolam 1 mg tablet 1 mg PO TID PRN (Reason: Anxiety) (DME) blood sugar diagnostic Strip See Rx Instructions Not Applicable TID Qty: 10 Rx Instructions: As directed buspirone 30 mg tablet 30 mg PO BID escitalopram oxalate 20 mg tablet 20 mg PO DAILY mirtazapine 15 mg tablet 15 mg PO BEDTIME risperidone 3 mg tablet 3 mg PO BEDTIME (DME) pen needle, diabetic 31 gauge x 5/16 needle See Rx Instructions subcut QID Qty: 1200 Rx Instructions: As directed (DME) lancets 28 gauge misc See Rx Instructions topical TID Qty: 100 Rx Instructions: As directed terconazole 0.8 % cream 1 appful vaginal BEDTIME 3 Days Qty: 20 0RF clotrimazole-betamethasone 1-0.05 % cream 1 appl topical BID 5 Days Qty: 45 0RF terconazole 0.8 % cream 1 appful vaginal BEDTIME 3 Days Qty: 20 0RF Referrals: Glogowski,Hermelindo, [facility] [Primary Care Provider] - 5 days Interventions: ED Discharge Assessment Last Done: 05/15/23 23:03 Discharge Date/Time: 05/15/23 22:05 Print Language: Malagasy
[2023-05-15 13:20] LABS: MANUAL DIFF FLAG NO
[2023-05-15 13:21] LABS: Basophils Percent Auto 0.5 % (0-2); Eosinophils Absolute Auto 0.1 X10*3/uL (0.0-0.4); Eosinophils Percent Auto 1.8 % (0-4); Hematocrit 38.5 % (37.0-47.0); Hemoglobin 13.2 g/dl (12.0-16.0); Imm Gran Abs Auto 0.02 X10*3/uL (0.00-0.03); Imm Gran Pct Auto 0.3 % (0.0-0.4); Lymphocytes Absolute Auto 4.1 X10*3/uL (1.2-4.9); Lymphocytes Percent Auto 53.9 % (20-40); Mean Corpuscular HGB Conc 34.3 g/dl (31.0-35.0); Mean Corpuscular Volume 84.6 fL (80.0-98.0); Mean Platelet Volume 10.1 fL (9.4-12.3); Monocytes Absolute Auto 0.5 X10*3/uL (0.1-1.2); Neutrophils Absolute Auto 2.9 x10*3/uL (2.0-8.3); Neutrophils Percent Auto 37.5 % (45-73); Platelet Count 229 X10*3/uL (160-400); Red Blood Count 4.55 X10*6/uL (4.20-5.50); Red Cell Distribution Width 13.2 % (11.0-16.0); White Blood Count 7.7 X10*3/uL (4.8-10.8)
[2023-05-15 13:24] LABS: Appearance Urine Turbid; Color Urine Dark Yellow; Glucose Urine UA >=1000 mg/dL (Negative); Leukocyte Esterase Urine Negative (Negative); Nitrite Urine Negative (Negative); PH 5.5 (5.0-9.0); Specific Gravity - Urine >= 1.030 (1.005-1.025); UMIC TRIGGER UACC YES; Urine Blood Small (1+) (Negative); Urine Ketones Trace mg/dL (Negative); Urine Protein >=1000 (4+) mg/dL (Neg-Trace)
[2023-05-15 13:41] LABS: Bacteria Urine 1+ (None Seen); Hyaline Casts Urine 0-2 /LPF (0-2); UACC Culture Trigger YES
[2023-05-15 13:53] LABS: Alanine Aminotransferase 12 U/L (0-31); Albumin Level 3.9 g/dL (3.5-5.0); Alkaline Phosphatase 84 U/L (39-117); Anion Gap 11 (12-20); Aspartate Amino Transferase 12 U/L (5-31); Bilirubin Direct 0.2 mg/dL (0.0-0.5); Bilirubin Total 0.4 mg/dL (0.0-1.0); Blood Urea Nitrogen 9 mg/dL (9-16); Calcium 9.5 mg/dL (8.4-10.2); Carbon Dioxide 25 mmol/L (22-29); Chloride 106 mmol/L (96-108); Creatinine Clr Calc Pharmacy 95.7; Estimated Glomerular Filt Rate > 60; Glucose Random 263 mg/dL (60-115); Lipase 18 U/L (8-78); Magnesium 1.3 mg/dL (1.6-2.6); Potassium 3.8 mmol/L (3.3-5.1); Sodium 138 mmol/L (135-145); Total Protein 7.7 g/dL (6.5-8.0)
[2023-05-15 14:15] LABS: Influenza A PCR NEGATIVE (Negative); Influenza B PCR NEGATIVE (Negative); Resp Syncy Virus RNA Qual PCR NEGATIVE (Negative); SARS COV2 PCR INHOUSE POSITIVE (Negative)
[2023-05-15 15:29] VITALS: BP 176/83; PULSE 78; RESP 18; TEMP 35.8; O2SAT 96
[2023-05-15] MEDS: Ondansetron ODT 4 MG TAB.RAPDIS TRANSLINGU (15:32)
--- NOTE | 2023-05-15 19:43 | PC.NURSE ---
Attempt to place IV not successful at this time. Another RN will try.
[2023-05-15 19:59] VITALS: BP 166/63; PULSE 75; RESP 20; TEMP 36.6; O2SAT 96
[2023-05-15] MEDS: Magnesium Sulfate/H2O 2 GM/50 ML PIGGYBACK IV (20:25)
[2023-05-15] MEDS: Insulin Lispro 100 UNIT/ML 3 ML VIAL SUBCUT (20:26)
[2023-05-15] MEDS: 0.9 % Sodium Chloride 500 ML 999 ML IV (20:27)
[2023-05-15 21:22] VITALS: BP 188/87; PULSE 73; RESP 16; O2SAT 96
[2023-05-15 22:00] VITALS: BP 168/77; PULSE 76; RESP 18; TEMP 36.7; O2SAT 97
== END 2023-05-15 22:05 | disposition home or self-care (01) ==
PROVIDERS: Physician Assistant Medical; Emergency Provider Emergency Medicine; PCP Nurse Practitioner Family
DX: U07.1 COVID-19 (principal); E86.0 Dehydration; E11.65 Type 2 diabetes mellitus with hyperglycemia; I10 Essential (primary) hypertension; Z90.49 Acquired absence of other specified parts of digestive tract
CPT/HCPCS: 0241U; 76700; 80053; 81001; 82248; 83690; 83735; 85025; 87086; 87147; 96374; 99284; J3475

== ENCOUNTER 2023-08-02 10:55 | Outpatient (AMB) | payer OTHER, SELFPAY ==
--- NOTE | 2023-08-02 11:06 | A.OFFPC_ITS ---
Vital Signs 08/02/23 11:09 Height 4 ft 11 in Weight 255 lb BMI 51.5 BP 122/80 Blood Pressure Location Lt brachial Position Sitting Pulse 74 Pulse Source Pulse Oximeter Pulse Oximetry (%) 98 Oxygen Delivery Method Room Air Intake Visit Reasons: Physical exam Intake Note: Patient here for physical exam. mammo:2022 pap: 2022 Allergies azithromycin Allergy (Unknown, Verified 08/02/23 12:14) (states she can take a Zpack) otherwise, throat closes erythromycin base [ERYTHROMYCIN BASE] Allergy (Unknown, Verified 08/02/23 12:14) THROAT CLOSES UP lamotrigine [From LAMICTAL] Allergy (Unknown, Verified 08/02/23 12:14) ANAPHYLAXIS Erythromycin Allergy (Unknown, Uncoded 08/02/23 12:14) anaphylaxis Medication List - Last Reconciled 08/02/23 by Nile Pruett, STARS COORDINATOR- alprazolam 1 mg PO TID PRN atorvastatin 40 mg PO BEDTIME betamethasone dipropionate 0.05% 1 appl topical DAILY PRN 30 days betamethasone valerate 0.1% 1 appl topical BID PRN blood pressure test kit-large for HTN, daily blood sugar diagnostic As directed buspirone 30 mg PO BID cholecalciferol (vitamin D3) 50 mcg PO DAILY 90 days escitalopram oxalate 20 mg PO DAILY gabapentin 600 mg PO BID 90 days glucagon 3 mg/actuation (Baqsimi) mg intranasal insulin degludec (Tresiba FlexTouch U-100 insulin) 10 units (0.1 mL) subcut DAILY insulin regular hum U-500 conc 75 units subcut TID lancets As directed lisinopril 10 mg PO DAILY mirtazapine 15 mg PO BEDTIME multivitamin 1 tab PO DAILY ondansetron 4 mg PO Q8H 4 days pantoprazole 40 mg PO BID 90 days pen needle, diabetic As directed risperidone 3 mg PO BEDTIME terconazole 0.8% 1 appful vaginal BEDTIME 3 days tirzepatide 7.5 mg (0.5 mL) subcut QWEEK Tobacco use date assessed: 04/06/23 Dental Screening Dental Screen Date: 04/06/23 HPI Physical exam HPI Details Pt is here for a PE. Will order labs. Mammo is scheduled. 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 Pt had a cologuard but she lost it, will reorder. Pt is an uncontrolled diabetic, on an ILSA and a statin. A1C in office today is 12.9. Due for microalbumin, this has been ordered. Denies polyuria, polydipsia, does report neuropathy. Pt denies any signs and symptoms of hypoglycemia and does know how to correct it. Pt is currently taking insulin U-500 50 units tid. She reports that her blood sugar is dropping with this. Will decrease to 20 units tid. Will start tresiba 10 units. Pt will be following up with endo in October. Pt reports a itchy, macular, dry appearing shiny patch to her neck. Will send betamethasone and refer to derm. [facility] Medical History Asthma Anxiety HTN (hypertension) Dyslipidemia Uncontrolled diabetes mellitus Severe depression Insomnia Bipolar 1 disorder GERD (gastroesophageal reflux disease) Surgical History Hx of tubal ligation S/P cholecystectomy History of Family History Father Hypertension Diabetes Mother Mental health disorder Ovarian cancer Sister Mental health disorder Son No problems noted. Son No problems noted. Daughter No problems noted. Social History Housing: Apartment Alcohol intake: never Patient Tobacco Use Status: Current everyday Tobacco user Cigarettes Per Day: 10 Years Smoked: quit 09/13/2020 e-Cigarette/Vaping Use: Never Used Second Hand Smoke Exposure: Yes service: No Current occupational status: disabled Cognitive needs: No Hearing needs: No Vision needs: No Female Reproductive History Menstrual Age of Menarche: 10 Questionnaire Thrive Questionnaire Date Thrive assessed: 04/06/23 NANDA-7 AMB Questionnaire NANDA-7 Date NANDA - 7 assessed: 04/06/23 Source: Developed by Drs. Adis Stern, Kelsi Alegre, Casey Swenson and colleagues, with an educational micky from [employer] NANDA-7 Assessment Billing NANDA-7 Assessment Tool: pt declined-do not bill Review of Systems Const Denies chills and Denies fever(s) Eyes Denies blurry vision ENT Denies vertigo, Denies dizziness and Denies sore throat Card Denies chest pain at rest, Denies chest pain with activity, Denies diaphoresis, Denies dyspnea and Denies dyspnea on exertion Resp Denies cough, Denies dyspnea, Denies dyspnea on exertion and Denies wheezing GI Denies abdominal pain, Denies melena, Denies hematochezia, Denies constipation, Denies diarrhea and Denies loose stools Denies hematuria Musc Denies numbness and Denies tingling Skin/Breast Denies lesions Neuro Denies vertigo, Denies dizziness, Denies numbness and Denies tingling Psych Denies anxiety, Denies depression, Denies homicidal ideation, Denies suicidal ideation and Denies other (substance abuse) Aller/Immun Denies wheezing Physical exam (Primary Care) Vital Signs: Last Vital Signs Pulse 74 08/02/23 11:09 BP 122/80 08/02/23 11:09 Pulse Ox 98 08/02/23 11:09 Oxygen Delivery Method Room Air 08/02/23 11:09 BMI result Body Mass Index 51.5 Tobacco/Smoking Status: Tobacco use Status Tobacco use date assessed 04/06/23 08/02/23 11:08 Patient Tobacco Use Status Current everyday Tobacco 08/02/23 11:08 e-Cigarette/Vaping Use Never Used 08/02/23 11:08 Thrive Assessment: Date of Thrive Assessment Date Thrive assessed 04/06/23 08/02/23 11:08 Const General: cooperative Nutritional Appearance: obese morbidly obese Orientation/consciousness: patient oriented x3 HENMT Head: Yes normal to inspection, Yes normocephalic and Yes atraumatic Ears: TM's normal bilaterally Eyes General: appearance normal, both eyes and all related structures Alignment and Position: alignment normal and position normal Neck Neck: Yes normal visual inspection and Yes no lymphadenopathy Thyroid: Thyroid normal Resp Effort & Inspection: normal respiratory effort Auscultation: clear to auscultation bilaterally Cardio Rate: regular rate Rhythm: regular rhythm Heart sounds: S1 normal heart sound present, S2 normal heart sound present and no murmurs GI Palpation (GI): Soft to palpation and nontender Auscultation: normal bowel sounds Skin Other: left base of neck lateral aspect with shiny, macular, dry appearing patch, throughout upper extremities and neck with 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) Rashes: no rashes Neuro General: patient oriented x3, moves all extremities, no focal motor deficits and deep tendon reflexes 2+ bilaterally Romberg Test: Negative Extrem Other: bilat feet: + sensation with use of monofilament, feet intact Psych Appearance: grossly normal Mental Status: mental status grossly normal Speech and movement: Normal speech and movement present Affect: normal affect Attitude: cooperative Thought process: Normal thought process present Thought content: Normal thought content present Insight: Good insight present (Psych) Judgement: Good judgement present (Psych) Results AMB Hemoglobin A1c AMB Hemoglobin A1c 12.9 % Last Edit by ABE Orozco on 08/02/23 11:27 Immunizations pneumoc 20-blair conj-dip cr(PF) 0.5 mL IM syringe Performing Provider: KSENIA Larson [place] [facility] Administered by: ABE Orozco on 08/02/23 11:52 Dose Route Admin Location Dispensed Lot Number Expiration Date ND Web Master 0.5 mL IM Right Deltoid 0.5 mL [id number] 10/11/24 [id number] [employer] VIS Given Date VIS Provided VIS Publication Date 08/02/23 Single Vaccine 21 Eligibility Eligibility Date Funding Source Not VF Eligible 08/02/23 Private Results Reviewed Results Reviewed: Laboratory Last Values Hgb A1c (Clinic) 12.9 % (4.0-6.0) H 08/02/23 11:26 Assessment and Plan Assessment & Plan (1) Systolic murmur: Code(s): R01.1 - Cardiac murmur, unspecified Plan: echo ordered (2) Dermatitis: Code(s): L30.9 - Dermatitis, unspecified Plan: referral to derm, betamethasone sent (3) Encounter for routine adult physical exam with abnormal findings: Code(s): Z00.01 - Encounter for general adult medical examination with abnormal findings (4) Uncontrolled diabetes mellitus: Code(s): E11.65 - Type 2 diabetes mellitus with hyperglycemia Plan: seeing endo in october. decreasing u-500 to 20mg tid from 50-55 units tid, and added tresiba 10 units Plan The patient agreed to the use of a medical review coordinator for this encounter. Scribed for KSENIA Retana by Kaylee Galdamez medical review coordinator, on 08/02/2023 at 11:30 EST. Orders: Orders AMB Hemoglobin A1c Today E11.9 - Type 2 diabetes mellitus without complications CA echo transthoracic complete Today R01.1 - Cardiac murmur, unspecified Pneumococcal 20 Immunization Today Z23 - Encounter for immunization Referrals Cologuard Test Z12.11 - Encounter for screening for malignant neoplasm of colon, Z12.12 - Encounter for screening for malignant neoplasm of rectum Dermatology Referral L30.9 - Dermatitis, unspecified Medications: New insulin degludec (Tresiba FlexTouch U-100 insulin) 10 units (0.1 mL) subcut DAILY 15 mL 0RF betamethasone valerate 0.1% 1 appl topical BID PRN 45 grams 0RF skin irritation Discontinued clotrimazole-betamethasone 1-0.05 % Discontinued Reason: Duplicate 1 appl topical BID 45 grams 0RF 5 days Coding Level of Care Code Est Pt Prev Care 40-64y(60153) Diagnoses Systolic murmur R01.1 Dermatitis L30.9 Encounter for routine adult physical exam with abnormal findings Z00.01 Uncontrolled diabetes mellitus E11.65
[2023-08-02 11:09] VITALS: BP 122/80; PULSE 74; O2SAT 98; BMI 51.5
== END 2023-08-02 11:58 | disposition home or self-care (01) ==
PROVIDERS: PCP Nurse Practitioner Family; Visit Provider Nurse Practitioner Family
DX: Z00.01 Encounter for general adult medical examination with abnormal findings (principal); E11.65 Type 2 diabetes mellitus with hyperglycemia; R01.1 Cardiac murmur, unspecified; Z23 Encounter for immunization; L30.9 Dermatitis, unspecified
CPT/HCPCS: 83036; 90471; 90677; 99213; 99396

== ENCOUNTER 2023-08-29 15:23 | Outpatient (REF) | payer OTHER, SELFPAY ==
[2023-08-30 04:06] LABS: CT PCR NOT DETECTED (Not Detect.); NG PCR NOT DETECTED (Not Detect.)
[2023-08-30 09:03] LABS: Bacterial Vaginosis PCR NEGATIVE (Negative); Candida Group PCR DETECTED (Not Detect); Candida glab krusei PCR DETECTED (Not Detect); Trichomonas vaginalis PCR NOT DETECTED (Not Detect)
== END 2023-08-29 15:24 | disposition home or self-care (01) ==
LOC: HO.LAB 15:23
PROVIDERS: PCP Nurse Practitioner Family; Visit Provider Obstetrics & Gynecology
DX: Z01.419 Encounter for gynecological examination (general) (routine) without abnormal findings (principal); N76.0 Acute vaginitis
CPT/HCPCS: 0352U; 0353U

== ENCOUNTER 2023-08-29 15:23 | Outpatient (AMB) | payer OTHER, SELFPAY ==
[2023-08-29 15:24] VITALS: BP 138/86; BMI 51.2
--- NOTE | 2023-08-29 15:24 | MHC.OFFVIS ---
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 Complaining of bilateral vulvovaginal itching for the last 2 weeks Last Pap/HPV was negative in 09/02 Last Mammogram was BI-RADS 1 in 09/02 No previous screening Colonoscopy [facility] Medical History Asthma Anxiety HTN (hypertension) Dyslipidemia Uncontrolled diabetes mellitus Severe depression Insomnia Bipolar 1 disorder GERD (gastroesophageal reflux disease) Surgical History Hx of tubal ligation S/P cholecystectomy History of Family History Father Hypertension Diabetes Mother Mental health disorder Ovarian cancer Sister Mental health disorder Son No problems noted. Son No problems noted. Daughter No problems noted. Social History Housing: Apartment Alcohol intake: never Patient Tobacco Use Status: Current everyday Tobacco user Cigarettes Per Day: 10 Years Smoked: quit 09/13/2020 e-Cigarette/Vaping Use: Never Used Second Hand Smoke Exposure: Yes service: No Current occupational status: disabled Cognitive needs: No Hearing needs: No Vision needs: No Female Reproductive History Menstrual Age of Menarche: 10 control method: none Total pregnancies: 3 Full term: 3 Number of Living Children: 3 Date of last pap smear: 08/26/22 History of abnormal pap smear: No History of STI: No Date of Mammogram: 08/05/22 Review of Systems Const All systems reviewed & are unremarkable except as noted in HPI and below Card Reports as per HPI Resp Reports as per HPI GI Reports as per HPI and Reports no additional complaints Reports as per HPI Physical Exam Vital Signs: Last Vital Signs BP 138/86 08/29/23 15:24 BMI result Body Mass Index 51.2 Const General: cooperative, healthy appearing and comfortable Chest Chest palpation & inspection: normal inspection of the chest and normal palpation of entire chest wall Breast/axilla inspection: normal inspection of the breasts and normal inspection of the axillae Breast/axilla palpation: normal palpation of the breasts, normal palpation of the axillae and no axillary lymphadenopathy Resp Effort & Inspection: normal respiratory effort Auscultation: clear to auscultation bilaterally Percussion: percussion normal Cardio Palpation: normal PMI Rate: regular rate Rhythm: regular rhythm Heart sounds: no murmurs and no rubs Peripheral pulses: Peripheral pulses 2+ throughout GI Inspection: Yes normal to inspection Palpation (GI): Soft to palpation, nontender, no guarding, not rigid and No hepatosplenomegaly present Percussion: Yes normal to percussion Auscultation: normal bowel sounds Rectal Exam - Female: deferred General: Yes bladder normal to palpation External Female Exam: No lesion Speculum Exam - Vagina: normal appearance of the vagina, normal palpation, normal vaginal discharge and not erythematous Speculum Exam - Cervix: normal appearance of the cervix and normal palpation Bimanual exam- vagina & uterus: normal bimanual exam, normal palpation, uterine size normal, bladder normal to palpation, consistency normal and normal palpation Bimanual Exam- Adnexa, other: normal adnexae, no masses and no tenderness Assessment & Plan Assessment & Plan (1) Well woman exam: Code(s): Z01.419 - Encounter for gynecological examination (general) (routine) without abnormal findings Category: Medical Plan: Cotesting not indicated this year. Mammogram scheduled in 2 weeks. Counseled the patient about the recommended dietary allowance of 1000 mg of Calcium & 600 IU of vitamin D. The patient was instructed to perform monthly self-breast exams and to schedule an annual exam in a year; GI referral for screening colonoscopy placed. All questions answered and the patient verbalized understanding. Instructed the patient to schedule annual exam in a year (2) Vulvovaginitis: Code(s): N76.0 - Acute vaginitis Category: Medical Plan: GC/CT, Bacterial Vaginosis panel taken, Terazol 0.8% q.h.s. for 3 days was sent to the patient's pharmacy. The patient was instructed to call if symptoms don't improve in 48 hours. Orders: Orders MM tomosynthesis screening BI Today Z12.31 - Encounter for screening mammogram for malignant neoplasm of breast Bacterial Vaginosis Panel Today N76.0 - Acute vaginitis CT NG by PCR Today N76.0 - Acute vaginitis Referrals Gastroenterology Referral Z12.11 - Encounter for screening for malignant neoplasm of colon Medications: New terconazole 0.8% 1 appful vaginal BEDTIME 3 days 20 grams 0RF clotrimazole-betamethasone 1-0.05 % 1 appl topical BID 5 days 45 grams 0RF Coding Level of Care Code Est Pt Prev Care 40-64y(27125) Diagnoses Well woman exam Z01.419 Vulvovaginitis N76.0
== END 2023-08-29 15:40 | disposition home or self-care (01) ==
PROVIDERS: PCP Nurse Practitioner Family; Visit Provider Obstetrics & Gynecology
DX: Z01.419 Encounter for gynecological examination (general) (routine) without abnormal findings (principal); N76.0 Acute vaginitis
CPT/HCPCS: 99396

== ENCOUNTER 2023-08-29 15:38 | Outpatient (REF) | payer OTHER, SELFPAY | END 2023-08-29 15:39 | disposition home or self-care (01) | LOC: HO.LNP 15:38 | PROVIDERS: Visit Provider Obstetrics & Gynecology | DX: Z13.89 Encounter for screening for other disorder (principal) ==

== ENCOUNTER 2023-09-11 13:23 | Outpatient (REF) | payer OTHER, SELFPAY | END 2023-09-11 13:24 | disposition home or self-care (01) | LOC: HO.MAMMO 13:23 | PROVIDERS: PCP Nurse Practitioner Family; Visit Provider Nurse Practitioner Family | DX: Z12.31 Encounter for screening mammogram for malignant neoplasm of breast (principal) | CPT/HCPCS: 77063; 77067 ==

== ENCOUNTER → 2023-09-11 13:45 | Outpatient (BNV) | payer OTHER, SELFPAY | PROVIDERS: PCP Nurse Practitioner Family; Visit Provider Radiology Diagnostic Radiology | DX: Z12.31 Encounter for screening mammogram for malignant neoplasm of breast (principal) | CPT/HCPCS: 77063; 77067 ==

== ENCOUNTER → 2023-09-12 13:45 | Outpatient (BNVA) | payer OTHER, SELFPAY | PROVIDERS: PCP Nurse Practitioner Family; Visit Provider Obstetrics & Gynecology ==

== ENCOUNTER 2023-09-20 13:12 | Outpatient (AMB) | payer OTHER, SELFPAY ==
--- NOTE | 2023-09-20 13:30 | MHC.OFFVIS ---
Intake Visit Reasons: 2 week follow up/do not r/s Community Service Coordinator: Community Service Coordinator Present (Jennifer) Allergies azithromycin Allergy (Unknown, Verified 09/20/23 13:34) (states she can take a Zpack) otherwise, throat closes erythromycin base [ERYTHROMYCIN BASE] Allergy (Unknown, Verified 09/20/23 13:34) THROAT CLOSES UP lamotrigine [From LAMICTAL] Allergy (Unknown, Verified 09/20/23 13:34) ANAPHYLAXIS Erythromycin Allergy (Unknown, Uncoded 08/29/23 15:26) anaphylaxis HPI Comments Details: Presenting for follow-up with the patient took Terazol 0.8% q.h.s. for 3 nights with Lotrisone cream b.i.d. for 5 days has improved markedly, no more residual symptoms. [facility] Medical History Asthma Anxiety HTN (hypertension) Dyslipidemia Uncontrolled diabetes mellitus Severe depression Insomnia Bipolar 1 disorder GERD (gastroesophageal reflux disease) Surgical History Hx of tubal ligation S/P cholecystectomy History of Family History Father Hypertension Diabetes Mother Mental health disorder Ovarian cancer Sister Mental health disorder Son No problems noted. Son No problems noted. Daughter No problems noted. Social History Housing: Apartment Alcohol intake: never Patient Tobacco Use Status: Current everyday Tobacco user Cigarettes Per Day: 10 Years Smoked: quit 09/13/2020 e-Cigarette/Vaping Use: Never Used Second Hand Smoke Exposure: Yes service: No Current occupational status: disabled Cognitive needs: No Hearing needs: No Vision needs: No Female Reproductive History Menstrual Age of Menarche: 10 Review of Systems Const All systems reviewed & are unremarkable except as noted in HPI and below Physical Exam General: Yes no CVA tenderness External Female Exam: normal external appearance and normal appearance of the urethra Speculum Exam - Vagina: normal appearance of the vagina, normal palpation, no lesions and no masses Speculum Exam - Cervix: normal appearance of the cervix, normal palpation, no lesions, no masses and nontender Bimanual exam- vagina & uterus: normal bimanual exam, normal palpation, uterine size normal, normal palpation, uterine shape normal, No Cervical tenderness present and non-tender Bimanual Exam- Adnexa, other: normal adnexae Back/Spine/Pelvis Back: no CVA tenderness Assessment & Plan Assessment & Plan (1) Vulvovaginitis: Comment: With inguinal skin candidiasis Code(s): N76.0 - Acute vaginitis Category: Medical Plan: The patient was instructed to keep the area dry, use hair blower after showering, use baby powder without Talc and Desitin cream , and to call in case symptoms recur. All questions answered, the patient verbalized understanding. Coding Level of Care Code Est Pt Level 3 (17912) Diagnoses Vulvovaginitis N76.0
== END 2023-09-20 14:30 | disposition home or self-care (01) ==
PROVIDERS: PCP Nurse Practitioner Family; Visit Provider Obstetrics & Gynecology
DX: N76.0 Acute vaginitis (principal)
CPT/HCPCS: 99213

== ENCOUNTER → 2023-09-20 13:12 | Outpatient (BNVA) | payer OTHER, SELFPAY | PROVIDERS: PCP Nurse Practitioner Family; Visit Provider Obstetrics & Gynecology | DX: N76.0 Acute vaginitis (principal); B37.2 Candidiasis of skin and nail | CPT/HCPCS: 99212 ==

== ENCOUNTER 2023-12-04 08:08 | Outpatient (REF) | payer OTHER, SELFPAY ==
[2023-12-04 11:07] LABS: Influenza A PCR NEGATIVE (Negative); Influenza B PCR NEGATIVE (Negative); Resp Syncy Virus RNA Qual PCR NEGATIVE (Negative); SARS COV2 PCR INHOUSE NEGATIVE (Negative)
== END 2023-12-04 08:09 | disposition home or self-care (01) ==
LOC: HO.LAB 08:08
PROVIDERS: PCP Nurse Practitioner Family; Visit Provider Registered Nurse
DX: J06.9 Acute upper respiratory infection, unspecified (principal)
CPT/HCPCS: 0241U; 87880; 99212

== ENCOUNTER 2023-12-04 08:08 | Outpatient (AMB) | payer OTHER, SELFPAY ==
--- NOTE | 2023-12-04 08:20 | AM.OFFWIN_ITS ---
Intake Vital Signs 12/04/23 08:23 12/04/23 08:57 Height 4 ft 11 in Weight 256 lb BMI 51.7 BP 130/90 H Blood Pressure Location Rt brachial Position Sitting Pulse 97 Pulse Source Pulse Oximeter Temp 99.4 F Temp Source Oral Pulse Oximetry (%) 91 L 93 Oxygen Delivery Method Room Air Intake Visit Reasons: EP-headaches, sore throat, chest congestion Intake Note: Patient here for chest congestion, sore throat, headache and nausea which has all been present since monday. Patient Tobacco Use Status: Current everyday Tobacco user Allergies azithromycin Allergy (Unknown, Verified 12/04/23 08:24) (states she can take a Zpack) otherwise, throat closes erythromycin base [ERYTHROMYCIN BASE] Allergy (Unknown, Verified 12/04/23 08:24) THROAT CLOSES UP lamotrigine [From LAMICTAL] Allergy (Unknown, Verified 12/04/23 08:24) ANAPHYLAXIS Erythromycin Allergy (Unknown, Uncoded 12/04/23 08:24) anaphylaxis Do you need a note to return to daycare/school/sports/work: No HPI EP-headaches, sore throat, chest congestion HPI Details This note is constructed using voice recognition software. While every effort has been made to ensure accuracy, automobiles salesperson errors may have been included. The patient is a 48 year old female who presents to the clinic today with cough, sore throat, headache, congestion since yesterday after exposure to his son who was sick on the weekend. Symptom onset was 3 days ago. She has a history of asthma, however has not needed an inhaler in several years. She also quit smoking several years ago. [facility] Medical History Asthma Anxiety HTN (hypertension) Dyslipidemia Uncontrolled diabetes mellitus Severe depression Insomnia Bipolar 1 disorder GERD (gastroesophageal reflux disease) Surgical History Hx of tubal ligation S/P cholecystectomy History of Family History Father Hypertension Diabetes Mother Mental health disorder Ovarian cancer Sister Mental health disorder Son No problems noted. Son No problems noted. Daughter No problems noted. Social History Housing: Apartment Alcohol intake: never Patient Tobacco Use Status: Current everyday Tobacco user Cigarettes Per Day: 10 Years Smoked: quit 09/13/2020 e-Cigarette/Vaping Use: Never Used Second Hand Smoke Exposure: Yes service: No Current occupational status: disabled Cognitive needs: No Hearing needs: No Vision needs: No Female Reproductive History Menstrual Age of Menarche: 10 Review of Systems Const All systems reviewed & are unremarkable except as noted in HPI and below Physical Exam Vital Signs: Last Vital Signs Temp 99.4 F 12/04/23 08:23 Pulse 97 12/04/23 08:23 BP 130/90 H 12/04/23 08:23 Pulse Ox 91 L 12/04/23 08:23 Oxygen Delivery Method Room Air 12/04/23 08:23 BMI result Body Mass Index 51.7 Const General: cooperative, healthy appearing, comfortable and no acute distress Orientation/consciousness: patient oriented x3 Limitations: no limitations HEENT Head: Yes normal to inspection Ears: hearing grossly normal bilaterally, external ears normal and TM's normal bilaterally General nose exam: Normal external nose present, Normal nares present and No nasal discharge present Face and sinus: Yes normal facial exam and Yes sinuses nontender Mouth: Normal oral and palatal mucosa present and moist mucous membranes Throat: Yes tonsils normal, Yes uvula midline and Yes posterior oropharynx abnormal (Erythema) Eyes General: appearance normal, both eyes and all related structures Neck Neck: Yes normal visual inspection Resp Effort & Inspection: normal respiratory effort, able to speak in complete sentences, Actively coughing, no respiratory distress, not tachypneic, no tripod positioning and no use of accessory muscles Auscultation: clear to auscultation bilaterally Cardio Jugular venous distension: no JVD Rate: regular rate Rhythm: regular rhythm Heart sounds: S1 normal heart sound present, S2 normal heart sound present, no click, no gallops, no murmurs and no rubs Skin General skin exam: no rashes or lesions noted, elasticity normal and turgor normal Neuro General: patient oriented x3 Extrem General: Yes normal to inspection and Yes no clubbing, cyanosis or edema Results AMB Rapid Strep AMB Rapid Strep Negative Last Edit by ABE Orozco on 12/04/23 08:51 Assessment & Plan Assessment & Plan (1) URI (upper respiratory infection): Code(s): J06.9 - Acute upper respiratory infection, unspecified Qualifiers: URI type: unspecified URI Qualified Code(s): J06.9 - Acute upper respiratory infection, unspecified Plan: Viral swab obtained to rule out Covid based on symptoms. Advised mask wearing while symptomatic and quarantine per current CDC guidelines. Reviewed at home support methods including hydration, humidification, vix vapor rub, sinus rinse. Discussed treatment with antiviral therapy for covid with paxlovid including appropriate use and side effects, and need to start medication within 5 day of symptom onset, preferably within 48 hours of symptom onset. Patient wishes to proceed with paxlovid if results are positive. Advised follow up with worsening symptoms such as dyspnea at rest, which would require emergent evaluation. Plan See above for full details and plan. Orders: Orders AMB Rapid Strep Screen Today Z13.9 - Encounter for screening, unspecified SARS-CoV2/FLU/RSV Today J06.9 - Acute upper respiratory infection, unspecified Coding Level of Care Code Est Pt Level 3 (26146) Diagnoses Upper respiratory tract infection, unspecified type J06.9 URI type: unspecified URI
[2023-12-04 08:23] VITALS: BP 130/90; PULSE 97; TEMP 37.4; O2SAT 91; BMI 51.7
[2023-12-04 08:57] VITALS: O2SAT 93
== END 2023-12-04 09:14 | disposition home or self-care (01) ==
PROVIDERS: PCP Nurse Practitioner Family; Visit Provider Registered Nurse
DX: Z13.9 Encounter for screening, unspecified (principal); J06.9 Acute upper respiratory infection, unspecified

== ENCOUNTER 2024-01-24 09:35 | Outpatient (REF) | payer OTHER, SELFPAY ==
[2024-01-24 13:16] LABS: Appearance Urine Clear; Color Urine Yellow; Glucose Urine UA >=1000 mg/dL (Negative); Leukocyte Esterase Urine Trace (Negative); Nitrite Urine Negative (Negative); PH 5.5 (5.0-9.0); Specific Gravity - Urine >= 1.030 (1.005-1.025); UMIC TRIGGER UACC YES; Urine Blood Trace (Negative); Urine Ketones Trace mg/dL (Negative); Urine Protein 100 (2+) mg/dL (Neg-Trace)
[2024-01-24 13:23] LABS: Bacteria Urine 1+ (None Seen); Hyaline Casts Urine 0-2 /LPF (0-2); RBC Urine 0-2 /HPF (0-2); UACC Culture Trigger YES; WBC Urine 21-50 /HPF (0-5)
[2024-01-24 13:25] LABS: MANUAL DIFF FLAG NO
[2024-01-24 13:36] LABS: Basophils Percent Auto 0.4 % (0-2); Eosinophils Absolute Auto 0.1 X10*3/uL (0.0-0.4); Eosinophils Percent Auto 1.1 % (0-4); Hematocrit 39.9 % (37.0-47.0); Hemoglobin 13.9 g/dl (12.0-16.0); Imm Gran Abs Auto 0.01 X10*3/uL (0.00-0.03); Imm Gran Pct Auto 0.1 % (0.0-0.4); Lymphocytes Absolute Auto 3.4 X10*3/uL (1.2-4.9); Lymphocytes Percent Auto 47.7 % (20-40); Mean Corpuscular HGB Conc 34.8 g/dl (31.0-35.0); Mean Corpuscular Volume 86.2 fL (80.0-98.0); Mean Platelet Volume 11.2 fL (9.4-12.3); Monocytes Absolute Auto 0.4 X10*3/uL (0.1-1.2); Monocytes Percent Auto 5.4 % (2-11); Neutrophils Absolute Auto 3.2 x10*3/uL (2.0-8.3); Neutrophils Percent Auto 45.3 % (45-73); Platelet Count 225 X10*3/uL (160-400); Red Blood Count 4.63 X10*6/uL (4.20-5.50); Red Cell Distribution Width 13.2 % (11.0-16.0)
[2024-01-24 13:59] LABS: Creatinine Urine 51.08 mg/dL
[2024-01-24 14:11] LABS: Microalbum/Creatinine Ratio Ur 1634.6 ug/mg cr (<30)
[2024-01-24 14:21] LABS: Alanine Aminotransferase 15 U/L (0-31); Albumin Level 4.4 g/dL (3.5-5.0); Alkaline Phosphatase 82 U/L (39-117); Anion Gap 15 (12-20); Aspartate Amino Transferase 19 U/L (5-31); Bilirubin Total 0.4 mg/dL (0.0-1.0); Blood Urea Nitrogen 10 mg/dL (9-16); Calcium 10.5 mg/dL (8.4-10.2); Carbon Dioxide 24 mmol/L (22-29); Chloride 102 mmol/L (96-108); Cholesterol 233 mg/dL (<200); Estimated Glomerular Filt Rate 57; HDL Cholesterol 47 mg/dL (>40); LDL Cholesterol Calculated 165 mg/dL (<100); Potassium 3.9 mmol/L (3.3-5.1); Sodium 137 mmol/L (135-145); TSH reflex Free T4 2.51 uIU/mL (0.32-4.0); Total Protein 8.3 g/dL (6.5-8.0); Triglycerides 105 mg/dL (<150)
[2024-01-24 14:28] LABS: Glucose Fasting 494 mg/dL (60-99)
== END 2024-01-24 09:36 | disposition home or self-care (01) ==
LOC: HO.HMGCLDS 09:35
PROVIDERS: PCP Nurse Practitioner Family; Visit Provider Nurse Practitioner Family
DX: I10 Essential (primary) hypertension (principal); E11.9 Type 2 diabetes mellitus without complications
CPT/HCPCS: 36415; 80053; 80061; 81001; 82043; 82570; 84443; 85025; 87086; 87147; 96127; 99212

== ENCOUNTER 2024-01-24 09:35 | Outpatient (AMB) | payer OTHER, SELFPAY ==
--- NOTE | 2024-01-24 09:36 | MHC.PC.OV ---
Vital Signs 01/24/24 09:37 Height 4 ft 11 in Weight 246 lb BMI 49.7 BP 138/88 Blood Pressure Location Rt brachial Position Sitting Pulse 90 Pulse Source Pulse Oximeter Pulse Oximetry (%) 94 Oxygen Delivery Method Room Air Intake Visit Reasons: 6 mon f/u Intake Note: pt is here for 6 month follow up Allergies azithromycin Allergy (Unknown, Verified 01/24/24 10:22) (states she can take a Zpack) otherwise, throat closes erythromycin base [ERYTHROMYCIN BASE] Allergy (Unknown, Verified 01/24/24 10:22) THROAT CLOSES UP lamotrigine [From LAMICTAL] Allergy (Unknown, Verified 01/24/24 10:22) ANAPHYLAXIS Erythromycin Allergy (Unknown, Uncoded 01/24/24 10:22) anaphylaxis Medication List - Last Reconciled 01/24/24 by Nile Pruett, [facility]- alprazolam 1 mg PO TID PRN atorvastatin 40 mg PO BEDTIME betamethasone dipropionate 0.05% 1 appl topical DAILY PRN 30 days betamethasone valerate 0.1% 1 appl topical BID PRN blood pressure test kit-large for HTN, daily blood sugar diagnostic As directed buspirone 30 mg PO BID cholecalciferol (vitamin D3) 50 mcg PO DAILY 90 days clotrimazole-betamethasone 1-0.05 % 1 appl topical BID 5 days escitalopram oxalate 20 mg PO DAILY gabapentin 600 mg PO BID 90 days glucagon 3 mg/actuation (Baqsimi) mg intranasal insulin degludec (Tresiba FlexTouch U-100 insulin) 10 units (0.1 mL) subcut DAILY insulin regular hum U-500 conc 75 units subcut TID lancets As directed lisinopril 10 mg PO DAILY mirtazapine 15 mg PO BEDTIME multivitamin 1 tab PO DAILY ondansetron 4 mg PO Q8H 4 days pantoprazole 40 mg PO BID 90 days pen needle, diabetic As directed risperidone 3 mg PO BEDTIME terconazole 0.8% 1 appful vaginal BEDTIME 3 days terconazole 0.8% 1 appful vaginal BEDTIME 3 days tirzepatide 7.5 mg (0.5 mL) subcut QWEEK Tobacco use date assessed: 04/06/23 Dental Screening Dental Screen Date: 04/06/23 HPI 6 mon f/u HPI Details HTN: Blood pressure is stable, managed with lisinopril 10mg. Denies chest pain, shortness of breath, headache, dizziness, and blurred vision. Pt is a diabetic, sees [facility]. HTN: stable today. Encouraged pt to have labs drawn, she will do these today. [facility] Medical History Asthma Anxiety HTN (hypertension) Dyslipidemia Uncontrolled diabetes mellitus Severe depression Insomnia Bipolar 1 disorder GERD (gastroesophageal reflux disease) Surgical History Hx of tubal ligation S/P cholecystectomy History of Family History Father Hypertension Diabetes Mother Mental health disorder Ovarian cancer Sister Mental health disorder Son No problems noted. Son No problems noted. Daughter No problems noted. Social History Housing: Apartment Alcohol intake: never Patient Tobacco Use Status: Current everyday Tobacco user Cigarettes Per Day: 10 Years Smoked: quit 09/13/2020 Packs per year/per ci.00 e-Cigarette/Vaping Use: Never Used Second Hand Smoke Exposure: Yes service: No Current occupational status: disabled Cognitive needs: No Hearing needs: No Vision needs: No Female Reproductive History Menstrual Age of Menarche: 10 Questionnaire PHQ-9 Over the last 2 weeks, how often have you been bothered by any of the following problems? 1. Little interest or pleasure in doing things: nearly every day 2. Feeling down, depressed, or hopeless: nearly every day 3. Trouble falling or staying asleep, or sleeping too much: nearly every day 4. Feeling tired or having little energy: nearly every day 5. Poor appetite or overeating: nearly every day 6. Feeling bad about yourself - or that you are a failure or have let yourself or your family down: nearly every day 7. Trouble concentrating on things, such as reading the newspaper or watching television: nearly every day 8. Moving or speaking so slowly that other people could have noticed. Or the opposite - being so fidgety or restless that you have been moving around a lot more than usual: nearly every day 9. Thoughts that you would be better off or of hurting yourself in some way: not at all Total score: 24 Source: Developed by Drs. Adis Stern, Kelsi Alegre, Casey Swenson and colleagues, with an educational micky from [employer]. Thrive Questionnaire Date Thrive assessed: 01/18/24 I am a: Patient What is your living situation today?: I do not have a steady places to live I am staying at a hotel Within the past 12 months, did the food you bought not last and you didn't have the money to get more?: Often true Within the past 12 months, did you worry whether your food would run out before you got money to buy more?: Often true Do you have trouble paying for medicines?: No Do you have trouble getting transportation to medical appointments?: No Do you have trouble paying your heating and electricity bill?: No Do you have trouble taking care of your child, family member or friend?: No Do you have trouble with day-to-day activities such as bathing, preparing meals, shopping, managing finances, etc.?: Yes Are you currently unemployed and looking for a job?: No Are you interested in more education?: No Please select the resources that you would like help with: Housing/M[facility], Food and Daily support Currently or been in a relationship where the following occur: No concerns reported THRIVE Score: 3 AUDIT C Alcohol Use Questionnaire (AUDIT-C) 1. How often do you have a drink containing alcohol?: Never 2. How many drinks containing alcohol do you have on a typical day when you are drinking?: 1 or 2 3. How often do you have six or more drinks on one occasion?: Never Total Score: 0 NANDA-7 AMB Questionnaire NANDA-7 Date NANDA - 7 assessed: 04/06/23 Feeling nervous, anxious, or on edge: 3 = Nearly every day Not being able to stop or control worryin = Nearly every day Worrying too much about different things: 3 = Nearly every day Trouble relaxin = Nearly every day Being so restless that it is hard to sit still: 3 = Nearly every day Becoming easily annoyed or irritable: 3 = Nearly every day Feeling afraid as if something awful might happen: 3 = Nearly every day Total NANDA-7 score (0-4 normal; 5-9 mild; 10-14 moderate; 15-21 severe): 21 Source: Developed by Drs. Adis Stern, Kelsi Alegre, Casey Swenson and colleagues, with an educational micky from [employer]. Review of Systems Const Reports as per HPI Physical exam (Primary Care) Vital Signs: Last Vital Signs Pulse 90 01/24/24 09:37 BP 138/88 01/24/24 09:37 Pulse Ox 94 01/24/24 09:37 Oxygen Delivery Method Room Air 01/24/24 09:37 BMI result Body Mass Index 49.7 Tobacco/Smoking Status: Tobacco use Status Tobacco use date assessed 04/06/23 01/24/24 09:37 Patient Tobacco Use Status Current everyday Tobacco 01/24/24 09:37 e-Cigarette/Vaping Use Never Used 01/24/24 09:37 PHQ-9: PHQ-9 Score PHQ-9: Total score 24 01/24/24 10:24 Thrive Assessment: Date of Thrive Assessment Date Thrive assessed 01/18/24 01/24/24 09:37 Currently or been in a relationship where the following occur: No concerns reported Const General: cooperative Nutritional Appearance: obese morbidly obese Orientation/consciousness: patient oriented x3 Resp Effort & Inspection: normal respiratory effort Auscultation: clear to auscultation bilaterally Cardio Rate: regular rate Rhythm: regular rhythm Heart sounds: S1 normal heart sound present and S2 normal heart sound present Neuro General: patient oriented x3 Extrem Right lower extremity: no edema Left lower extremity: no edema Psych Appearance: grossly normal Mental Status: mental status grossly normal Speech and movement: Normal speech and movement present Affect: normal affect Attitude: cooperative Thought process: Normal thought process present Thought content: Normal thought content present Insight: Good insight present (Psych) Judgement: Good judgement present (Psych) Coding Level of Care Code Est Pt Level 3 (10529) Diagnoses HTN (hypertension) I10 Assessment & Plan Assessment & Plan (1) HTN (hypertension): Code(s): I10 - Essential (primary) hypertension Category: Medical Plan: stable currently, encouraged labs drawn Plan The patient agreed to the use of a certified medical transcriptionist for this encounter. Scribed for KSENIA Retana by Kaylee Galdamez, certified medical transcriptionist, on 01/24/2024 at 10:20 EST.
[2024-01-24 09:37] VITALS: BP 138/88; PULSE 90; O2SAT 94; BMI 49.7
== END 2024-01-24 12:36 | disposition home or self-care (01) ==
PROVIDERS: PCP Nurse Practitioner Family; Visit Provider Nurse Practitioner Family
DX: I10 Essential (primary) hypertension (principal)

== ENCOUNTER 2024-02-01 15:33 | Outpatient (AMB) | payer OTHER, SELFPAY ==
--- NOTE | 2024-02-01 15:41 | HO.NEPHOV ---
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 She has long standing DM & she has a BMI of over 51.0. She has hypertension but denies CAD, carotid stenosis, CVA, CHF, PAD or NIRAV. She denies any new bone or back pain, excessive NSAID intake, H/O malignancy, H/O microscopic hematuria, recurrent sinusitis, epistaxis, hemoptysis, new joint swelling or any H/O auto immune diseases. She is on ACEI. She has been on PPI for a long time. She did not have any new systemic complaints at the time of this office visit. [facility] Medical History Asthma Anxiety HTN (hypertension) Dyslipidemia Uncontrolled diabetes mellitus Severe depression Insomnia Bipolar 1 disorder GERD (gastroesophageal reflux disease) Surgical History Hx of tubal ligation S/P cholecystectomy History of Family History Father Hypertension Diabetes Mother Mental health disorder Ovarian cancer Sister Mental health disorder Son No problems noted. Son No problems noted. Daughter No problems noted. Social History Housing: Apartment Alcohol intake: never Patient Tobacco Use Status: Current everyday Tobacco user Cigarettes Per Day: 10 Years Smoked: quit 09/13/2020 e-Cigarette/Vaping Use: Never Used Second Hand Smoke Exposure: Yes service: No Current occupational status: disabled Cognitive needs: No Hearing needs: No Vision needs: No Female Reproductive History Menstrual Age of Menarche: 10 Review of Systems Const All systems reviewed & are unremarkable except as noted in HPI and below Physical Exam Vital Signs: Last Vital Signs Pulse 73 02/01/24 15:43 BP 134/80 02/01/24 15:43 Pulse Ox 98 02/01/24 15:43 Oxygen Delivery Method Room Air 02/01/24 15:43 BMI result Body Mass Index 51.3 Const General: comfortable and no acute distress Orientation/consciousness: patient oriented x3 HEENT Head: Yes normocephalic Mouth: Normal oral and palatal mucosa present Eyes EOM: EOMs intact bilaterally Neck Neck: Yes supple Resp Auscultation: clear to auscultation bilaterally Cardio Jugular venous distension: no JVD Rate: regular rate Heart sounds: Murmur heart sound present GI Palpation (GI): Soft to palpation Auscultation: normal bowel sounds General: Yes no CVA tenderness Back/Spine/Pelvis Back: no CVA tenderness Skin General skin exam: no rashes or lesions noted Neuro General: patient oriented x3 and moves all extremities Extrem General: Yes no pedal edema Results Reviewed Nephrology Results: Hgb 13.9 g/dl (12.0-16.0) 01/24/24 WBC 7.0 X10*3/uL (4.8-10.8) 01/24/24 Plt Count 225 X10*3/uL (160-400) 01/24/24 Sodium 137 mmol/L (135-145) 01/24/24 Potassium 3.9 mmol/L (3.3-5.1) 01/24/24 Chloride 102 mmol/L (96-108) 01/24/24 Carbon Dioxide 24 mmol/L (22-29) 01/24/24 BUN 10 mg/dL (9-16) 01/24/24 Creatinine 1.02 mg/dL (0.5-1.4) 01/24/24 Calcium 10.5 mg/dL (8.4-10.2) H 01/24/24 Urine Protein 100 (2+) mg/dL (Neg-Trace) H 01/24/24 Urine Creatinine 51.08 mg/dL 01/24/24 Assessment & Plan Assessment & Plan (1) Proteinuria: Code(s): R80.9 - Proteinuria, unspecified Category: Medical Qualifiers: Proteinuria type: other Qualified Code(s): R80.8 - Other proteinuria Plan Nimisha likely has Diabetic nephropathy. Differential includes secondary FSGS from high BMI along with others. I have ordered W/U. If she has significant proteinuria and the work up is unyielding, she will need a renal biopsy. She needs to loose weight. I plan to maximize Jardiance and ACEI based on evolving data. She should maintain good hydration and avoids NSAID's. All these have been explained in detail. Answered all questions. Orders: Orders Anti DNA DS Antibody 6 Weeks R80.9 - Proteinuria, unspecified Neutrophil Cytoplasma Ab 6 Weeks R80.9 - Proteinuria, unspecified Myeloperoxidase Antibody 6 Weeks R80.9 - Proteinuria, unspecified Anti Glomerular Basement Memb 6 Weeks R80.9 - Proteinuria, unspecified Complement C3 6 Weeks R80.9 - Proteinuria, unspecified Immunofixation Pnl, Serum 6 Weeks R80.9 - Proteinuria, unspecified Phospholipase A2 Receptor Pnl 6 Weeks R80.9 - Proteinuria, unspecified Prothrombin Time INR 6 Weeks R80.9 - Proteinuria, unspecified Immunofixation, Random Urine 6 Weeks R80.9 - Proteinuria, unspecified Protein Creatinine Ratio, Ur 6 Weeks R80.9 - Proteinuria, unspecified Proteinase 3 PR3 Antibodies 6 Weeks R80.9 - Proteinuria, unspecified Complement C4 6 Weeks R80.9 - Proteinuria, unspecified Complete Blood Count Auto Diff 6 Weeks R80.9 - Proteinuria, unspecified Medications: New empagliflozin (Jardiance) 10 mg PO DAILY 30 tabs 5RF Changed From lisinopril 10 mg PO DAILY 90 tabs 1RF To lisinopril 10 mg (1/2 x 20 mg) PO DAILY 30 tabs 5RF Coding Level of Care Code New Pt Level 4 (49741) Diagnoses Other proteinuria R80.8 Proteinuria type: other
[2024-02-01 15:43] VITALS: BP 134/80; PULSE 73; O2SAT 98; BMI 51.3
== END 2024-02-01 16:20 | disposition home or self-care (01) ==
PROVIDERS: PCP Nurse Practitioner Family; Referring Provider Nurse Practitioner Family; Visit Provider Internal Medicine Nephrology
DX: R80.8 Other proteinuria (principal)
CPT/HCPCS: 99204

== ENCOUNTER → 2024-02-01 15:33 | Outpatient (BNVA) | payer OTHER, SELFPAY | PROVIDERS: PCP Nurse Practitioner Family; Referring Provider Nurse Practitioner Family; Visit Provider Internal Medicine Nephrology | DX: R80.8 Other proteinuria (principal) | CPT/HCPCS: 99202 ==

== ENCOUNTER 2024-03-15 09:51 | Outpatient (REF) | payer OTHER, SELFPAY ==
[2024-03-15 12:56] LABS: MANUAL DIFF FLAG NO; Urine Cytology See Pathology rpt
[2024-03-15 13:10] LABS: Basophils Percent Auto 0.5 % (0-2); Eosinophils Absolute Auto 0.2 X10*3/uL (0.0-0.4); Eosinophils Percent Auto 1.7 % (0-4); Hematocrit 39.5 % (37.0-47.0); Hemoglobin 13.3 g/dl (12.0-16.0); Imm Gran Abs Auto 0.02 X10*3/uL (0.00-0.03); Imm Gran Pct Auto 0.2 % (0.0-0.4); Lymphocytes Percent Auto 57.5 % (20-40); Mean Corpuscular HGB Conc 33.7 g/dl (31.0-35.0); Mean Corpuscular Hemoglobin 29.5 pg (27.0-33.0); Mean Corpuscular Volume 87.6 fL (80.0-98.0); Monocytes Absolute Auto 0.5 X10*3/uL (0.1-1.2); Monocytes Percent Auto 5.8 % (2-11); Neutrophils Percent Auto 34.3 % (45-73); Platelet Count 251 X10*3/uL (160-400); Red Blood Count 4.51 X10*6/uL (4.20-5.50); Red Cell Distribution Width 13.1 % (11.0-16.0); White Blood Count 8.6 X10*3/uL (4.8-10.8)
[2024-03-15 13:16] LABS: Appearance Urine Clear; Color Urine Yellow; Glucose Urine UA >=1000 mg/dL (Negative); Leukocyte Esterase Urine Small (1+) (Negative); Nitrite Urine Negative (Negative); PH 5.5 (5.0-9.0); Specific Gravity - Urine 1.025 (1.005-1.025); UMIC TRIGGER UACC YES; Urine Blood Negative (Negative); Urine Ketones Negative (Negative); Urine Protein 100 (2+) mg/dL (Neg-Trace)
[2024-03-15 13:22] LABS: Bacteria Urine 1+ (None Seen); Hyaline Casts Urine 0-2 /LPF (0-2); RBC Urine 0-2 /HPF (0-2); UACC Culture Trigger YES; WBC Urine >50 /HPF (0-5)
[2024-03-15 13:39] LABS: INTERNATIONAL NORM RATIO 0.9 (0.9-1.1); Prothrombin Time 10.9 SEC (10.9-12.4)
[2024-03-15 13:48] LABS: Creatinine Urine 155.89 mg/dL; Protein/Creatinine Ratio, Ur 0.45 (<0.2); Total Protein Urine Random 70 mg/dL (<12)
[2024-03-15 13:55] LABS: Parathyroid Hormone Intact 50.1 pg/mL (8.7-77.1)
[2024-03-18 14:59] LABS: Calcium, Ionized 5.3 mg/dL (4.7-5.5)
[2024-03-18 16:38] LABS: Anti DNA DS Antibody 18 IU/mL; Anti Glomerular Basement Memb <1.0 AI; Myeloperoxidase Antibody <1.0 AI; Proteinase 3 PR3 Antibodies <1.0 AI
[2024-03-18 20:54] LABS: Complement C3 145 mg/dL (83-193)
[2024-03-19 12:39] LABS: IgA 480 mg/dL (47-310); IgG 1355 mg/dL (600-1640); IgM 62 mg/dL (50-300)
[2024-03-20 14:34] LABS: Neutrophil Cyto Ab Screen NEGATIVE (NEGATIVE)
[2024-03-21 23:38] LABS: Phospholipase A2 IgG ELISA <4 RU/mL; Phospholipase A2 IgG IFA NEGATIVE (NEGATIVE)
== END 2024-03-15 09:52 | disposition home or self-care (01) ==
LOC: HO.HMGCLDS 09:51
PROVIDERS: PCP Nurse Practitioner Family; Referring Provider Internal Medicine Nephrology; Visit Provider Nurse Practitioner Family
DX: Z01.818 Encounter for other preprocedural examination (principal); E66.01 Morbid (severe) obesity due to excess calories; R31.29 Other microscopic hematuria; E83.52 Hypercalcemia; R80.9 Proteinuria, unspecified; K91.5 Postcholecystectomy syndrome
CPT/HCPCS: 36415; 81001; 81003; 82330; 82570; 82784; 83520; 83970; 84156; 85025; 85610; 86021; 86036; 86160; 86225; 86255; 86334; 86335; 87086; 87147; 88112; 99202

== ENCOUNTER 2024-03-15 15:50 | Outpatient (AMB) | payer OTHER, SELFPAY ==
[2024-03-15 16:00] VITALS: BP 171/79; PULSE 71; BMI 51.9
--- NOTE | 2024-03-15 16:00 | A.OFFVIS_ITS ---
Vital Signs 3 03/15/24 16:00 Height 4 ft 11 in Weight 257 lb 0.944 oz BMI 51.9 BP 171/79 H Blood Pressure Location Lt brachial Position Sitting Pulse 71 Intake Visit Reasons: Pre Colonoscopy/Nancy pt Intake Note: Nimisha presents in office today for EGD and colonoscopy consult. CC: Patient c/o abdominal pain sometimes, vomiting 1-2 times every other day, and diarrhea every day after she eats. She also reports trouble swallowing sometimes and GERD. Analytical Lab Technician Required: No Accompanied by: Self / Same As Patient Allergies azithromycin Allergy (Unknown, Verified 03/15/24 16:13) (states she can take a Zpack) otherwise, throat closes erythromycin base [ERYTHROMYCIN BASE] Allergy (Unknown, Verified 03/15/24 16:13) THROAT CLOSES UP lamotrigine [From LAMICTAL] Allergy (Unknown, Verified 03/15/24 16:13) ANAPHYLAXIS Erythromycin Allergy (Unknown, Uncoded 01/24/24 10:22) anaphylaxis HPI HPI Pre Colonoscopy/Nancy pt: Details: 46-year-old female here for A PREPROCEDURAL MEETING TO DISCUSS A SCREENING COLONOSCOPY. She is referred by Nile Pruett of [facility] [place]. PMX Asthma Morbid obesity Hypertension High cholesterol Diabetes Bipolar disorder/depression/anxiety Smoker Low back pain Knee pain Swelling of the lower extremities History of acute kidney injury Diabetic gastroparesis * SURGICAL HISTORY section x3 Tubal ligation Cholecystectomy * ALLERGIES Zithromax Erythromycin Lamictal * [employer] LABS: Laboratory Tests 01/24/24 03/15/24 10:38 10:03 WBC 8.6 Hgb 13.3 Hct 39.5 Plt Count 251 Total Bilirubin 0.4 AST 19 ALT 15 Alkaline Phosphatase 82 TSH 2.51 GASTRIC EMPTYING STUDY 11/01/21? IMPRESSION: Abnormal study. There is moderate to marked abnormal retention of solid food in the stomach at 4 hours. ? TODAY'S VISIT This is her 1st colonoscopy. Patient was sent Reglan by her primary care provider and this resolved her sx of N/V. She does have constant post prandial diarrhea since her GB was removed. Never been on cholestyramine. Will start. Her asthma is well controlled no cardiac problems There are no prior problems with anesthesia or sedation. NO ID problems. There is no FHX of CRC or polyps. Return office visit after her procedure. [facility] Medical History (Updated 03/15/24 @ 16:29 by PHILLIP Reis) Contusion of left foot Microalbuminuria Knee pain, left Lower back pain Swelling of lower extremity Shortness of breath Uncontrolled diabetes mellitus Hypotension Vulvovaginitis Leg swelling EMANUEL (acute kidney injury) Nausea Encounter for screening colonoscopy Dermatitis Family history of ovarian cancer Candidal vulvovaginitis COVID-19 Morbid obesity with BMI of 50.0-59.9, adult Personal history of nicotine dependence Asthma Anxiety HTN (hypertension) Dyslipidemia Severe depression Insomnia Bipolar 1 disorder GERD (gastroesophageal reflux disease) Surgical History Hx of tubal ligation S/P cholecystectomy History of Family History Father Hypertension Diabetes Mother Mental health disorder Ovarian cancer Sister Mental health disorder Son No problems noted. Son No problems noted. Daughter No problems noted. Social History Housing: Apartment Alcohol intake: never Patient Tobacco Use Status: Current everyday Tobacco user Cigarettes Per Day: 10 Years Smoked: quit 09/13/2020 e-Cigarette/Vaping Use: Never Used Second Hand Smoke Exposure: Yes service: No Current occupational status: disabled Cognitive needs: No Hearing needs: No Vision needs: No Female Reproductive History Menstrual Age of Menarche: 10 Review of Systems Const Denies fatigue, Denies fever(s), Denies night sweats, Denies poor appetite and Denies weight loss ENT Reports Normal hearing present, Denies dysphagia, Denies odynophagia, Denies throat swelling and Denies tongue swelling Card Reports no additional complaints Resp Reports no additional complaints GI Details: Denies abdominal pain, Denies melena, Denies bloating, Denies hematochezia, Denies constipation, Denies GI cramping, Denies dysphagia, Denies excessive flatus, Reports early satiety, Denies heartburn, Reports diarrhea, Denies nausea, Denies odynophagia, Denies vomiting and Denies hematemesis Skin/Breast Denies pruritus, Denies lesions, Denies rash and Denies jaundice Neuro Reports Normal hearing present and Denies Abnormal speech present Endo Denies fatigue Aller/Immun Denies throat swelling and Denies tongue swelling Physical Exam Vital Signs: Last Vital Signs Pulse 71 03/15/24 16:00 BP 171/79 H 03/15/24 16:00 BMI result Body Mass Index 51.9 Const General: cooperative, no acute distress, well developed and well groomed Nutritional Appearance: well nourished and obese morbidly obese Orientation/consciousness: oriented to person, oriented to place and oriented to time Limitations: No language barrier HEENT Head: Yes normocephalic and Yes atraumatic Eyes General: appearance normal, both eyes and all related structures Pupils: Equal, round and reactive pupils present Neck Neck: Yes normal visual inspection and Yes no lymphadenopathy Thyroid: Thyroid normal Neck images: 2 1. large dark scaly lesion Resp Effort & Inspection: normal respiratory effort and able to speak in complete sentences Auscultation: clear to auscultation bilaterally Cardio Rate: regular rate Rhythm: regular rhythm Heart sounds: Normal, physiologic split S2 sound present Peripheral pulses: radial pulses present and posterior tibial pulses present GI Inspection: No distended, Yes Abdominal panniculus present, Yes obesity, Yes scar and Yes striae Palpation (GI): Soft to palpation, nontender, no guarding, not rigid and No hepatosplenomegaly present Percussion: Yes normal to percussion Auscultation: normal bowel sounds Rectal Exam - Female: deferred Abdomen image: 2 1. surgical scars 2. Skin General skin exam: no rashes or lesions noted, turgor normal, skin not dry, no jaundice, No spider nevi and no striae Rashes: no rashes Nails: normal Neuro General: oriented to person, oriented to place and oriented to time Cranial nerves: Yes Equal, round and reactive pupils present and Yes Normal hearing present Speech: No Abnormal speech present Extrem General: Yes normal to inspection, No clubbing, No cyanosis and No edema Psych Appearance: grossly normal and well kempt Mental Status: mental status grossly normal Speech and movement: Normal speech and movement present Affect: normal affect Attitude: cooperative Thought process: Normal thought process present and not confabulating Thought content: Normal thought content present Insight: Good insight present (Psych) Judgement: Good judgement present (Psych) Assessment & Plan Assessment & Plan (1) Preoperative examination: Code(s): Z01.818 - Encounter for other preprocedural examination Category: Medical (2) Morbid obesity due to excess calories: Code(s): E66.01 - Morbid (severe) obesity due to excess calories Category: Medical (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 Patient was sent Reglan by her primary care provider and this resolved her sx of N/V. She does have constant post prandial diarrhea since her GB was removed. Never been on cholestyramine. Will start. Her asthma is well controlled no cardiac problems There are no prior problems with anesthesia or sedation. NO ID problems. There is no FHX of CRC or polyps. Return office visit after her procedure. Orders: Orders 2 Colonoscopy - GI Use Only Today E66.01 - Morbid (severe) obesity due to excess calories, Z01.818 - Encounter for other preprocedural examination Medications: New 2 polyethylene glycol 3350 (Miralax) 238 grams PO ONCE 238 grams 0RF colonoscopy prep 1 day bisacodyl (Dulcolax (bisacodyl)) 10 mg (2 x 5 mg) PO BEDTIME 4 tabs 0RF 2 days cholestyramine-aspartame 4 gram no meds 1 hr before/4-6 hr after dose 4 grams PO BID 60 ea 6RF K91.5 - Postcholecystectomy syndrome Coding Level of Care Code New Pt Level 3 (85819) Diagnoses Preoperative examination Z01.818 Morbid obesity due to excess calories E66.01 Post-cholecystectomy syndrome K91.5
== END 2024-03-15 16:35 | disposition home or self-care (01) ==
PROVIDERS: PCP Nurse Practitioner Family; Visit Provider Nurse Practitioner
DX: K91.5 Postcholecystectomy syndrome (principal); Z90.49 Acquired absence of other specified parts of digestive tract; Z12.11 Encounter for screening for malignant neoplasm of colon
CPT/HCPCS: 99203

== ENCOUNTER 2024-03-20 09:11 | Outpatient (REF) | payer OTHER, SELFPAY ==
--- NOTE | ~2024-03-20 | CT_ITS ---
EXAMINATION: CT ABDOMEN PELVIS UROGRAPHY WITHOUT THEN WITH IV CONTRAST HISTORY: R31.29 - Other microscopic hematuria COMPARISON: Correlation is made with an abdominal ultrasound dated 05/15/2023. TECHNIQUE: CT scan of the abdomen and pelvis was performed before and after the intravenous administration of 85 mL Omnipaque 350. Postcontrast images were obtained using a split bolus technique. Coronal and sagittal reformatted images were generated and reviewed. Oral contrast material was not administered per department protocol. This CT exam was performed with one or more of the following dose reduction techniques: automated exposure control, adjustment of the mA and/or kV according to patient size, use of iterative reconstruction technique. DLP: 1344 mGy-cm ABDOMEN: LOWER CHEST: The visualized lung bases are clear. There is no pleural effusion. CARDIOVASCULATURE: The heart is normal in size. There is no pericardial effusion. LIVER: The liver is normal in size and contour. No liver mass is identified. The hepatic and portal veins are patent. GALLBLADDER / BILE DUCTS: The gallbladder is surgically absent. There is no intra or extrahepatic biliary ductal dilatation. SPLEEN: The spleen is normal in size. No focal splenic lesion is identified. PANCREAS: The pancreas is unremarkable in appearance. ADRENAL GLANDS: Within normal limits. KIDNEYS/RETROPERITONEUM: There is a punctate nonobstructing calculus in the interpolar region of the left kidney. No right renal calculi are identified. There is no hydronephrosis or hydroureter. No ureteral calculi are identified. There is a 1.8 cm cyst at the lower pole of the right kidney. The intrarenal collecting systems are unremarkable in appearance. The ureters are normal in caliber. However, the ureters are not opacified, limiting evaluation. LYMPH NODES: No abdominal or pelvic lymphadenopathy. VASCULATURE: The abdominal aorta is normal in caliber. MESENTERY/PERITONEUM: No free fluid. No masses. There is no free intraperitoneal gas. STOMACH: There is debris in the stomach. SMALL BOWEL: The small bowel is normal in caliber. COLON: There is a large amount of stool throughout the colon. APPENDIX: Normal. URINARY BLADDER/PELVIC ORGANS: The urinary bladder is nondistended, limiting evaluation. The uterus is unremarkable. BONES / SOFT TISSUES: No suspicious bony or soft tissue abnormalities. CT/CT urogram IMPRESSION: Punctate nonobstructing left renal calculus. No hydronephrosis. Unremarkable bilateral renal collecting systems. While the ureters are not dilated, with are not opacified with contrast material, limiting evaluation. Electronically signed by: Adis Bonds MD 03/22/2024 07:38 AM [facility] [place]
[2024-03-20] MEDS: iohexoL 350 MG/ML 100 ML INFUS..BTL 85 ML IV (10:55)
[2024-03-20 12:09] LABS: Creatinine POC 1.2 mg/dL (0.5-1.4); GFR POC 59
== END 2024-03-20 09:12 | disposition home or self-care (01) ==
LOC: HO.CT 09:11
PROVIDERS: PCP Nurse Practitioner Family; Visit Provider Nurse Practitioner Family
DX: R31.29 Other microscopic hematuria (principal)
CPT/HCPCS: 74178; 82565; Q9967

== ENCOUNTER → 2024-03-20 09:13 | Outpatient (BNV) | payer OTHER, SELFPAY | PROVIDERS: PCP Nurse Practitioner Family; Visit Provider Radiology Diagnostic Radiology | DX: R31.29 Other microscopic hematuria (principal) | CPT/HCPCS: 74178 ==

== ENCOUNTER 2024-04-05 11:18 | Outpatient (REF) | payer OTHER, SELFPAY ==
--- NOTE | ~2024-04-05 | CT_ITS ---
CLINICAL HISTORY: Z87.891 - Personal history of nicotine dependence CT lung cancer screening (LDCT) Comparison: None Technique: Axial CT images of the chest using low-dose technique. Referring provider counseled the patient on shared decision-making for LDCT screening. Additional counseling was provided on smoking cessation. Effective radiation dose total: DLP 72.3 mGycm, CTDIvol 2.5 mGy. Findings: Lung: No pulmonary nodules noted. No significant emphysematous changes. There is mild coronary artery disease. Limited upper abdomen: Unremarkable Other: None Impression: Category 1: Normal; continue annual screening Category 1: Normal; continue annual screening Category 2: Benign appearance or behavior, continue annual screening Category 3: Probably benign, [address] recommended Category 4A: Suspicious, [address] recommended; may consider PET/CT Category 4B: Suspicious, Additional diagnostics and/or tissue sampling recommended Category 4X: Suspicious, Additional diagnostics and/or tissue sampling recommended Category 0: Recalls (incomplete screen due to Incomplete coverage, Noise, Respiratory motion, Expiration, Obscured by acute abnormality) This document has been electronically signed by: Karthik Trevizo MD on 04/08/2024 09:10:34
== END 2024-04-05 11:19 | disposition home or self-care (01) ==
LOC: HO.CT 11:18
PROVIDERS: PCP Nurse Practitioner Family; Visit Provider Physician Assistant Medical
DX: Z12.2 Encounter for screening for malignant neoplasm of respiratory organs (principal); Z87.891 Personal history of nicotine dependence
CPT/HCPCS: 71271

== ENCOUNTER → 2024-04-05 11:20 | Outpatient (BNV) | payer OTHER, SELFPAY | PROVIDERS: PCP Nurse Practitioner Family; Visit Provider Radiology Diagnostic Radiology | DX: Z87.891 Personal history of nicotine dependence (principal) | CPT/HCPCS: 71271 ==

== ENCOUNTER 2024-04-18 15:12 | Outpatient (AMB) | payer OTHER, SELFPAY ==
--- NOTE | 2024-04-18 15:03 | HO.NEPHOV_ITS ---
Vital Signs 04/18/24 15:06 Height 4 ft 11 in Weight 257 lb BMI 51.9 Intake Visit Reasons: 2mon follow up w/labs/ Conf Monitoring And Evaluation Advisor Required: No Accompanied by: Self / Same As Patient Allergies azithromycin Allergy (Unknown, Verified 04/18/24 15:04) (states she can take a Zpack) otherwise, throat closes erythromycin base [ERYTHROMYCIN BASE] Allergy (Unknown, Verified 04/18/24 15:04) THROAT CLOSES UP lamotrigine [From LAMICTAL] Allergy (Unknown, Verified 04/18/24 15:04) ANAPHYLAXIS Erythromycin Allergy (Unknown, Uncoded 01/24/24 10:22) anaphylaxis HPI Comments Details: Nimisha was seen in F/U by [facility] for rise in serum creatinine as well as proteinuria. She has long standing DM & she has a BMI of over 51.0. She has hypertension but denies CAD, carotid stenosis, CVA, CHF, PAD or NIRAV. She denies any new bone or back pain, excessive NSAID intake, H/O malignancy, H/O microscopic hematuria, recurrent sinusitis, epistaxis, hemoptysis, new joint swelling or any H/O auto immune diseases. She is on ACEI. She has been on PPI for a long time. She did not have any new systemic complaints at the time of this office visit. [facility] Medical History (Updated 04/18/24 @ 15:22 by Domenic Krishnamurthy MD) Bipolar 1 disorder Anxiety Insomnia Uncontrolled diabetes mellitus Proteinuria HTN (hypertension) Dyslipidemia GERD (gastroesophageal reflux disease) Gastroparesis Asthma Personal history of nicotine dependence Morbid obesity with BMI of 50.0-59.9, adult Vulvovaginitis Nausea Dermatitis Family history of ovarian cancer Surgical History History of cholecystectomy (~2000) History of tubal ligation (~2008) History of Family History Father Hypertension Diabetes Mother Mental health disorder Ovarian cancer Sister Mental health disorder Son No problems noted. Son No problems noted. Daughter No problems noted. Social History Housing: Apartment Alcohol intake: never Patient Tobacco Use Status: Current everyday Tobacco user Cigarettes Per Day: 10 Years Smoked: (onset 11yo, 1ppd x 33yrs, quit from 4971-4415, now 5-7cig/day - 30pyh) e-Cigarette/Vaping Use: Never Used Second Hand Smoke Exposure: Yes service: No Current occupational status: disabled Cognitive needs: No Hearing needs: No Vision needs: No Female Reproductive History Menstrual Age of Menarche: 10 Review of Systems Const All systems reviewed & are unremarkable except as noted in HPI and below Physical Exam Vital Signs: BMI result Body Mass Index 51.9 Telehealth Telehealth Telehealth Platform: Telephone Location of provider rendering services: practice address Location of patient: address on file Patient Identification confirmed using: Name, : Yes Telehealth method: voice only Patient verbally consented to treatment: Yes Patient verbally consented to billing insurance company: Yes Patient informed of any privacy concerns related to visit: No Minutes spent on Phone/Video with Pt.: 10 Results Reviewed Nephrology Results: Hgb 13.3 g/dl (12.0-16.0) 03/15/24 WBC 8.6 X10*3/uL (4.8-10.8) 03/15/24 Plt Count 251 X10*3/uL (160-400) 03/15/24 PTH Intact 50.1 pg/mL (8.7-77.1) 03/15/24 Urine Protein 100 (2+) mg/dL (Neg-Trace) H 03/15/24 Urine Creatinine 155.89 mg/dL 03/15/24 Protein/Creatinin Ratio 0.45 (<0.2) H 03/15/24 Assessment & Plan Assessment & Plan (1) HTN (hypertension): Code(s): I10 - Essential (primary) hypertension Category: Medical Qualifiers: Hypertension type: primary hypertension Qualified Code(s): I10 - Essential (primary) hypertension (2) Proteinuria: Comment: (likely has Diabetic nephropathy - per Nephrology - Dr. Krishnamurthy 01/31/25) Code(s): R80.9 - Proteinuria, unspecified Category: Medical Qualifiers: Proteinuria type: other Qualified Code(s): R80.8 - Other proteinuria (3) Renal calculus: Code(s): N20.0 - Calculus of kidney Category: Medical Plan Nimisha likely has Diabetic nephropathy. Differential includes secondary FSGS from high BMI along with others. Her W/U was reviewed. she does not need a renal biopsy now but may need in the future. She needs to loose weight. I increased her Jardiance to 25 mg daily. She was asked to cut back on insulin dose if her blood sugar drops when she starts on higher dose of Jardiance. I plan to increase ACEI, with time based on evolving data. She is going to see Urology for renal calculus. She will be a candidate for HCTZ and or K citrate in the future. Her serum immunofixation showed normal pattern even though her IgA levels were 480. She should maintain good hydration and avoids NSAID's. All these have been explained in detail. Answered all questions. Orders: Orders Electrolytes 6 Weeks R80.8 - Other proteinuria Creatinine 6 Weeks R80.8 - Other proteinuria Protein Creatinine Ratio, Ur 6 Weeks R80.8 - Other proteinuria Calcium 6 Weeks R80.8 - Other proteinuria Blood Urea Nitrogen 6 Weeks R80.8 - Other proteinuria Medications: Changed From empagliflozin (Jardiance) 10 mg PO DAILY 30 tabs 5RF To empagliflozin 10 mg (0.4 x 25 mg) PO DAILY 30 tabs 10RF Coding Level of Care Code Tele Est Pt Level 4 (25526) Diagnoses Primary hypertension I10 Hypertension type: primary hypertension Other proteinuria R80.8 Proteinuria type: other Renal calculus N20.0
[2024-04-18 15:06] VITALS: BMI 51.9
== END 2024-04-18 16:05 | disposition home or self-care (01) ==
PROVIDERS: PCP Nurse Practitioner Family; Visit Provider Internal Medicine Nephrology
DX: I10 Essential (primary) hypertension (principal); R80.8 Other proteinuria; N20.0 Calculus of kidney
CPT/HCPCS: 99214

== ENCOUNTER → 2024-04-18 15:12 | Outpatient (BNVA) | payer OTHER, SELFPAY | PROVIDERS: PCP Nurse Practitioner Family; Visit Provider Internal Medicine Nephrology ==

== ENCOUNTER 2024-05-22 14:04 | Outpatient (AMB) | payer OTHER, SELFPAY ==
--- NOTE | 2024-05-22 14:06 | MHC.OFFVIS ---
Intake Visit Reasons: microscopic hematuria Intake Note: Patient is present for MICROSCOPIC HEMATURIA Urology Medication:NONE Antibiotic Allergy:AZITHROMYCIN,ERTHROMYCIN Blood Thinner:NONE Conche Operator Required: No Allergies azithromycin Allergy (Unknown, Verified 05/22/24 14:31) (states she can take a Zpack) otherwise, throat closes erythromycin base [ERYTHROMYCIN BASE] Allergy (Unknown, Verified 05/22/24 14:31) THROAT CLOSES UP lamotrigine [From LAMICTAL] Allergy (Unknown, Verified 05/22/24 14:31) ANAPHYLAXIS Erythromycin Allergy (Unknown, Uncoded 05/22/24 14:31) anaphylaxis Medication List - Last Reconciled 05/22/24 by AIRAM Cuevas- alprazolam 1 mg PO TID PRN atorvastatin 80 mg PO BEDTIME benztropine mg PO BID betamethasone dipropionate 0.05% 1 appl topical DAILY PRN 30 days betamethasone valerate 0.1% 1 appl topical BID PRN blood sugar diagnostic As directed buspirone 30 mg PO BID cholecalciferol (vitamin D3) 50 mcg PO DAILY 90 days cholestyramine-aspartame 4 gram 4 grams PO BID empagliflozin 25 mg PO DAILY escitalopram oxalate 20 mg PO DAILY gabapentin 600 mg PO BID 90 days glucagon 3 mg/actuation (Baqsimi) mg intranasal PRN insulin regular hum U-500 conc 75 units subcut TID lancets As directed lisinopril 10 mg (1/2 x 20 mg) PO DAILY mirtazapine 30 mg PO BEDTIME multivitamin 1 tab PO DAILY pantoprazole 40 mg PO BID 90 days pen needle, diabetic As directed risperidone 3 mg PO BEDTIME semaglutide (Ozempic) mg subcut HPI Comments Details: Nimisha is a very pleasant 48-year-old female patient of Dr. Dotson. She has a past medical history of bipolar disorder, anxiety, insomnia, uncontrolled diabetes, proteinuria, hypertension, dyslipidemia, GERD, gastroparesis, asthma, vulvodynia, and dermatitis. She presents to the office today as a new patient for microscopic hematuria. In discussion with the patient today she reports following up with her PCP at which time she was noted to have microscopic hematuria and recommendations were made for urology referral for further assessment evaluation. She reports recently having had CT urogram performed. When asked she does report a longstanding history of nicotine dependence for over 35 years. She reports she had been smoking approximally 1 pack of cigarettes per day however over the last 1-2 years has been trying to limit nicotine dependence and smokes 5-7 cigarettes a day. In office urinalysis today notes no microscopic hematuria. She denies any previous history of workplace chemical exposure. We discussed reasons for blood in the urine may include but are not limited to kidney stones, cancer in the urinary tract, kidney stone disease or inflammatory conditions of the urinary tract. I have discussed workup to include cystoscopy evaluation. CT 04/06 notes punctate nonobstructing left renal calculus. No hydronephrosis noted bilaterally. Unremarkable bilateral renal collecting systems. She otherwise denies any bothersome urinary issues. She denies urinary urgency, urinary frequency, incontinence, nocturia, hematuria, dysuria, foul smelling urine, changes to urinary stream, flank pain, fever, and or chills. She is happy with her current voiding parameters. She reports feeling microscopic hematuria was related to recent urinary tract infection. In review of patients chart urine culture 04/06 group B strep. Patient denies history of recurrent urinary tract infections. 04/06 Urine Cytology Negative for high-grade urothelial carcinoma. She otherwise offers no other issues or concerns at this time. [facility] Medical History Bipolar 1 disorder Anxiety Insomnia Uncontrolled diabetes mellitus Proteinuria HTN (hypertension) Dyslipidemia GERD (gastroesophageal reflux disease) Gastroparesis Asthma Personal history of nicotine dependence Morbid obesity with BMI of 50.0-59.9, adult Vulvovaginitis Nausea Dermatitis Family history of ovarian cancer Surgical History History of cholecystectomy (~2000) History of tubal ligation (~2008) History of Family History Father Hypertension Diabetes Mother Mental health disorder Ovarian cancer Sister Mental health disorder Son No problems noted. Son No problems noted. Daughter No problems noted. Social History Housing: Apartment Alcohol intake: never Patient Tobacco Use Status: Current everyday Tobacco user Cigarettes Per Day: 10 Years Smoked: (onset 11yo, 1ppd x 33yrs, quit from 7933-2612, now 5-7cig/day - 30pyh) e-Cigarette/Vaping Use: Never Used Second Hand Smoke Exposure: Yes service: No Current occupational status: disabled Cognitive needs: No Hearing needs: No Vision needs: No Female Reproductive History Menstrual Age of Menarche: 10 Review of Systems Const Reports no additional complaints Eyes Reports no additional complaints ENT Reports no additional complaints Card Reports as per [facility] Resp Reports as per [facility] GI Reports as per HPI Reports as per HPI Musc Reports no additional complaints Skin/Breast Reports as per HPI Neuro Reports as per HPI Psych Reports as per HPI Endo Reports as per HPI David/Lymph Reports no additional complaints Aller/Immun Reports no additional complaints Physical Exam Const General: cooperative, comfortable, no acute distress, well developed, alert and awake Nutritional Appearance: overweight Orientation/consciousness: patient oriented x3 Limitations: no limitations HEENT Head: Yes normal to inspection, Yes normocephalic and Yes atraumatic Ears: hearing grossly normal bilaterally Eyes General: appearance normal, both eyes and all related structures Neck Neck: Yes normal visual inspection and Yes trachea midline Chest Chest palpation & inspection: normal inspection of the chest Resp Effort & Inspection: normal respiratory effort and able to speak in complete sentences Cardio Rate: regular rate GI Inspection: Yes normal to inspection General: Yes no CVA tenderness Back/Spine/Pelvis Back: no CVA tenderness Skin General skin exam: no rashes or lesions noted Neuro General: patient oriented x3 Extrem General: Yes normal to inspection Psych Appearance: grossly normal and well kempt Mental Status: mental status grossly normal Speech and movement: Normal speech and movement present and Clear speech present Affect: normal affect Attitude: cooperative Thought process: Normal thought process present Thought content: Normal thought content present Insight: Fair insight present (Psych) Judgement: Fair judgement present (Psych) Results AMB Urinalysis, Automated UA Leukoctes 0 Mare/uL Last Edit by ABE Delacruz on 05/22/24 14:20 UA Nitrite Negative Last Edit by ABE Delacruz on 05/22/24 14:20 UA Urobilinogen 3.5 mg/dL Last Edit by ABE Delacruz on 05/22/24 14:20 UA Protein 15 mg/dL Last Edit by ABE Delacruz on 05/22/24 14:20 UA pH 5.5 Last Edit by ABE Delacruz on 05/22/24 14:20 UA Blood 0 Logan/uL Last Edit by ABE Delacruz on 05/22/24 14:20 UA Specific [place] 1.015 Last Edit by ABE Delacruz on 05/22/24 14:20 UA Ketone Negative Last Edit by ABE Delacruz on 05/22/24 14:20 UA Bilirubin 0 mg/dL Last Edit by ABE Delacruz on 05/22/24 14:20 UA Glucose 60 mg/dL Last Edit by ABE Delacruz on 05/22/24 14:20 Results Reviewed Results Reviewed: Laboratory Last Values Urine pH (Auto) 5.5 05/22/24 14:19 Specific [place] (Auto) 1.015 05/22/24 14:19 Urine Protein (Auto) 15 mg/dL 05/22/24 14:19 Glucose (UA)(Auto) 60 mg/dL 05/22/24 14:19 Urine Ketones (Auto) Negative 05/22/24 14:19 Urine Blood (Auto) 0 Logan/uL 05/22/24 14:19 Urine Nitrite (Auto) Negative 05/22/24 14:19 Urine Bilirubin (Auto) 0 mg/dL 05/22/24 14:19 Urine Urobilinogen (Auto) 3.5 mg/dL 05/22/24 14:19 Leukocyte Esterase (Auto) 0 Mare/uL 05/22/24 14:19 Date of Service: 03/20/24 Procedure(s): CT urogram ABDOMEN: LOWER CHEST: The visualized lung bases are clear. There is no pleural effusion. CARDIOVASCULATURE: The heart is normal in size. There is no pericardial effusion. LIVER: The liver is normal in size and contour. No liver mass is identified. The hepatic and portal veins are patent. GALLBLADDER / BILE DUCTS: The gallbladder is surgically absent. There is no intra or extrahepatic biliary ductal dilatation. SPLEEN: The spleen is normal in size. No focal splenic lesion is identified. PANCREAS: The pancreas is unremarkable in appearance. ADRENAL GLANDS: Within normal limits. KIDNEYS/RETROPERITONEUM: There is a punctate nonobstructing calculus in the interpolar region of the left kidney. No right renal calculi are identified. There is no hydronephrosis or hydroureter. No ureteral calculi are identified. There is a 1.8 cm cyst at the lower pole of the right kidney. The intrarenal collecting systems are unremarkable in appearance. The ureters are normal in caliber. However, the ureters are not opacified, limiting evaluation. LYMPH NODES: No abdominal or pelvic lymphadenopathy. VASCULATURE: The abdominal aorta is normal in caliber. MESENTERY/PERITONEUM: No free fluid. No masses. There is no free intraperitoneal gas. STOMACH: There is debris in the stomach. SMALL BOWEL: The small bowel is normal in caliber. COLON: There is a large amount of stool throughout the colon. APPENDIX: Normal. URINARY BLADDER/PELVIC ORGANS: The urinary bladder is nondistended, limiting evaluation. The uterus is unremarkable. BONES / SOFT TISSUES: No suspicious bony or soft tissue abnormalities. IMPRESSION: Punctate nonobstructing left renal calculus. No hydronephrosis. Unremarkable bilateral renal collecting systems. While the ureters are not dilated, with are not opacified with contrast material, limiting evaluation. Assessment & Plan Assessment & Plan (1) Renal calculus: Code(s): N20.0 - Calculus of kidney Category: Medical (2) Microscopic hematuria: Comment: (blood on 05/15/23 & 01/24/24 UA - No blood on 03/15/24 UA) Code(s): R31.29 - Other microscopic hematuria Category: Medical (3) Nicotine dependence: Code(s): F17.200 - Nicotine dependence, unspecified, uncomplicated Category: Medical (4) History of urinary tract infection: Code(s): Z87.440 - Personal history of urinary (tract) infections Category: Medical Plan In office urinalysis results reviewed with the patient today; as noted above; will send for urine cytology. Recent CT results reviewed with the patient today; as noted above. Previous urine cytology results as well as urine culture results were reviewed with the patient today; as noted above. We discussed at length potential causes of microscopic hematuria as well as further workup to include in office cystoscopy She currently denies any bothersome urinary issues or concerns. She reports be happy with current voiding parameters. We discussed at length the importance of managing diabetes for improvement in overall health and well-being. We discussed importance of adequate hydration relation to nephrolithiasis as well as overall health and well-being. Will continue with surveillance monitoring at this time Follow-up in 3 months; or sooner with any issues, concerns, and or questions. Orders: Orders AMB Urinalysis Automated Today Z13.9 - Encounter for screening, unspecified Patient Instructions: The patient had an opportunity to ask questions regarding the treatment plan. All questions were answered. Physical exam, labs, and imaging were discussed and reviewed in detail. As well as risks, benefits, and discussion of treatment choices. No major barriers to understanding were identified. The patient expressed understanding and agreement with the above treatment plan. The patient was made aware they should contact our office by phone for worsening of their current condition, the appearance of new symptoms, or with any questions or concerns. Compliance is encouraged with any medications and follow up testing that is ordered. It is a privilege to be allowed the opportunity to participate in? your urological care.? Again, if you have any questions or concerns If you have any questions or concerns please do not hesitate to contact me. The office is [phone]. This note is constructed using voice recognition software. While every effort has been made to ensure accuracy heat treater helper errors may have been included. Yours sincerely, KSENIA Cuevas Coding Level of Care Code New Pt Level 3 (16313) Diagnoses Renal calculus N20.0 Microscopic hematuria R31.29 Nicotine dependence F17.200 History of urinary tract infection Z87.440
== END 2024-05-22 14:36 | disposition home or self-care (01) ==
LOC: HO.HUSH 14:05
PROVIDERS: PCP Nurse Practitioner Family; Visit Provider Nurse Practitioner Family
DX: N20.0 Calculus of kidney (principal); R31.29 Other microscopic hematuria; F17.200 Nicotine dependence, unspecified, uncomplicated; Z87.440 Personal history of urinary (tract) infections; Z13.9 Encounter for screening, unspecified
CPT/HCPCS: 99203

== ENCOUNTER → 2024-05-22 14:04 | Outpatient (BNVA) | payer OTHER, SELFPAY | PROVIDERS: PCP Nurse Practitioner Family; Visit Provider Nurse Practitioner Family | DX: N20.0 Calculus of kidney (principal); R31.29 Other microscopic hematuria; F17.210 Nicotine dependence, cigarettes, uncomplicated; Z87.440 Personal history of urinary (tract) infections | CPT/HCPCS: 81003; 99202 ==

== ENCOUNTER 2024-06-03 11:33 | Outpatient (REF) | payer OTHER, SELFPAY ==
[2024-06-03 12:50] LABS: Anion Gap 13 (12-20); Blood Urea Nitrogen 12 mg/dL (9-16); Calcium 9.7 mg/dL (8.4-10.2); Carbon Dioxide 23 mmol/L (22-29); Chloride 110 mmol/L (96-108); Estimated Glomerular Filt Rate > 60; Potassium 3.9 mmol/L (3.3-5.1); Sodium 142 mmol/L (135-145)
[2024-06-03 13:29] LABS: Creatinine Urine 55.01 mg/dL; Protein/Creatinine Ratio, Ur 0.33 (<0.2); Total Protein Urine Random 18 mg/dL (<12)
== END 2024-06-03 11:34 | disposition home or self-care (01) ==
LOC: HO.LAB 11:33
PROVIDERS: PCP Nurse Practitioner Family; Visit Provider Internal Medicine Nephrology
DX: R80.8 Other proteinuria (principal)
CPT/HCPCS: 36415; 80051; 82310; 82565; 82570; 84156; 84520

== ENCOUNTER 2024-06-25 09:25 | Outpatient (AMB) | payer OTHER, SELFPAY ==
--- NOTE | 2024-06-25 09:39 | HO.NEPHOV ---
Vital Signs 06/25/24 09:43 Height 4 ft 11 in Weight 265 lb 2 oz BMI 53.5 BP 126/80 Blood Pressure Location Lt brachial Position Sitting Pulse 85 Pulse Source Pulse Oximeter Pulse Oximetry (%) 94 Oxygen Delivery Method Room Air Intake Visit Reasons: R/s from 06/20/24 Field Producer Required: No Accompanied by: Self / Same As Patient Allergies azithromycin Allergy (Unknown, Verified 06/25/24 09:43) (states she can take a Zpack) otherwise, throat closes erythromycin base [ERYTHROMYCIN BASE] Allergy (Unknown, Verified 06/25/24 09:43) THROAT CLOSES UP lamotrigine [From LAMICTAL] Allergy (Unknown, Verified 06/25/24 09:43) ANAPHYLAXIS Erythromycin Allergy (Unknown, Uncoded 05/22/24 14:31) anaphylaxis HPI Comments Details: Nimisha was seen in F/U for proteinuria. She has long standing DM & she has a BMI of over 51.0. She has hypertension but denies CAD, carotid stenosis, CVA, CHF, PAD or NIRAV. She denies any new bone or back pain, excessive NSAID intake, H/O malignancy, H/O microscopic hematuria, recurrent sinusitis, epistaxis, hemoptysis, new joint swelling or any H/O auto immune diseases. She is on ACEI. She has been on PPI for a long time. She did not have any new systemic complaints at the time of this office visit. [facility] Medical History Bipolar 1 disorder Anxiety Insomnia Uncontrolled diabetes mellitus Proteinuria HTN (hypertension) Dyslipidemia GERD (gastroesophageal reflux disease) Gastroparesis Asthma Personal history of nicotine dependence Morbid obesity with BMI of 50.0-59.9, adult Vulvovaginitis Nausea Dermatitis Family history of ovarian cancer Surgical History History of cholecystectomy (~2000) History of tubal ligation (~2008) History of Family History Father Hypertension Diabetes Mother Mental health disorder Ovarian cancer Sister Mental health disorder Son No problems noted. Son No problems noted. Daughter No problems noted. Social History Housing: Apartment Alcohol intake: never Patient Tobacco Use Status: Current everyday Tobacco user Cigarettes Per Day: 10 Years Smoked: (onset 11yo, 1ppd x 33yrs, quit from 8821-8753, now 5-7cig/day - 30pyh) e-Cigarette/Vaping Use: Never Used Second Hand Smoke Exposure: Yes service: No Current occupational status: disabled Cognitive needs: No Hearing needs: No Vision needs: No Female Reproductive History Menstrual Age of Menarche: 10 Review of Systems Const All systems reviewed & are unremarkable except as noted in HPI and below Physical Exam Vital Signs: Last Vital Signs Pulse 85 06/25/24 09:43 BP 126/80 06/25/24 09:43 Pulse Ox 94 06/25/24 09:43 Oxygen Delivery Method Room Air 06/25/24 09:43 BMI result Body Mass Index 53.5 Const General: comfortable and no acute distress Orientation/consciousness: patient oriented x3 HEENT Head: Yes normocephalic Mouth: Normal oral and palatal mucosa present Eyes EOM: EOMs intact bilaterally Neck Neck: Yes supple Resp Auscultation: clear to auscultation bilaterally Cardio Jugular venous distension: no JVD Rate: regular rate GI Palpation (GI): Soft to palpation Auscultation: normal bowel sounds Skin General skin exam: no rashes or lesions noted Neuro General: patient oriented x3 and moves all extremities Extrem General: Yes no pedal edema Results Reviewed Nephrology Results: Sodium 142 mmol/L (135-145) 06/03/24 Potassium 3.9 mmol/L (3.3-5.1) 06/03/24 Chloride 110 mmol/L (96-108) H 06/03/24 Carbon Dioxide 23 mmol/L (22-29) 06/03/24 BUN 12 mg/dL (9-16) 06/03/24 Creatinine 0.92 mg/dL (0.5-1.4) 06/03/24 Calcium 9.7 mg/dL (8.4-10.2) 06/03/24 Urine Creatinine 55.01 mg/dL 06/03/24 Protein/Creatinin Ratio 0.33 (<0.2) H 06/03/24 Assessment & Plan Assessment & Plan (1) Renal calculus: Code(s): N20.0 - Calculus of kidney Category: Medical (2) HTN (hypertension): Code(s): I10 - Essential (primary) hypertension Category: Medical Qualifiers: Hypertension type: primary hypertension Qualified Code(s): I10 - Essential (primary) hypertension (3) Proteinuria: Code(s): R80.9 - Proteinuria, unspecified Category: Medical Qualifiers: Proteinuria type: other Qualified Code(s): R80.8 - Other proteinuria Plan Nimisha likely has Diabetic nephropathy. Her W/U was reviewed. she does not need a renal biopsy now but may need in the future. She needs to loose weight. I increased her Jardiance to 25 mg daily at the last visit . She was asked to cut back on insulin dose if her blood sugar drops when she starts on higher dose of Jardiance. I plan to increase ACEI, with time based on evolving data. She may have to see Urology for renal calculus. She will be a candidate for HCTZ and or K citrate in the future. Her serum immunofixation showed normal pattern even though her IgA levels were 480. She should maintain good hydration and avoids NSAID's. All these have been explained in detail. Answered all questions. Orders: Orders Protein Creatinine Ratio, Ur 6 Months I10 - Essential (primary) hypertension, N20.0 - Calculus of kidney, R80.8 - Other proteinuria Electrolytes 6 Months I10 - Essential (primary) hypertension, N20.0 - Calculus of kidney, R80.8 - Other proteinuria Creatinine 6 Months I10 - Essential (primary) hypertension, N20.0 - Calculus of kidney, R80.8 - Other proteinuria Blood Urea Nitrogen 6 Months I10 - Essential (primary) hypertension, N20.0 - Calculus of kidney, R80.8 - Other proteinuria Coding Level of Care Code Est Pt Level 4 (34890) Diagnoses Renal calculus N20.0 Primary hypertension I10 Hypertension type: primary hypertension Other proteinuria R80.8 Proteinuria type: other
[2024-06-25 09:43] VITALS: BP 126/80; PULSE 85; O2SAT 94; BMI 53.5
== END 2024-06-25 09:58 | disposition home or self-care (01) ==
LOC: HO.HKAS 09:25
PROVIDERS: PCP Nurse Practitioner Family; Visit Provider Internal Medicine Nephrology
DX: N20.0 Calculus of kidney (principal); I10 Essential (primary) hypertension; R80.8 Other proteinuria
CPT/HCPCS: 99214

== ENCOUNTER → 2024-06-25 09:25 | Outpatient (BNVA) | payer OTHER, SELFPAY | PROVIDERS: PCP Nurse Practitioner Family; Visit Provider Internal Medicine Nephrology | DX: N20.0 Calculus of kidney (principal); I10 Essential (primary) hypertension; R80.8 Other proteinuria | CPT/HCPCS: 99212 ==

== ENCOUNTER 2024-09-02 08:50 | Outpatient (AMB) | payer OTHER, SELFPAY ==
--- NOTE | 2024-09-02 08:52 | A.OFFPC_ITS ---
Vital Signs 09/02/24 08:53 Height 4 ft 11 in Weight 271 lb BMI 54.7 BP 112/70 Blood Pressure Location Rt brachial Position Sitting Respiration 15 Pulse 85 Pulse Source Pulse Oximeter Temp 98.5 F Temp Source Oral Pulse Oximetry (%) 98 Oxygen Delivery Method Room Air Intake Visit Reasons: ANNUAL PE- A1C needed Allergies azithromycin Allergy (Unknown, Verified 09/02/24 09:25) (states she can take a Zpack) otherwise, throat closes erythromycin base (ERYTHROMYCIN BASE) Allergy (Unknown, Verified 09/02/24 09:25) THROAT CLOSES UP lamotrigine (From LAMICTAL) Allergy (Unknown, Verified 09/02/24 09:25) ANAPHYLAXIS Erythromycin Allergy (Unknown, Uncoded 09/02/24 09:25) anaphylaxis Medication List - Last Reconciled 09/02/24 by Nile Pruett, [facility]- alprazolam 1 mg PO TID PRN atorvastatin 80 mg PO BEDTIME benztropine mg PO BID betamethasone dipropionate 0.05% 1 appl topical DAILY PRN 30 days blood sugar diagnostic As directed buspirone 30 mg PO BID cholecalciferol (vitamin D3) 50 mcg PO DAILY 90 days cholestyramine-aspartame 4 gram 4 grams PO BID empagliflozin 25 mg PO DAILY escitalopram oxalate 20 mg PO DAILY fluconazole 150 mg PO Q3D 2 doses gabapentin 600 mg PO BID 90 days glucagon 3 mg/actuation (Baqsimi) mg intranasal PRN insulin regular hum U-500 conc 75 units subcut TID lancets As directed lisinopril 10 mg (1/2 x 20 mg) PO DAILY mirtazapine 30 mg PO BEDTIME multivitamin 1 tab PO DAILY pantoprazole 40 mg PO BID 90 days pen needle, diabetic As directed risperidone 3 mg PO BEDTIME semaglutide (Ozempic) mg subcut Tobacco use date assessed: 09/02/24 Dental Screening Dental Screen Date: 09/02/24 Did you have a dental visit in the last 12 months?: No Did you have a dental problem in the last 6 months where you did not have access to dental care?: No Was dental information given to patient?: Patient has dentist HPI ANNUAL PE- A1C needed HPI Details History of Present Illness The patient is a 48-year-old female presenting with a need for a physical examination and preventative care. She has a history of diabetes mellitus, for which she regularly consults an photocomposition keyboard operator and a cloth grader. Additionally, she is under the care of a urologist and a crowd controller for routine health maintenance. The patient is morbidly obese and has a history of psoriasis, with a large patch noted on the left lateral neck. She previously consulted a machine sand mixer but no longer does so, and she will be provided with a steroid cream for the psoriasis. She reports neuropathy but denies any chest pain, dyspnea, abdominal pain, or gastrointestinal disturbances such as blood in stool, constipation, or diarrhea. Despite the neuropathy, she has positive sensation with the use of a monofilament. already part of the low dose CT program Health Maintenance - Referral for eye examination - Scheduled mammogram for next month Social History Review of Systems - Neurological: Reports neuropathy. Maxi es headaches, dizziness, or balance issues. - Cardiovascular: Denies chest pain or p alpitations. - Respiratory: Denies dyspnea or wheezin g. - Gastrointestinal: Denies abdominal ama n, blood in stool, constipation, or diarrhea. -denies any SI or HI Physical Exam General: Cooperative, healthy appearing, comfortable, no acute distress and well developed, morbidly obese Orientation: Patient oriented x3 Limitations: No limitations Head: Normal to inspection Ears: Hearing grossly normal bilaterally Nose: Normal external nose present Face and sinus: Normal facial exam Eyes: Appearance normal, both eyes and all related structures Neck: Large patch of psoriasis noted to the left lateral neck Respiratory: Normal respiratory effort and able to speak in complete sentences. Clear to auscultation bilaterally Cardiovascular: Regular rate and rhythm. Normal S1 and S2 GI: Normal to inspection. Soft to palpation and nontender Skin: Healing scabs to upper shoulders and face, history of psoriasis Neuro: Patient oriented x3, positive sensation with use of monofilament despite some neuropathy reported Extremities: Normal to inspection Results Plan The patient will continue to manage diabetes mellitus with regular consultations with her photocomposition keyboard operator and cloth grader. A referral for an eye examination will be placed to monitor for any diabetes-related complications. For psoriasis, a steroid cream will be prescribed to manage the large patch on the left lateral neck. The patient is advised to maintain regular follow-ups with her crowd controller and urologist for ongoing health maintenance. Discussion Notes Patient Instructions - Continue regular follow-ups with endoc rinologist and cloth grader for diabetes management. - Schedule and attend the eye examinatio n as referred. - Apply prescribed steroid cream to psor iasis patch as directed. - Maintain scheduled appointments with g ynecologist and urologist. [facility] Medical History Bipolar 1 disorder Anxiety Insomnia Uncontrolled diabetes mellitus Proteinuria HTN (hypertension) Dyslipidemia GERD (gastroesophageal reflux disease) Gastroparesis Asthma Personal history of nicotine dependence Morbid obesity with BMI of 50.0-59.9, adult Vulvovaginitis Nausea Dermatitis Family history of ovarian cancer Surgical History History of cholecystectomy (~2000) History of tubal ligation (~2008) History of Family History Father Hypertension Diabetes Mother Mental health disorder Ovarian cancer Sister Mental health disorder Son No problems noted. Son No problems noted. Daughter No problems noted. Social History Housing: Apartment Alcohol intake: never Patient Tobacco Use Status: Current everyday Tobacco user Cigarettes Per Day: 10 Years Smoked: (onset 11yo, 1ppd x 33yrs, quit from 0991-0224, now 5-7cig/day - 30pyh) e-Cigarette/Vaping Use: Never Used Second Hand Smoke Exposure: Yes service: No Current occupational status: disabled Cognitive needs: No Hearing needs: No Vision needs: No Female Reproductive History Menstrual Age of Menarche: 10 Questionnaire PHQ-9 Over the last 2 weeks, how often have you been bothered by any of the following problems? 1. Little interest or pleasure in doing things: several days 2. Feeling down, depressed, or hopeless: several days 3. Trouble falling or staying asleep, or sleeping too much: several days 4. Feeling tired or having little energy: several days 5. Poor appetite or overeating: several days 6. Feeling bad about yourself - or that you are a failure or have let yourself or your family down: several days 7. Trouble concentrating on things, such as reading the newspaper or watching television: several days 8. Moving or speaking so slowly that other people could have noticed. Or the opposite - being so fidgety or restless that you have been moving around a lot more than usual: not at all 9. Thoughts that you would be better off or of hurting yourself in some way: not at all Total score: 7 Source: Developed by Drs. Adis Stern, Kelsi Alegre, Casey Swenson and colleagues, with an educational micky from [employer]. Thrive Questionnaire Date Thrive assessed: 08/30/24 I am a: Patient What is your living situation today?: I do not have a steady places to live I am staying at a hotel Within the past 12 months, did the food you bought not last and you didn't have the money to get more?: Sometimes True Within the past 12 months, did you worry whether your food would run out before you got money to buy more?: Sometimes True Do you have trouble paying for medicines?: No Do you have trouble getting transportation to medical appointments?: No Do you have trouble paying your heating and electricity bill?: No Do you have trouble taking care of your child, family member or friend?: No Do you have trouble with day-to-day activities such as bathing, preparing meals, shopping, managing finances, etc.?: Yes Are you currently unemployed and looking for a job?: No Are you interested in more education?: No Please select the resources that you would like help with: None Currently or been in a relationship where the following occur: No concerns reported THRIVE Score: 3 AUDIT C Alcohol Use Questionnaire (AUDIT-C) 1. How often do you have a drink containing alcohol?: Never 3. How often do you have six or more drinks on one occasion?: Never Total Score: 0 NANDA-7 AMB Questionnaire NANDA-7 Date NANDA - 7 assessed: 04/06/23 Feeling nervous, anxious, or on edge: 1 = Several days Not being able to stop or control worryin = Several days Worrying too much about different things: 1 = Several days Trouble relaxin = Several days Being so restless that it is hard to sit still: 1 = Several days Becoming easily annoyed or irritable: 1 = Several days Feeling afraid as if something awful might happen: 1 = Several days Total NANDA-7 score (0-4 normal; 5-9 mild; 10-14 moderate; 15-21 severe): 7 Source: Developed by Drs. Adis Stern, Kelsi Alegre, Casey Swenson and colleagues, with an educational micky from [employer]. Physical exam (Primary Care) Vital Signs: Last Vital Signs Temp 98.5 F 09/02/24 08:53 Pulse 85 09/02/24 08:53 Resp 15 09/02/24 08:53 BP 112/70 09/02/24 08:53 Pulse Ox 98 09/02/24 08:53 Oxygen Delivery Method Room Air 09/02/24 08:53 BMI result Body Mass Index 54.7 Tobacco/Smoking Status: Tobacco use Status Tobacco use date assessed 09/02/24 09/02/24 09:05 Patient Tobacco Use Status Current everyday Tobacco 09/02/24 08:55 e-Cigarette/Vaping Use Never Used 09/02/24 08:55 PHQ-9: PHQ-9 Score PHQ-9: Total score 7 09/02/24 09:11 Thrive Assessment: Date of Thrive Assessment Date Thrive assessed 08/30/24 09/02/24 08:55 Currently or been in a relationship where the following occur: No concerns reported Results AMB Hemoglobin A1c AMB Hemoglobin A1c 6.5 % Last Edit by Dipika Haskins CMA on 09/02/24 09:10 Results Reviewed Results Reviewed: Laboratory Last Values Hgb A1c (Clinic) 6.5 % (4.0-6.0) H 09/02/24 08:57 Coding Level of Care Code Est Pt Prev Care 40-64y(62404) Diagnoses Diabetes E11.9 Encounter for routine adult physical exam with abnormal findings Z00. Assessment & Plan Assessment & Plan (1) Diabetes: Code(s): E11.9 - Type 2 diabetes mellitus without complications Category: Medical (2) Encounter for routine adult physical exam with abnormal findings: Code(s): Z00. - Encounter for general adult medical examination with abnormal findings Category: Medical Plan . Orders: Orders AMB Hemoglobin A1c Today E11.9 - Type 2 diabetes mellitus without complications Comprehensive [place]. Panel Fast Today E11.9 - Type 2 diabetes mellitus without complications, Z00.01 - Encounter for general adult medical examination with abnormal findings Complete Blood Count Auto Diff Today E11.9 - Type 2 diabetes mellitus without complications, Z00. - Encounter for general adult medical examination with abnormal findings TSH reflex Free T4 Today E11.9 - Type 2 diabetes mellitus without complications, Z00. - Encounter for general adult medical examination with abnormal findings UA CC w/rflx Micro + Cult Today E11.9 - Type 2 diabetes mellitus without complications, Z00. - Encounter for general adult medical examination with abnormal findings Lipid Panel Today E11.9 - Type 2 diabetes mellitus without complications, Z00. - Encounter for general adult medical examination with abnormal findings Referrals Ophthalmology Referral E11.9 - Type 2 diabetes mellitus without complications Medications: New fluconazole 150 mg PO Q3D 2 tabs 1RF 2 doses Refilled betamethasone dipropionate 0.05% 1 appl topical DAILY PRN 45 grams 0RF skin irritation 30 days
[2024-09-02 08:53] VITALS: BP 112/70; PULSE 85; RESP 15; TEMP 36.9; O2SAT 98; BMI 54.7
== END 2024-09-02 09:24 | disposition home or self-care (01) ==
LOC: HO.HMCC 08:51
PROVIDERS: PCP Nurse Practitioner Family; Visit Provider Nurse Practitioner Family
DX: E11.9 Type 2 diabetes mellitus without complications (principal); Z00.01 Encounter for general adult medical examination with abnormal findings

== ENCOUNTER 2024-09-02 08:50 | Outpatient (REF) | payer OTHER, SELFPAY | END 2024-09-02 08:51 | disposition home or self-care (01) | LOC: HO.HMGCLDS 08:50 | PROVIDERS: PCP Nurse Practitioner Family; Visit Provider Nurse Practitioner Family | DX: Z00.01 Encounter for general adult medical examination with abnormal findings (principal); E11.9 Type 2 diabetes mellitus without complications; F17.210 Nicotine dependence, cigarettes, uncomplicated; Z71.3 Dietary counseling and surveillance; I10 Essential (primary) hypertension; E78.5 Hyperlipidemia, unspecified | CPT/HCPCS: 83036; 99396 ==

== ENCOUNTER 2024-09-03 13:34 | Outpatient (REF) | payer OTHER, SELFPAY ==
[2024-09-03 16:10] LABS: MANUAL DIFF FLAG NO
[2024-09-03 16:17] LABS: Basophils Absolute Auto 0.1 X10*3/uL (0.0-0.2); Basophils Percent Auto 0.5 % (0-2); Eosinophils Absolute Auto 0.2 X10*3/uL (0.0-0.4); Eosinophils Percent Auto 1.9 % (0-4); Hematocrit 37.1 % (37.0-47.0); Hemoglobin 12.6 g/dl (12.0-16.0); Imm Gran Abs Auto 0.04 X10*3/uL (0.00-0.03); Imm Gran Pct Auto 0.4 % (0.0-0.4); Lymphocytes Absolute Auto 4.8 X10*3/uL (1.2-4.9); Lymphocytes Percent Auto 45.6 % (20-40); Mean Corpuscular Hemoglobin 29.9 pg (27.0-33.0); Mean Corpuscular Volume 88.1 fL (80.0-98.0); Mean Platelet Volume 10.4 fL (9.4-12.3); Monocytes Absolute Auto 0.6 X10*3/uL (0.1-1.2); Monocytes Percent Auto 5.4 % (2-11); Neutrophils Absolute Auto 4.8 x10*3/uL (2.0-8.3); Neutrophils Percent Auto 46.2 % (45-73); Platelet Count 247 X10*3/uL (160-400); Red Blood Count 4.21 X10*6/uL (4.20-5.50); Red Cell Distribution Width 13.2 % (11.0-16.0); White Blood Count 10.5 X10*3/uL (4.8-10.8)
[2024-09-03 16:33] LABS: Appearance Urine Clear; Color Urine Yellow; Glucose Urine UA >=1000 mg/dL (Negative); Leukocyte Esterase Urine Trace (Negative); Nitrite Urine Negative (Negative); PH 5.5 (5.0-9.0); Specific Gravity - Urine >= 1.030 (1.005-1.025); UMIC TRIGGER UACC YES; Urine Blood Negative (Negative); Urine Ketones Negative (Negative); Urine Protein 30 (1+) mg/dL (Neg-Trace)
[2024-09-03 16:41] LABS: Alanine Aminotransferase 18 U/L (0-31); Albumin Level 4.2 g/dL (3.5-5.0); Alkaline Phosphatase 78 U/L (39-117); Anion Gap 15 (12-20); Aspartate Amino Transferase 23 U/L (5-31); Bilirubin Total 0.4 mg/dL (0.0-1.0); Blood Urea Nitrogen 13 mg/dL (9-16); Calcium 9.3 mg/dL (8.4-10.2); Carbon Dioxide 19 mmol/L (22-29); Chloride 110 mmol/L (96-108); Cholesterol 106 mg/dL (<200); Estimated Glomerular Filt Rate > 60; Glucose Fasting 153 mg/dL (60-99); HDL Cholesterol 37 mg/dL (>40); LDL Cholesterol Calculated 55 mg/dL (<100); Potassium 3.8 mmol/L (3.3-5.1); Sodium 140 mmol/L (135-145); Total Protein 7.5 g/dL (6.5-8.0); Triglycerides 72 mg/dL (<150)
[2024-09-03 16:48] LABS: TSH reflex Free T4 3.68 uIU/mL (0.32-4.0)
[2024-09-03 18:22] LABS: Bacteria Urine None Seen (None Seen); Hyaline Casts Urine 0-2 /LPF (0-2); RBC Urine 0-2 /HPF (0-2); UACC Culture Trigger YES; WBC Urine 21-50 /HPF (0-5)
== END 2024-09-03 13:35 | disposition home or self-care (01) ==
LOC: HO.HMGCLDS 13:34
PROVIDERS: PCP Nurse Practitioner Family; Visit Provider Nurse Practitioner Family
DX: E11.9 Type 2 diabetes mellitus without complications (principal); Z00.01 Encounter for general adult medical examination with abnormal findings
CPT/HCPCS: 36415; 80053; 80061; 81001; 84443; 85025; 87086; 87147

== ENCOUNTER 2024-10-31 15:29 | Outpatient (REF) | payer OTHER, SELFPAY | END 2024-10-31 15:30 | disposition home or self-care (01) | LOC: HO.LAB 15:29 | PROVIDERS: PCP Nurse Practitioner Family; Visit Provider Nurse Practitioner Family | DX: R31.29 Other microscopic hematuria (principal); N39.0 Urinary tract infection, site not specified; F17.200 Nicotine dependence, unspecified, uncomplicated; Z13.89 Encounter for screening for other disorder | CPT/HCPCS: 81003; 88112; 99212 ==

== ENCOUNTER 2024-10-31 15:29 | Outpatient (AMB) | payer OTHER, SELFPAY ==
--- NOTE | 2024-10-31 16:07 | A.OFFVIS_ITS ---
Intake Visit Reasons: follow up/PVR Intake Note: Patient is present for follow up/PVR Urology Medication:NONE Antibiotic Allergy:AZITHROMYCIN,ERTHROMYCIN Blood Thinner:NONE PVR:0ml Oxidation Operator Required: No Allergies azithromycin Allergy (Unknown, Verified 10/31/24 20:39) (states she can take a Zpack) otherwise, throat closes erythromycin base (ERYTHROMYCIN BASE) Allergy (Unknown, Verified 10/31/24 20:39) THROAT CLOSES UP lamotrigine (From LAMICTAL) Allergy (Unknown, Verified 10/31/24 20:39) ANAPHYLAXIS Erythromycin Allergy (Unknown, Uncoded 10/31/24 20:39) anaphylaxis Medication List - Last Reconciled 10/31/24 by AIRAM Cuevas-SEMAJ alprazolam 1 mg PO TID PRN atorvastatin 80 mg PO BEDTIME benztropine mg PO BID betamethasone dipropionate 0.05% 1 appl topical DAILY PRN 30 days blood sugar diagnostic As directed buspirone 30 mg PO BID cholecalciferol (vitamin D3) 50 mcg PO DAILY 90 days cholestyramine-aspartame 4 gram 4 grams PO BID empagliflozin 25 mg PO DAILY escitalopram oxalate 20 mg PO DAILY estradiol 0.01%(0.1mg/gram) (Estrace) 1 g vaginal 2XW 90 days gabapentin 600 mg PO BID 90 days glucagon 3 mg/actuation (Baqsimi) mg intranasal PRN insulin regular hum U-500 conc 75 units subcut TID lancets As directed lisinopril 10 mg (1/2 x 20 mg) PO DAILY mirtazapine 30 mg PO BEDTIME multivitamin 1 tab PO DAILY pantoprazole 40 mg PO BID 90 days pen needle, diabetic As directed risperidone 3 mg PO BEDTIME semaglutide (Ozempic) mg subcut HPI Comments Details: Nimisha is a very pleasant 49-year-old female patient of Dr. Dotson was accompanied by her daughter at today's office visit. She has a past medical history of bipolar disorder, anxiety, insomnia, uncontrolled diabetes, proteinuria, hypertension, dyslipidemia, GERD, gastroparesis, asthma, vulvodynia , and dermatitis. She presents to the office today for a follow up. Of note, patient was seen approximately 5 months ago as a new patient for microscopic hematuria. In discussion with the patient today she reports since her last office she has been experiencing UTI's. In review of patients chart it appears urine cultures are as follows: 08/01 Strep agalactiae (Grp B), / Strep agalactiae (Grp B), 02/03 Strep agalactiae (Grp B), 04/06 Strep agalactiae (Grp B), 09/04 Strep agalactiae (Grp B) Previous imaging CT urogram 04/06 noted punctate nonobstructing left renal calculus. No hydronephrosis noted bilaterally. Unremarkable bilateral renal collecting systems. She does report a history of nicotine dependence for over 35 years. She reports she had been smoking approximately 1 pack of cigarettes per day. In office urinalysis today notes microscopic hematuria. She denies any previous history of workplace chemical exposure. We discussed reasons for blood in the urine may include but are not limited to kidney stones, cancer in the urinary tract, kidney stone disease or inflammatory conditions of the urinary tract. I have discussed workup to include cystoscopy evaluation. She denies any bothersome urinary issues. She denies urinary urgency, urinary frequency, incontinence, nocturia, hematuria, dysuria, foul smelling urine, changes to urinary stream, flank pain, fever, and or chills. She is happy with her current voiding parameters. She reports feeling microscopic hematuria was related to recent urinary tract infection. 04/06 Urine Cytology Negative for high-grade urothelial carcinoma. She otherwise offers no other issues or concerns at this time. [facility] Medical History Bipolar 1 disorder Anxiety Insomnia Uncontrolled diabetes mellitus Proteinuria HTN (hypertension) Dyslipidemia GERD (gastroesophageal reflux disease) Gastroparesis Asthma Personal history of nicotine dependence Morbid obesity with BMI of 50.0-59.9, adult Vulvovaginitis Nausea Dermatitis Family history of ovarian cancer Surgical History History of cholecystectomy (~2000) History of tubal ligation (~2008) History of Family History Father Hypertension Diabetes Mother Mental health disorder Ovarian cancer Sister Mental health disorder Son No problems noted. Son No problems noted. Daughter No problems noted. Social History Housing: Apartment Alcohol intake: never Patient Tobacco Use Status: Current everyday Tobacco user Cigarettes Per Day: 10 Years Smoked: (onset 11yo, 1ppd x 33yrs, quit from [id number], now 5-7cig/day - 30pyh) e-Cigarette/Vaping Use: Never Used Second Hand Smoke Exposure: Yes service: No Current occupational status: disabled Cognitive needs: No Hearing needs: No Vision needs: No Female Reproductive History Menstrual Age of Menarche: 10 Review of Systems Const Reports no additional complaints Eyes Reports no additional complaints ENT Reports no additional complaints Card Reports as per HPI Resp Reports as per HPI GI Reports as per HPI Reports as per HPI Musc Reports no additional complaints Skin/Breast Reports as per HPI Neuro Reports as per HPI Psych Reports as per HPI Endo Reports as per HPI David/Lymph Reports no additional complaints Aller/Immun Reports no additional complaints Physical Exam Const General: cooperative, comfortable, no acute distress, well developed, alert and awake Nutritional Appearance: obese Orientation/consciousness: patient oriented x3 Limitations: no limitations HEENT Head: Yes normal to inspection, Yes normocephalic and Yes atraumatic Ears: hearing grossly normal bilaterally Eyes General: appearance normal, both eyes and all related structures Neck Neck: Yes normal visual inspection and Yes trachea midline Chest Chest palpation & inspection: normal inspection of the chest Resp Effort & Inspection: normal respiratory effort and able to speak in complete sentences Cardio Rate: regular rate GI Inspection: Yes normal to inspection General: Yes no CVA tenderness Back/Spine/Pelvis Back: no CVA tenderness Skin General skin exam: no rashes or lesions noted Neuro General: patient oriented x3 Extrem General: Yes normal to inspection Psych Appearance: grossly normal and well kempt Mental Status: mental status grossly normal Speech and movement: Normal speech and movement present and Clear speech present Affect: normal affect Attitude: cooperative Thought process: Normal thought process present Thought content: Normal thought content present Insight: Fair insight present (Psych) Judgement: Fair judgement present (Psych) Results AMB Urinalysis, Automated UA Leukoctes 15 Mare/uL Last Edit by Marcie Haskins on 10/31/24 16:48 UA Nitrite Negative Last Edit by Marcie Haskins on 10/31/24 16:48 UA Urobilinogen 3.5 mg/dL Last Edit by Marcie Haskins on 10/31/24 16:48 UA Protein 0.3 mg/dL Last Edit by Marcie Haskins on 10/31/24 16:48 UA pH 5.5 Last Edit by Marcie Haskins on 10/31/24 16:48 UA Blood 10 Logan/uL Last Edit by Marcie Haskins on 10/31/24 16:48 UA Specific [place] 1.015 Last Edit by Marcie Haskins on 10/31/24 16:48 UA Ketone Negative Last Edit by Marcie Haskins on 10/31/24 16:48 UA Bilirubin 0 mg/dL Last Edit by Marcie Haskins on 10/31/24 16:48 UA Glucose 60 mg/dL Last Edit by Marcie Jozef on 10/31/24 16:48 Results Reviewed Results Reviewed: Laboratory Last Values Urine pH (Auto) 5.5 10/31/24 16:03 Specific [place] (Auto) 1.015 10/31/24 16:03 Urine Protein (Auto) 0.3 mg/dL 10/31/24 16:03 Glucose (UA)(Auto) 60 mg/dL 10/31/24 16:03 Urine Ketones (Auto) Negative 10/31/24 16:03 Urine Blood (Auto) 10 Logan/uL 10/31/24 16:03 Urine Nitrite (Auto) Negative 10/31/24 16:03 Urine Bilirubin (Auto) 0 mg/dL 10/31/24 16:03 Urine Urobilinogen (Auto) 3.5 mg/dL 10/31/24 16:03 Leukocyte Esterase (Auto) 15 Mare/uL 10/31/24 16:03 Assessment & Plan Assessment & Plan (1) Microscopic hematuria: Comment: (blood on 05/15/23 & 01/24/24 UA - No blood on 03/15/24 UA) Code(s): R31.29 - Other microscopic hematuria Category: Medical (2) Personal history of nicotine dependence: Comment: (onset 11yo, 1ppd x 33yrs, quit 4yrs now 5-7cig/day - 30pyh) Code(s): Z87.891 - Personal history of nicotine dependence Category: Medical (3) Nicotine dependence: Code(s): F17.200 - Nicotine dependence, unspecified, uncomplicated Category: Medical (4) Recurrent urinary tract infection: Code(s): N39.0 - Urinary tract infection, site not specified Category: Medical Plan In office urinalysis results reviewed with the patient today; as noted above; will send for repeat urine cytology. We did discussed potential causes of microscopic hematuria as well as recurrent urinary tract infections. We discussed further treatment options and risks and benefits of these treatment options. She currently denies any UTI like symptoms. Start Estrace cream as discussed and prescribed. We discussed the importance of limiting/quitting nicotine dependence for overall health and well-being. Follow-up next available in office cystoscopy. Follow-up per doctor's orders; or sooner with any issues, concerns, and or questions. Orders: Orders AMB Urinalysis Automated Today Z13.9 - Encounter for screening, unspecified Urine Cytology Today F17.200 - Nicotine dependence, unspecified, uncomplicated, N39.0 - Urinary tract infection, site not specified, R31.29 - Other microscopic hematuria, Z87.891 - Personal history of nicotine dependence Medications: New estradiol 0.01%(0.1mg/gram) (Estrace) Apply a pea-sized amount to urethra daily x1 month and then 3 times per week thereafter 1 g vaginal 2XW 42.5 grams 3RF 90 days Patient Instructions: The patient had an opportunity to ask questions regarding the treatment plan. All questions were answered. Physical exam, labs, and imaging were discussed and reviewed in detail. As well as risks, benefits, and discussion of treatment choices. No major barriers to understanding were identified. The patient expressed understanding and agreement with the above treatment plan. The patient was made aware they should contact our office by phone for worsening of their current condition, the appearance of new symptoms, or with any questions or concerns. Compliance is encouraged with any medications and follow up testing that is ordered. It is a privilege to be allowed the opportunity to participate in? your urological care.? Again, if you have any questions or concerns If you have any questions or concerns please do not hesitate to contact me. The office is [phone]. This note is constructed using voice recognition software. While every effort has been made to ensure accuracy network operations lead errors may have been included. Yours sincerely, KSENIA Cuevas Coding Level of Care Code Est Pt Level 4 (11743) Diagnoses Microscopic hematuria R31.29 Personal history of nicotine dependence Z87.891 Nicotine dependence F17.200 Recurrent urinary tract infection N39.0
== END 2024-10-31 16:33 | disposition home or self-care (01) ==
LOC: HO.HUSH 15:30
PROVIDERS: PCP Nurse Practitioner Family; Visit Provider Nurse Practitioner Family
DX: R31.29 Other microscopic hematuria (principal); F17.200 Nicotine dependence, unspecified, uncomplicated; N39.0 Urinary tract infection, site not specified; Z13.9 Encounter for screening, unspecified
CPT/HCPCS: 99214

== ENCOUNTER 2025-02-27 | Outpatient (REF) | payer OTHER, SELFPAY ==
[2025-02-27 18:18] LABS: Protein/Creatinine Ratio, Ur 0.69 (<0.2); Total Protein Urine Random 163 mg/dL (<12)
== END 2025-02-27 00:01 ==
LOC: CF
PROVIDERS: Internal Medicine Nephrology; PCP Nurse Practitioner Family; Visit Provider Physician Assistant Medical
DX: I10 Essential (primary) hypertension (principal); N20.0 Calculus of kidney; R80.8 Other proteinuria
CPT/HCPCS: 82570; 84156

== ENCOUNTER 2025-03-03 10:37 | Outpatient (REF) | payer OTHER, SELFPAY ==
[2025-03-03 14:34] LABS: Anion Gap 14 (12-20); Blood Urea Nitrogen 8 mg/dL (9-16); Carbon Dioxide 23 mmol/L (22-29); Chloride 109 mmol/L (96-108); Estimated Glomerular Filt Rate > 60; Potassium 3.4 mmol/L (3.3-5.1); Sodium 143 mmol/L (135-145)
== END 2025-03-03 10:38 | disposition home or self-care (01) ==
LOC: HO.HKASLDS 10:37
PROVIDERS: PCP Nurse Practitioner Family; Visit Provider Internal Medicine Nephrology
DX: I10 Essential (primary) hypertension (principal); N20.0 Calculus of kidney; R80.8 Other proteinuria
CPT/HCPCS: 36415; 80051; 82565; 84520

== ENCOUNTER 2025-03-04 14:53 | Outpatient (AMB) | payer OTHER, SELFPAY ==
--- NOTE | 2025-03-04 15:15 | HO.NEPHOV ---
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 She has long standing DM & she has a BMI of over 56.0. She has hypertension but denies CAD, carotid stenosis, CVA, CHF, PAD or NIRAV. She denies any new bone or back pain, excessive NSAID intake, H/O malignancy, H/O microscopic hematuria, recurrent sinusitis, epistaxis, hemoptysis, new joint swelling or any H/O auto immune diseases. She is on ACEI. She has been on PPI for a long time. She did not have any new systemic complaints at the time of this office visit. [facility] Medical History (Updated 01/31/25 @ 12:11 by Shannon Abad PA-C) Recurrent urinary tract infection Nicotine dependence Bipolar 1 disorder Anxiety Insomnia Uncontrolled diabetes mellitus Proteinuria HTN (hypertension) Dyslipidemia GERD (gastroesophageal reflux disease) Gastroparesis Asthma Morbid obesity with BMI of 50.0-59.9, adult Vulvovaginitis Nausea Dermatitis Family history of ovarian cancer Surgical History History of cholecystectomy (~2000) History of tubal ligation (~2008) History of Family History Father Hypertension Diabetes Mother Mental health disorder Ovarian cancer Sister Mental health disorder Son No problems noted. Son No problems noted. Daughter No problems noted. Social History Housing: Apartment Alcohol intake: never Patient Tobacco Use Status: Current everyday Tobacco user Cigarettes Per Day: 10 Years Smoked: (onset 11yo, 1ppd x 33yrs, quit from [id number], now 5-7cig/day - 30pyh) e-Cigarette/Vaping Use: Never Used Second Hand Smoke Exposure: Yes service: No Current occupational status: disabled Cognitive needs: No Hearing needs: No Vision needs: No Female Reproductive History Menstrual Age of Menarche: 10 Review of Systems Const All systems reviewed & are unremarkable except as noted in HPI and below Physical Exam Vital Signs: Last Vital Signs Pulse 80 03/04/25 15:16 BP 140/90 H 03/04/25 15:16 Pulse Ox 96 03/04/25 15:16 Oxygen Delivery Method Room Air 03/04/25 15:16 BMI result Body Mass Index 56.1 Const General: comfortable and no acute distress Orientation/consciousness: patient oriented x3 HEENT Head: Yes normocephalic Mouth: Normal oral and palatal mucosa present Eyes EOM: EOMs intact bilaterally Neck Neck: Yes supple Resp Auscultation: clear to auscultation bilaterally Cardio Jugular venous distension: no JVD Rate: regular rate Heart sounds: Murmur heart sound present GI Palpation (GI): Soft to palpation Auscultation: normal bowel sounds General: Yes no CVA tenderness Back/Spine/Pelvis Back: no CVA tenderness Skin General skin exam: no rashes or lesions noted Neuro General: patient oriented x3 and moves all extremities Extrem General: Yes no pedal edema Results Reviewed Nephrology Results: Sodium, (135-145) 143 mmol/L 03/03/25 Potassium, (3.3-5.1) 3.4 mmol/L 03/03/25 Chloride, (96-108) 109 mmol/L H 03/03/25 Carbon Dioxide, (22-29) 23 mmol/L 03/03/25 BUN, (9-16) 8 mg/dL L 03/03/25 Creatinine, (0.5-1.4) 0.86 mg/dL 03/03/25 Urine Creatinine 237.53 mg/dL 02/27/25 Protein/Creatinin Ratio, (<0.2) 0.69 H 02/27/25 Renal US 07/19/21 Assessment & Plan Assessment & Plan (1) HTN (hypertension): Code(s): I10 - Essential (primary) hypertension Category: Medical Qualifiers: Hypertension type: primary hypertension Qualified Code(s): I10 - Essential (primary) hypertension (2) Proteinuria: Code(s): R80.9 - Proteinuria, unspecified Category: Medical Qualifiers: Proteinuria type: other Qualified Code(s): R80.8 - Other proteinuria Plan Nimisha likely has Diabetic nephropathy. Her W/U was reviewed. she does not need a renal biopsy now but may need in the future. She needs to loose weight. She can continue Jardiance at 25 mg daily . She was asked to cut back on insulin dose if her blood sugar drops when she starts on higher dose of Jardiance. I plan to increase ACEI, with time based on evolving data. She may have to see Urology for renal calculus. She will be a candidate for HCTZ and or K citrate in the future. Her serum immunofixation showed normal pattern even though her IgA levels were 480. I increased her lisinopril to 20 mg daily. She should maintain good hydration and avoids NSAID's. All these have been explained in detail. Answered all questions. Orders: Orders Protein Creatinine Ratio, Ur 6 Months I10 - Essential (primary) hypertension, R80.8 - Other proteinuria Blood Urea Nitrogen 6 Months I10 - Essential (primary) hypertension, R80.8 - Other proteinuria Creatinine 6 Months I10 - Essential (primary) hypertension, R80.8 - Other proteinuria Electrolytes 6 Months I10 - Essential (primary) hypertension, R80.8 - Other proteinuria Medications: Changed From lisinopril 10 mg (1/2 x 20 mg) PO DAILY 30 tabs 5RF To lisinopril 20 mg PO DAILY 30 tabs 6RF Refilled lisinopril 20 mg PO DAILY 30 tabs 6RF Coding Level of Care Code Est Pt Level 4 (28718) Diagnoses Primary hypertension I10 Hypertension type: primary hypertension Other proteinuria R80.8 Proteinuria type: other
[2025-03-04 15:16] VITALS: BP 140/90; PULSE 80; O2SAT 96; BMI 56.1
== END 2025-03-04 15:58 | disposition home or self-care (01) ==
LOC: HO.HKAS 14:53
PROVIDERS: PCP Nurse Practitioner Family; Visit Provider Internal Medicine Nephrology
DX: I10 Essential (primary) hypertension (principal); R80.8 Other proteinuria
CPT/HCPCS: 99214

== ENCOUNTER → 2025-03-04 14:53 | Outpatient (BNVA) | payer OTHER, SELFPAY | PROVIDERS: PCP Nurse Practitioner Family; Visit Provider Internal Medicine Nephrology | DX: I10 Essential (primary) hypertension (principal); R80.9 Proteinuria, unspecified; E11.9 Type 2 diabetes mellitus without complications; F17.210 Nicotine dependence, cigarettes, uncomplicated; N20.0 Calculus of kidney; Z79.84 Long term (current) use of oral hypoglycemic drugs; Z79.899 Other long term (current) drug therapy | CPT/HCPCS: 99212 ==

== ENCOUNTER 2025-03-05 09:51 | Outpatient (AMB) | payer OTHER, SELFPAY ==
[2025-03-05 09:58] VITALS: BP 160/82; PULSE 92; RESP 16; O2SAT 96; BMI 55.9
--- NOTE | 2025-03-05 09:58 | A.OFFPC_ITS ---
Vital Signs 03/05/25 09:58 03/05/25 10:29 Height 4 ft 11 in Weight 277 lb BMI 55.9 BP 160/82 H 148/78 H Blood Pressure Location Lt brachial Lt brachial Position Sitting Sitting Respiration 16 Pulse 92 Pulse Source Pulse Oximeter Pulse Oximetry (%) 96 Oxygen Delivery Method Room Air Intake Visit Reasons: 6m f/u- repeat A1C needed Physician Gynecologist Required: No Accompanied by: Self / Same As Patient Allergies azithromycin Allergy (Unknown, Verified 03/05/25 09:58) (states she can take a Zpack) otherwise, throat closes erythromycin base (ERYTHROMYCIN BASE) Allergy (Unknown, Verified 03/05/25 09:58) THROAT CLOSES UP lamotrigine (From LAMICTAL) Allergy (Unknown, Verified 03/05/25 09:58) ANAPHYLAXIS Erythromycin Allergy (Unknown, Uncoded 03/05/25 09:58) anaphylaxis Medication List - Last Reconciled 03/05/25 by Nile Pruett, SANDING MACHINE TENDER- alprazolam 1 mg PO TID PRN atorvastatin 80 mg PO BEDTIME benztropine mg PO BID betamethasone dipropionate 0.05% 1 appl topical DAILY PRN 30 days blood sugar diagnostic As directed buspirone 30 mg PO BID cholecalciferol (vitamin D3) 50 mcg PO DAILY 90 days cholestyramine-aspartame 4 gram 4 grams PO BID empagliflozin 25 mg PO DAILY escitalopram oxalate 20 mg PO DAILY estradiol 0.01%(0.1mg/gram) (Estrace) 1 g vaginal 2XW 90 days gabapentin 600 mg PO BID 90 days glucagon 3 mg/actuation (Baqsimi) mg intranasal PRN insulin regular hum U-500 conc 75 units subcut TID lancets As directed lisinopril 20 mg PO DAILY mirtazapine 30 mg PO BEDTIME multivitamin 1 tab PO DAILY pantoprazole 40 mg PO BID 90 days pen needle, diabetic As directed risperidone 3 mg PO BEDTIME tirzepatide (Mounjaro) 2.5 mg (0.5 mL) subcut QWEEK Tobacco use date assessed: 03/05/25 Dental Screening Dental Screen Date: 09/02/24 HPI 6m f/u- repeat A1C needed HPI Details Chief Complaint The patient presents for a follow-up visit for diabetes management. History of Present Illness The patient is a 49 year old female presenting for follow-up for diabetes. Her most recent HbA1c was 6.9. She has a history of neuropathy, for which she takes gabapentin, and sees a pr internship regularly. Her pr internship increased her ILSA inhibitor from 10 mg to 20 mg yesterday for hypertension. 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 A past trial of steroid cream for this lesion was not helpful. She also has a history of skin picking, leading to multiple lesions and scars on her face and upper extremities, and has not seen a soldering inspector in some time. The patient is morbidly obese and has been gaining weight despite being on Ozempic. 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 - Weight Management: Patient reports an increase in weight. Health Maintenance - Patient has a diabetic eye exam schedu led in May. - Patient is due for fasting labs. - Patient sees a pr internship on a regul ar basis. Review of Systems - Dermatologic: Reports an itchy, very d ark, and slightly raised plaque on her left neck. - Neurological: Reports a history of rachel ropathy. -denies any cp, dizziness, mathews, blurred v ision, sob Physical Exam General: Cooperative, healthy appearing, comfortable, no acute distress and well developed. Morbidly obese. Orientation: Patient oriented x3 Limitations: No limitations Head: Normal to inspection Ears: Hearing grossly normal bilaterally Nose: Normal external nose present Face and sinus: Normal facial exam. Multiple lesions and scars noted to her face. Eyes: Appearance normal, both eyes and all related structures Neck: Normal visual inspection and Yes full ROM. Plaque, almost like plaque psoriasis, to the left side of her neck and to her trap. Very dark, slightly raised. Respiratory: Normal respiratory effort and able to speak in complete sentences. Clear to auscultation bilaterally, though slightly diminished and difficult to auscultate due to body habitus. Cardiovascular: Regular rate and rhythm. Normal S1 and S2 GI: Normal to inspection. Soft to palpation and nontender Skin: Severe dermatitis. Multiple lesions and scars noted to her upper extremities. Large Plaque, to the left side of her neck and to her trap. Neuro: Patient oriented x3. History of neuropathy. Positive sensation on foot exam using monofilament, though could not feel the vibration on the 128 tuning fork. Extremities: Normal to inspection. Multiple lesions and scars noted to her upper extremities. Results - Labs: Her A1c is 6.9. Plan 1. Diabetes Mellitus The patient's HbA1c is 6.9. Due to weight gain while on Ozempic, she will be switched to Mounjaro, starting at the lowest dose and titrating up quickly. She needs to complete fasting labs in the near future. 2. Hypertension The patient was hypertensive today. Her pr internship recently increased her ILSA inhibitor dose from 10 mg to 20 mg yesterday. She has been instructed to send her blood pressure readings in about two weeks to myself, at which point her medication may be further adjusted. 3. Neuropathy The patient has a history of neuropathy and takes gabapentin. Her foot exam was positive for sensation with a monofilament but she could not feel vibration from a 128 Hz tuning fork. She has an eye exam scheduled for May. on gabapentin 4. Dermatitis The patient has a plaque on the left side of her neck and trapezius, described as being like plaque psoriasis, along with multiple lesions and scars from skin picking. Previous treatment with a steroid cream did not help the plaque. A re- referral to dermatology will be placed as she has not been seen in some time. 5. Morbid Obesity To address her morbid obesity and associated weight gain, the patient's medication will be switched from Ozempic to Mounjaro, which has shown better results for weight management. Discussion Notes I discussed the patient's diabetes status, noting her A1c of 6.9. To address her weight gain, I explained that we would stop the Ozempic and start Mounjaro at the lowest dose, with a plan to titrate it up quickly. We reviewed her hypertension and the recent dose increase of her ILSA inhibitor by her pr internship. I instructed her to send me her home blood pressure readings in tw o weeks for potential further adjustments. I advised her to get fasting labs done soon. We also talked about her skin condition, including the plaque on her neck and lesions from picking. Since a prior steroid cream was ineffective, I informed her that I would be re-referring her to dermatology. Patient Instructions - You are due for lab work, please have this done while fasting. - [facility] - Please send your home blood pressure r pedro luisdings to our office in about two weeks so we can see if your new medication dose is working. - We are placing a new referral for you to see a soldering inspector for your skin condition. - We will be stopping your Ozempic and s tarting a new medication called Mounjaro to help with your weight and diabetes. Start with the lowest dose as prescribed. - Continue taking gabapentin for your ne uropathy. [facility] Medical History Dermatitis Recurrent urinary tract infection Nicotine dependence Bipolar 1 disorder Anxiety Insomnia Uncontrolled diabetes mellitus Proteinuria HTN (hypertension) Dyslipidemia GERD (gastroesophageal reflux disease) Gastroparesis Asthma Morbid obesity with BMI of 50.0-59.9, adult Vulvovaginitis Nausea Family history of ovarian cancer Surgical History History of cholecystectomy (~2000) History of tubal ligation (~2008) History of Family History Father Hypertension Diabetes Mother Mental health disorder Ovarian cancer Sister Mental health disorder Son No problems noted. Son No problems noted. Daughter No problems noted. Social History Housing: Apartment Alcohol intake: never Patient Tobacco Use Status: Current everyday Tobacco user Cigarettes Per Day: 10 Years Smoked: (onset 11yo, 1ppd x 33yrs, quit from 1467-3088, now 5-7cig/day - 30pyh) e-Cigarette/Vaping Use: Never Used Second Hand Smoke Exposure: Yes service: No Current occupational status: disabled Cognitive needs: No Hearing needs: No Vision needs: No Female Reproductive History Menstrual Age of Menarche: 10 Questionnaire Thrive Questionnaire Date Thrive assessed: 08/30/24 I am a: Patient What is your living situation today?: I do not have a steady places to live I am staying at a hotel Within the past 12 months, did the food you bought not last and you didn't have the money to get more?: Sometimes True Within the past 12 months, did you worry whether your food would run out before you got money to buy more?: Sometimes True Do you have trouble paying for medicines?: No Do you have trouble getting transportation to medical appointments?: No Do you have trouble paying your heating and electricity bill?: No Do you have trouble taking care of your child, family member or friend?: No Do you have trouble with day-to-day activities such as bathing, preparing meals, shopping, managing finances, etc.?: Yes Are you currently unemployed and looking for a job?: No Are you interested in more education?: No Please select the resources that you would like help with: None Currently or been in a relationship where the following occur: No concerns reported THRIVE Score: 3 NANDA-7 AMB Questionnaire NANDA-7 Date NANDA - 7 assessed: 04/06/23 Source: Developed by Drs. Adis Stern, Kelsi Alegre, Casey Swenson and colleagues, with an educational micky from [employer]. Physical exam (Primary Care) Vital Signs: Last Vital Signs Pulse 92 03/05/25 09:58 Resp 16 03/05/25 09:58 BP 160/82 H 03/05/25 09:58 Pulse Ox 96 03/05/25 09:58 Oxygen Delivery Method Room Air 03/05/25 09:58 BMI result Body Mass Index 55.9 Tobacco/Smoking Status: Tobacco use Status Tobacco use date assessed 03/05/25 03/05/25 10:03 Patient Tobacco Use Status Current everyday Tobacco 03/05/25 09:58 e-Cigarette/Vaping Use Never Used 03/05/25 09:58 Thrive Assessment: Date of Thrive Assessment Date Thrive assessed 08/30/24 03/05/25 09:58 Currently or been in a relationship where the following occur: No concerns reported Office Procedures Diabetic Foot Exam G9226 - Diabetic Foot Exam (+ sensation to feet with use of monofilament, unable to feel vibration with 128 tuning fork, feet intact bilat) Flu Questionnaire Does the patient have a severe egg allergy?: No Does the patient have severe life threatening allergies?: No Does the patient have a fever or illness today?: No Has the patient ever had Guillain-Fate Syndrome?: No Has the patient ever had any past reaction to a flu shot?: No Results AMB Hemoglobin A1c AMB Hemoglobin A1c 6.9 % Last Edit by Manda Mackay MA on 03/05/25 10:12 Immunizations Fluarix 1750-4000 (PF) 45 mcg (15 mcg x 3)/0.5 mL IM syringe Performing Provider: KSENIA Larson [place] [facility] [place] [facility] Administered by: Manda Mackay MA on 03/05/25 10:28 Dose Route Admin Location Dispensed Lot Number Expiration Date NDC Auto Machinist 0.5 mL IM Right Deltoid 0.5 mL [id number] 09/09/25 08999-012-71 [employer] VIS Given Date VIS Provided VIS Publication Date 03/05/25 Single Vaccine 24 Eligibility Eligibility Date Funding Source Not [facility] Eligible 03/05/25 Private Results Reviewed Results Reviewed: Laboratory Last Values Hgb A1c (Clinic) 6.9 % (4.0-6.0) H 03/05/25 10:04 Coding Level of Care Code Est Pt Level 4 (69746) Diagnoses Uncontrolled diabetes mellitus E11.65 Dermatitis L30.9 Diabetes E11.9 Primary hypertension I10 Hypertension type: primary hypertension Dyslipidemia E78.5 Morbid obesity E66.01 CPT Codes Diabetic Foot Exam - CPT: G9226 - Diabetic Foot Exam ([id number]) Assessment & Plan Assessment & Plan (1) Uncontrolled diabetes mellitus: Comment: IDDM2 Code(s): E11.65 - Type 2 diabetes mellitus with hyperglycemia Category: Medical (2) Dermatitis: Code(s): L30.9 - Dermatitis, unspecified Category: Medical (3) Diabetes: Code(s): E11.9 - Type 2 diabetes mellitus without complications Category: Medical (4) HTN (hypertension): Code(s): I10 - Essential (primary) hypertension Category: Medical Qualifiers: Hypertension type: primary hypertension Qualified Code(s): I10 - Essential (primary) hypertension (5) Dyslipidemia: Code(s): E78.5 - Hyperlipidemia, unspecified Category: Medical (6) Morbid obesity: Code(s): E66.01 - Morbid (severe) obesity due to excess calories Category: Medical Plan . Orders: Orders AMB Hemoglobin A1c Today E11.9 - Type 2 diabetes mellitus without complications Vitamin D 25-OH Total Today E11.9 - Type 2 diabetes mellitus without complications Influenza [id number] Immunization Today Z23 - Encounter for immunization Complete Blood Count Auto Diff Today E11.9 - Type 2 diabetes mellitus without c omplications Comprehensive [place]. Panel Fast Today E11.9 - Type 2 diabetes mellitus without complications TSH reflex Free T4 Today E11.9 - Type 2 diabetes mellitus without complications UA CC w/rflx Micro + Cult Today E11.9 - Type 2 diabetes mellitus without complications Lipid Panel Today E11.9 - Type 2 diabetes mellitus without complications Referrals Dermatology Referral E11.65 - Type 2 diabetes mellitus with hyperglycemia, L30.9 - Dermatitis, unspecified Medications: New tirzepatide (Mounjaro) for 4 weeks 2.5 mg (0.5 mL) subcut QWEEK 2 mL 0RF
[2025-03-05 10:29] VITALS: BP 148/78
== END 2025-03-05 10:30 | disposition home or self-care (01) ==
LOC: HO.HMCC 09:52
PROVIDERS: PCP Nurse Practitioner Family; Visit Provider Nurse Practitioner Family
DX: E11.65 Type 2 diabetes mellitus with hyperglycemia (principal); E11.620 Type 2 diabetes mellitus with diabetic dermatitis; L30.9 Dermatitis, unspecified; I10 Essential (primary) hypertension; E78.5 Hyperlipidemia, unspecified; Z23 Encounter for immunization